=== PATIENT | female | born 1935 | race Caucasian/White ===

== ENCOUNTER 2017-01-27 20:16 | Inpatient (IN) | payer MEDICARE ==
[~2017-01-27] VITALS: Ht 154.9 cm; Wt 54.6 kg
--- NOTE | 2017-01-27 20:51 | ED.ADGEN ---
Adult General Chief Complaint Chief Complaint: POST-OP PROBLEM HPI HPI Patient is a 81 year old female with history of paroxysmal atrial fibrillation , currently not on anticoagulation, who presents with acute onset shortness of breath and palpitations starting approximately 90 minutes prior to ED arrival while walking at local store. Patient denies chest pain. She reports feeling weak and lightheaded. Blood pressure stable. Denies headache, focal neurologic weakness or other strokelike symptoms. Patient was heart rate 140 and an A. fib on sending EKG. Patient denies history of CAD or CHF. Denies leg pain or swelling. Patient reports recent bladder surgery 4 days ago in [place]. She is currently visiting from out of state. Review of Systems Review of Systems Review symptoms as per history of present illness. All other review symptoms are negative. Current Medications Current Medications Current Medications Medications (Trade) Dose Ordered Sig/Ruddy Start Time Stop Time Status Last Admin Dose Admin Digoxin (Lanoxin) 250 mcg 1X ONCE 01/27/17 22:15 01/27/17 22:16 DC 01/27/17 22:28 250 MCG Diltiazem HCl (Cardizem) 10 mg 1X ONCE 01/27/17 21:00 01/27/17 21:01 DC 01/27/17 20:57 10 MG Diltiazem HCl 125 mg/Dextrose 125 ml @ 0 mls/hr 1X ONCE 01/27/17 21:00 01/27/17 21:01 DC 01/27/17 21:00 5 MLS/HR Furosemide (Lasix) 40 mg 1X ONCE 01/27/17 22:15 01/27/17 22:16 DC 01/27/17 22:21 40 MG Heparin Sodium (Porcine) (Heparin Sodium) 1,350 unit PRN Q6HRS PRN 01/27/17 22:00 01/27/17 22:20 DC Heparin Sodium/ Dextrose 500 ml @ 0 mls/hr CONT PRN 01/27/17 22:00 01/27/17 22:20 DC Ondansetron HCl (Zofran) 4 mg PRN Q8HRS PRN 01/27/17 22:30 01/28/17 22:29 Sodium Chloride 1,000 ml @ 0 mls/hr Q0M 01/27/17 22:30 01/28/17 22:29 Allergies Allergies Allergies Coded Allergies Type Severity Reaction Last Updated Verified No Known Drug Allergies 01/27/17 No Physical Exam Physical Exam Constitutional: Well developed, well nourished, no acute distress. HENT: Normocephalic, atraumatic, bilateral external ears normal, oropharynx moist, no oral exudates, nose normal. Eyes: PERRLA, EOMI, conjunctiva normal. Neck: Normal range of motion. Cardiovascular: Tachycardic. Lungs & Thorax: Respirations nonlabored, lung sounds clear. Abdomen: Bowel sounds normal, soft, no tenderness. Skin: Warm, dry. Back: No tenderness. Extremities: Negative [place] signs. Neurologic: Alert and oriented X 3, normal motor function, normal sensory function, no focal deficits noted. Psychologic: Affect normal, judgement normal, mood normal. Current Patient Data Vital Signs Vital Signs Date Time Temp Pulse Resp B/P (MAP) Pulse Ox O2 Delivery O2 Flow Rate FiO2 01/27/17 23:30 138 140/82 (101) 96 Room Air 01/27/17 22:30 18 01/27/17 20:45 98.9 98.9 Lab Values Laboratory Tests Test 01/27/17 20:47 White Blood Count 8.7 x10^3/uL (4.0-11.0) Red Blood Count 4.13 x10^6/uL (3.50-5.40) Hemoglobin 12.5 g/dL (12.0-15.5) Hematocrit 37.4 % (36.0-47.0) Mean Corpuscular Volume 91 fL (79-100) Mean Corpuscular Hemoglobin 30 pg (25-35) Mean Corpuscular Hemoglobin Concent 33 g/dL (31-37) Red Cell Distribution Width 13.9 % (11.5-14.5) Platelet Count 223 x10^3/uL (140-400) Neutrophils (%) (Auto) 75 % (31-73) H Lymphocytes (%) (Auto) 15 % (24-48) L Monocytes (%) (Auto) 8 % (0-9) Eosinophils (%) (Auto) 1 % (0-3) Basophils (%) (Auto) 1 % (0-3) Neutrophils # (Auto) 6.6 x10^3uL (1.8-7.7) Lymphocytes # (Auto) 1.3 x10^3/uL (1.0-4.8) Monocytes # (Auto) 0.7 x10^3/uL (0.0-1.1) Eosinophils # (Auto) 0.1 x10^3/uL (0.0-0.7) Basophils # (Auto) 0.1 x10^3/uL (0.0-0.2) Prothrombin Time 12.3 SEC (11.7-14.0) Prothrombin Time INR 1.0 (0.8-1.1) Sodium Level 139 mmol/L (136-145) Potassium Level 3.8 mmol/L (3.5-5.1) Chloride Level 103 mmol/L (98-107) Carbon Dioxide Level 24 mmol/L (21-32) Anion Gap 12 (6-14) Blood Urea Nitrogen 29 mg/dL (7-20) H Creatinine 1.5 mg/dL (0.6-1.0) H Estimated GFR (Cockcroft-Gault) 33.2 BUN/Creatinine Ratio 19 (6-20) Glucose Level 176 mg/dL (70-99) H Calcium Level 9.2 mg/dL (8.5-10.1) Total Bilirubin 0.4 mg/dL (0.2-1.0) Aspartate Amino Transferase (AST) 35 U/L (15-37) Alanine Aminotransferase (ALT) 26 U/L (14-59) Alkaline Phosphatase 56 U/L (46-116) Troponin I Quantitative 0.019 ng/mL (0.000-0.055) DV-Lul-J-Type Natriuretic Peptide 8014 pg/mL (0-449) H Total Protein 7.1 g/dL (6.4-8.2) Albumin 3.4 g/dL (3.4-5.0) Albumin/Globulin Ratio 0.9 (1.0-1.7) L Laboratory Tests 01/27/17 20:47 Laboratory Tests 01/27/17 20:47 EKG EKG [EKG: A. fib with RVR.] Radiology/Procedures Radiology/Procedures [Chest X-ray: Increased pulmonary vascular congestion.] Course & Med Decision Making Course & Med Decision Making Pertinent Labs and Imaging studies reviewed. (See chart for details) [Patient with A. fib with RVR with poor tolerance of Cardizem due to hypotension. Single dose of digoxin and Lasix given with some improvement. IV fluids cautiously started. consult 8. Recommendations are CBC admission, continue IV Cardizem and hold heparin due to recent pelvic surgery. Dr. Wallis supervisor contact lens for hospitalist service to admit. ] Brit Disclaimer Brit Disclaimer This electronic medical record was generated, in whole or in part, using a voice recognition dictation system. MARTY JARAMILLO DO Jan 27, 2017 20:51
[2017-01-27] MEDS ORDERED: dilTIAZem IV PUSH 25 MG/5 ML VIAL IVP ONE (21:00)
[2017-01-27 21:03] LABS: BASO # 0.1 x10^3/uL (0.0-0.2); BASO % 1 % (0-3); EOS % 1 % (0-3); HEMATOCRIT 37.4 % (36.0-47.0); HEMOGLOBIN 12.5 g/dL (12.0-15.5); LYMPH # 1.3 x10^3/uL (1.0-4.8); LYMPH % 15 % (24-48); MEAN CORPUSCULAR HEMOGLOBIN 30 pg (25-35); MEAN CORPUSCULAR HGB CONC 33 g/dL (31-37); MEAN CORPUSCULAR VOLUME 91 fL (79-100); MONO % 8 % (0-9); NEUT % 75 % (31-73); PLATELET COUNT 223 x10^3/uL (140-400); RED BLOOD COUNT 4.13 x10^6/uL (3.50-5.40); RED CELL DISTRIBUTION WIDTH 13.9 % (11.5-14.5); WHITE BLOOD COUNT 8.7 x10^3/uL (4.0-11.0)
[2017-01-27 21:11] LABS: PROTHROMBIN TIME PATIENT 12.3 SEC (11.7-14.0)
[2017-01-27 21:17] LABS: CALCIUM 9.2 mg/dL (8.5-10.1); CREATININE 1.5 mg/dL (0.6-1.0); GFR 33.2; POTASSIUM 3.8 mmol/L (3.5-5.1)
[2017-01-27 21:23] LABS: ALBUMIN 3.4 g/dL (3.4-5.0); ALBUMIN/GLOBULIN RATIO 0.9 (1.0-1.7); TOTAL BILIRUBIN 0.4 mg/dL (0.2-1.0); TOTAL PROTEIN 7.1 g/dL (6.4-8.2)
[2017-01-27] MEDS ORDERED: HEPARIN for IV BOLUS 10,000 UNIT/10 ML VIAL. IV PRN (22:00)
[2017-01-27] MEDS ORDERED: HEPARIN 25,000UTS/500ML PREMIX 500 ML IV PRN (22:00)
[2017-01-27] MEDS ORDERED: FUROSEMIDE 40 MG/4 ML VIAL. IVP ONE (22:15)
[2017-01-27] MEDS ORDERED: DIGOXIN IV 500 MCG/2 ML AMPUL. IV ONE (22:15)
[2017-01-27] MEDS ORDERED: ONDANSETRON PF 4 MG/2 ML VIAL. IV PRN (22:30)
[2017-01-27] MEDS ORDERED: IV NORMAL SALINE 1000ML BAG 1,000 ML IV SCH (22:30)
[2017-01-28] VITALS (7 sets, daily range): BP systolic 106–162; BP diastolic 47–95
[2017-01-28] MEDS ORDERED: GABA-585 PO (01:15)
[2017-01-28] MEDS ORDERED: CALC-98 PO (01:15)
[2017-01-28] MEDS ORDERED: MULT1TAB52 PO (01:15)
[2017-01-28] MEDS ORDERED: ACET325T9 PO (01:15)
[2017-01-28] MEDS ORDERED: AMLO10TA4 PO (01:15)
[2017-01-28] MEDS ORDERED: CALC300T5 PO (01:15)
[2017-01-28] MEDS ORDERED: LISI-334 PO (01:15)
[2017-01-28 05:09] LABS: BASO # 0.1 x10^3/uL (0.0-0.2); BASO % 1 % (0-3); EOS % 2 % (0-3); HEMOGLOBIN 12.3 g/dL (12.0-15.5); LYMPH # 2.1 x10^3/uL (1.0-4.8); LYMPH % 25 % (24-48); MEAN CORPUSCULAR HEMOGLOBIN 30 pg (25-35); MEAN CORPUSCULAR HGB CONC 32 g/dL (31-37); MEAN CORPUSCULAR VOLUME 91 fL (79-100); MONO % 10 % (0-9); NEUT % 63 % (31-73); PLATELET COUNT 207 x10^3/uL (140-400); RED BLOOD COUNT 4.16 x10^6/uL (3.50-5.40); WHITE BLOOD COUNT 8.6 x10^3/uL (4.0-11.0)
[2017-01-28] MEDS: ACETAMINOPHEN 325 MG TABLET. PO PRN (05:09)
[2017-01-28 05:44] LABS: CALCIUM 8.6 mg/dL (8.5-10.1); CREATININE 1.3 mg/dL (0.6-1.0); GFR 39.1; POTASSIUM 3.5 mmol/L (3.5-5.1)
--- NOTE | 2017-01-28 07:24 | EKG ---
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
--- NOTE | 2017-01-28 08:19 | RAD ---
AP portable chest. History: Short of air Portable AP view was taken of the chest. There is no old study for comparison. The heart is upper normal in size. There are no confluent areas of infiltrate. There is no effusion. The aorta is mildly tortuous. There is arthritis in the shoulders. There is mild scoliosis. Impression: 1. Mild cardiac enlargement. 2. No acute infiltrates.
[2017-01-28] MEDS ORDERED: FUROSEMIDE 40 MG/4 ML VIAL. IVP SCH (09:00)
--- NOTE | 2017-01-28 11:37 | PDOC2 ---
CARDIAC CONSULT DATE OF CONSULT Date of Consult DATE: 01/28/17 TIME: 11:28 REASON FOR CONSULT Reason for Consult: AFIB RVR, CHF REFERRING PHYSICIAN Referring Physician: Kishore SOURCE Source: Chart review, Patient HISTORY OF PRESENT ILLNESS HISTORY OF PRESENT ILLNESS This is an 81 yo female admitted for complains of weakness. Reports that she is staying here with her son since she just had bladder suspension from 01/23/2017 at [place]. She resides at [place] and sees a music ministries director over there. She does not take any rate controlling medications and no ASA. 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 While she was at the grocery store, she just suddenly felt weak. Denies any CP, SOA, palpitations. Upon admission she was noted with AFIB RVR which she was treated with Digoxin and cardizem and actually had several episodes this am with HR in the 40s. Presently still on AFIB but rate controlled. 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; left nephrectomy) FAMILY HISTORY Family History noncontributory to CV SOCIAL HISTORY Smoke: No ALCOHOL: none Drugs: None Lives: Alone CURRENT MEDICATIONS CURRENT MEDICATIONS Current Medications Medications (Trade) Dose Ordered Sig/Ruddy Route PRN Reason Start Time Stop Time Status Last Admin Dose Admin Diltiazem HCl (Cardizem) 10 mg 1X ONCE IVP 01/27/17 21:00 01/27/17 21:01 DC 01/27/17 20:57 Diltiazem HCl 125 mg/Dextrose 125 ml @ 0 mls/hr 1X ONCE IV 01/27/17 21:00 01/27/17 21:01 DC 01/27/17 21:00 Digoxin (Lanoxin) 250 mcg 1X ONCE IV 01/27/17 22:15 01/27/17 22:16 DC 01/27/17 22:28 Furosemide (Lasix) 40 mg 1X ONCE IVP 01/27/17 22:15 01/27/17 22:16 DC 01/27/17 22:21 Furosemide (Lasix) 40 mg [id number] IVP 01/28/17 09:00 01/28/17 08:36 Diltiazem HCl 125 mg/Dextrose 125 ml @ 0 mls/hr 1X ONCE IV 01/28/17 00:15 01/28/17 00:16 DC 01/28/17 09:31 Acetaminophen (Tylenol) 650 mg PRN Q6HRS PRN PO PAIN 01/28/17 04:45 01/28/17 05:09 ALLERGIES ALLERGIES: Coded Allergies: No Known Drug Allergies (Unverified , 01/27/17) ROS Review of System 14 point ROS evaluated with pertinent positives noted per HPI PHYSICAL EXAM General: Alert, Oriented X3, Cooperative, No acute distress HEENT: Atraumatic, Mucous membr. moist/pink Lungs: Clear to auscultation, Normal air movement Heart: Regular rate, Normal S1, Normal S2, Other (4/6 systolic murmur to NITZA border) Abdomen: Soft, No tenderness Extremities: No cyanosis, No edema Skin: No breakdown Neuro: Normal speech, Sensation intact Psych/Mental Status: Mental status NL, Mood NL MUSCULOSKELETAL: Osteoarthritic changes both hands VITALS VITALS Vital Signs Date Time Temp Pulse Resp B/P (MAP) Pulse Ox O2 Delivery O2 Flow Rate FiO2 01/28/17 09:44 Room Air 01/28/17 07:30 97.5 74 20 112/61 (78) 96 97.5 LABS Lab: Laboratory Tests Test 01/27/17 20:47 01/28/17 04:30 01/28/17 10:29 White Blood Count 8.7 x10^3/uL (4.0-11.0) 8.6 x10^3/uL (4.0-11.0) Red Blood Count 4.13 x10^6/uL (3.50-5.40) 4.16 x10^6/uL (3.50-5.40) Hemoglobin 12.5 g/dL (12.0-15.5) 12.3 g/dL (12.0-15.5) Hematocrit 37.4 % (36.0-47.0) 38.0 % (36.0-47.0) Mean Corpuscular Volume 91 fL (79-100) 91 fL (79-100) Mean Corpuscular Hemoglobin 30 pg (25-35) 30 pg (25-35) Mean Corpuscular Hemoglobin Concent 33 g/dL (31-37) 32 g/dL (31-37) Red Cell Distribution Width 13.9 % (11.5-14.5) 14.0 % (11.5-14.5) Platelet Count 223 x10^3/uL (140-400) 207 x10^3/uL (140-400) Neutrophils (%) (Auto) 75 % (31-73) 63 % (31-73) Lymphocytes (%) (Auto) 15 % (24-48) 25 % (24-48) Monocytes (%) (Auto) 8 % (0-9) 10 % (0-9) Eosinophils (%) (Auto) 1 % (0-3) 2 % (0-3) Basophils (%) (Auto) 1 % (0-3) 1 % (0-3) Neutrophils # (Auto) 6.6 x10^3uL (1.8-7.7) 5.4 x10^3uL (1.8-7.7) Lymphocytes # (Auto) 1.3 x10^3/uL (1.0-4.8) 2.1 x10^3/uL (1.0-4.8) Monocytes # (Auto) 0.7 x10^3/uL (0.0-1.1) 0.9 x10^3/uL (0.0-1.1) Eosinophils # (Auto) 0.1 x10^3/uL (0.0-0.7) 0.1 x10^3/uL (0.0-0.7) Basophils # (Auto) 0.1 x10^3/uL (0.0-0.2) 0.1 x10^3/uL (0.0-0.2) Prothrombin Time 12.3 SEC (11.7-14.0) Prothromb Time International Ratio 1.0 (0.8-1.1) Sodium Level 139 mmol/L (136-145) 141 mmol/L (136-145) Potassium Level 3.8 mmol/L (3.5-5.1) 3.5 mmol/L (3.5-5.1) Chloride Level 103 mmol/L (98-107) 105 mmol/L (98-107) Carbon Dioxide Level 24 mmol/L (21-32) 25 mmol/L (21-32) Anion Gap 12 (6-14) 11 (6-14) Blood Urea Nitrogen 29 mg/dL (7-20) 35 mg/dL (7-20) Creatinine 1.5 mg/dL (0.6-1.0) 1.3 mg/dL (0.6-1.0) Estimated GFR (Cockcroft-Gault) 33.2 39.1 BUN/Creatinine Ratio 19 (6-20) Glucose Level 176 mg/dL (70-99) 118 mg/dL (70-99) Calcium Level 9.2 mg/dL (8.5-10.1) 8.6 mg/dL (8.5-10.1) Total Bilirubin 0.4 mg/dL (0.2-1.0) Aspartate Amino Transf (AST/SGOT) 35 U/L (15-37) Alanine Aminotransferase (ALT/SGPT) 26 U/L (14-59) Alkaline Phosphatase 56 U/L (46-116) Troponin I Quantitative 0.019 ng/mL (0.000-0.055) 0.321 ng/mL (0.000-0.055) XT-Gds-V-Type Natriuretic Peptide 8014 pg/mL (0-449) Total Protein 7.1 g/dL (6.4-8.2) Albumin 3.4 g/dL (3.4-5.0) Albumin/Globulin Ratio 0.9 (1.0-1.7) Thyroid Stimulating Hormone (TSH) 1.141 uIU/mL (0.358-3.74) ASSESSMENT/PLAN ASSESSMENT/PLAN 1. AFIB/flutter RVR with aberrancy: Presently rate controlled. Troponin at 0.321 likely demand mediated from RVR. 2. Elevated pro NT BNP: due to above. No acute CHF 3. HTN: Controlled Recommendations 1. Refused OAC/SIMON due to only one kidney. Agreed with [facility]. 2. Stop cardizem and will place on 12.5 mg of lopressor [id number] and note BP trend and HR response 3. DC lasix. Pt on norvasc and lisinopril at home and will hold for now. 4. TSH normal, will also check lipid panel and TTE tomorrow. 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
[2017-01-28 11:55] LABS: MAGNESIUM 1.9 mg/dL (1.8-2.4)
[2017-01-28] MEDS: METOPROLOL TART IMMED RELEASE 25 MG TABLET. PO SCH ×3 (11:55→23:22)
[2017-01-28] MEDS: ASPIRIN ENTERIC COATED 81 MG TABLET.DR. PO SCH (11:55)
[2017-01-28 12:00] LABS: CHOLESTEROL/HDL RATIO 2.7
[2017-01-28] MEDS ORDERED: POTASSIUM CHLORIDE 20 MEQ TABLET.ER. PO ONE (13:30)
--- NOTE | 2017-01-28 14:13 | PDOC1 ---
History and Physical Date of Admission Date of Admission 01/28/17 Identification/Chief Complaint Chief Complaint palpitation Problems: Source Source: Caregiver, Chart review, Patient History of Present Illness History of Present Illness Patient is a 81 year old female with history of paroxysmal atrial fibrillation, sinus and not on any meds on AFIb ,came for palpitation. Pt came from [place] to visit her son. She was found rapid afib in ER, on cardizem drip and STILL afib, HR ok at 80s. She denies chest pain, sob, fever, chills, N/V. no h/o CAD OR CHF. Patient reports recent bladder surgery 4 days ago in [place]. 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; left nephrectomy) Family History Family History: Hypertension Social History Smoke: No ALCOHOL: none Drugs: None Current Problem List Problem List Problems Medical Problems: (1) Atrial fibrillation with RVR Status: Acute (2) CHF (congestive heart failure) Status: Acute Current Medications Current Medications Current Medications Medications (Trade) Dose Ordered Sig/Ruddy Start Time Stop Time Status Last Admin Dose Admin Acetaminophen (Tylenol) 650 mg PRN Q6HRS PRN 01/28/17 04:45 01/28/17 05:09 325 MG Aspirin (Ecotrin) 81 mg [id number] 01/29/17 08:00 UNV Digoxin (Lanoxin) 250 mcg 1X ONCE 01/27/17 22:15 01/27/17 22:16 DC 01/27/17 22:28 250 MCG Diltiazem HCl (Cardizem) 10 mg 1X ONCE 01/27/17 21:00 01/27/17 21:01 DC 01/27/17 20:57 10 MG Diltiazem HCl 125 mg/Dextrose 125 ml @ 0 mls/hr 1X ONCE 01/28/17 00:15 01/28/17 00:16 DC 01/28/17 09:31 10 MLS/HR Furosemide (Lasix) 40 mg [id number] 01/28/17 09:00 01/28/17 11:38 DC 01/28/17 08:36 40 MG Heparin Sodium (Porcine) (Heparin Sodium) 1,350 unit PRN Q6HRS PRN 01/27/17 22:00 01/27/17 22:20 DC Heparin Sodium/ Dextrose 500 ml @ 0 mls/hr CONT PRN 01/27/17 22:00 01/27/17 22:20 DC Metoprolol Tartrate (Lopressor) 12.5 mg Q6HRS 01/28/17 12:00 01/28/17 11:55 12.5 MG Ondansetron HCl (Zofran) 4 mg PRN Q8HRS PRN 01/27/17 22:30 01/28/17 22:29 Potassium Chloride (Klor-Con) 40 meq 1X ONCE 01/28/17 13:30 01/28/17 13:31 DC 01/28/17 13:28 40 MEQ Sodium Chloride 1,000 ml @ 0 mls/hr Q0M 01/27/17 22:30 01/28/17 22:29 Allergies Allergies Allergies Coded Allergies Type Severity Reaction Last Updated Verified No Known Drug Allergies 01/27/17 No ROS Review of System CONSTITUTIONAL: No fever or chills EYES: No recent changes SKIN: No rash or itching CARDIOVASCULAR: No chest pain, syncope, palpitations, or edema RESPIRATORY: No SOB or cough GASTROINTESTINAL: No nausea, vomiting or abdominal pain NEUROLOGICAL: No headaches or weakness ENDOCRINE: No cold or heat intolerance GENITOURINARY: No urgency or frequency of urination MUSCULOSKELETAL: No back pain or joint pain LYMPHATICS: No enlarged lymph nodes PSYCHIATRIC: No anxiety or depression Physical Exam Physical Exam GEN.: No apparent distress. Alert and oriented. HEENT: Head is normocephalic, atraumatic NECK: Supple. LUNGS: Clear to auscultation. HEART: irregular, S1, S2 present. Peripheral pulses intact ABDOMEN: Soft, nontender. Positive bowel sounds. EXTREMITIES: Without any cyanosis. NEUROLOGIC: Normal speech, normal tone PSYCHIATRIC: Normal affect, normal mood. SKIN: No ulcerations Vitals Vitals Vital Signs Date Time Temp Pulse Resp B/P (MAP) Pulse Ox O2 Delivery O2 Flow Rate FiO2 01/28/17 11:55 74 112/61 7/15/17 11:15 97.5 20 97 Room Air 97.5 Labs Labs Laboratory Tests Test 01/27/17 20:47 01/28/17 04:30 01/28/17 10:29 White Blood Count 8.7 x10^3/uL (4.0-11.0) 8.6 x10^3/uL (4.0-11.0) Red Blood Count 4.13 x10^6/uL (3.50-5.40) 4.16 x10^6/uL (3.50-5.40) Hemoglobin 12.5 g/dL (12.0-15.5) 12.3 g/dL (12.0-15.5) Hematocrit 37.4 % (36.0-47.0) 38.0 % (36.0-47.0) Mean Corpuscular Volume 91 fL (79-100) 91 fL (79-100) Mean Corpuscular Hemoglobin 30 pg (25-35) 30 pg (25-35) Mean Corpuscular Hemoglobin Concent 33 g/dL (31-37) 32 g/dL (31-37) Red Cell Distribution Width 13.9 % (11.5-14.5) 14.0 % (11.5-14.5) Platelet Count 223 x10^3/uL (140-400) 207 x10^3/uL (140-400) Neutrophils (%) (Auto) 75 % (31-73) 63 % (31-73) Lymphocytes (%) (Auto) 15 % (24-48) 25 % (24-48) Monocytes (%) (Auto) 8 % (0-9) 10 % (0-9) Eosinophils (%) (Auto) 1 % (0-3) 2 % (0-3) Basophils (%) (Auto) 1 % (0-3) 1 % (0-3) Neutrophils # (Auto) 6.6 x10^3uL (1.8-7.7) 5.4 x10^3uL (1.8-7.7) Lymphocytes # (Auto) 1.3 x10^3/uL (1.0-4.8) 2.1 x10^3/uL (1.0-4.8) Monocytes # (Auto) 0.7 x10^3/uL (0.0-1.1) 0.9 x10^3/uL (0.0-1.1) Eosinophils # (Auto) 0.1 x10^3/uL (0.0-0.7) 0.1 x10^3/uL (0.0-0.7) Basophils # (Auto) 0.1 x10^3/uL (0.0-0.2) 0.1 x10^3/uL (0.0-0.2) Prothrombin Time 12.3 SEC (11.7-14.0) Prothromb Time International Ratio 1.0 (0.8-1.1) Sodium Level 139 mmol/L (136-145) 141 mmol/L (136-145) Potassium Level 3.8 mmol/L (3.5-5.1) 3.5 mmol/L (3.5-5.1) Chloride Level 103 mmol/L (98-107) 105 mmol/L (98-107) Carbon Dioxide Level 24 mmol/L (21-32) 25 mmol/L (21-32) Anion Gap 12 (6-14) 11 (6-14) Blood Urea Nitrogen 29 mg/dL (7-20) 35 mg/dL (7-20) Creatinine 1.5 mg/dL (0.6-1.0) 1.3 mg/dL (0.6-1.0) Estimated GFR (Cockcroft-Gault) 33.2 39.1 BUN/Creatinine Ratio 19 (6-20) Glucose Level 176 mg/dL (70-99) 118 mg/dL (70-99) Calcium Level 9.2 mg/dL (8.5-10.1) 8.6 mg/dL (8.5-10.1) Total Bilirubin 0.4 mg/dL (0.2-1.0) Aspartate Amino Transf (AST/SGOT) 35 U/L (15-37) Alanine Aminotransferase (ALT/SGPT) 26 U/L (14-59) Alkaline Phosphatase 56 U/L (46-116) Troponin I Quantitative 0.019 ng/mL (0.000-0.055) 0.321 ng/mL (0.000-0.055) MS-Zyp-Q-Type Natriuretic Peptide 8014 pg/mL (0-449) Total Protein 7.1 g/dL (6.4-8.2) Albumin 3.4 g/dL (3.4-5.0) Albumin/Globulin Ratio 0.9 (1.0-1.7) Magnesium Level 1.9 mg/dL (1.8-2.4) Triglycerides Level 87 mg/dL (0-150) Cholesterol Level 166 mg/dL (0-200) LDL Cholesterol, Calculated 87 mg/dL (0-100) VLDL Cholesterol, Calculated 17 mg/dL (0-40) Non-HDL Cholesterol Calculated 104 mg/dL (0-129) HDL Cholesterol 62 mg/dL (40-60) Cholesterol/HDL Ratio 2.7 Thyroid Stimulating Hormone (TSH) 1.141 uIU/mL (0.358-3.74) Laboratory Tests Test 01/27/17 20:47 01/28/17 04:30 01/28/17 10:29 White Blood Count 8.7 x10^3/uL (4.0-11.0) 8.6 x10^3/uL (4.0-11.0) Red Blood Count 4.13 x10^6/uL (3.50-5.40) 4.16 x10^6/uL (3.50-5.40) Hemoglobin 12.5 g/dL (12.0-15.5) 12.3 g/dL (12.0-15.5) Hematocrit 37.4 % (36.0-47.0) 38.0 % (36.0-47.0) Mean Corpuscular Volume 91 fL (79-100) 91 fL (79-100) Mean Corpuscular Hemoglobin 30 pg (25-35) 30 pg (25-35) Mean Corpuscular Hemoglobin Concent 33 g/dL (31-37) 32 g/dL (31-37) Red Cell Distribution Width 13.9 % (11.5-14.5) 14.0 % (11.5-14.5) Platelet Count 223 x10^3/uL (140-400) 207 x10^3/uL (140-400) Neutrophils (%) (Auto) 75 % (31-73) 63 % (31-73) Lymphocytes (%) (Auto) 15 % (24-48) 25 % (24-48) Monocytes (%) (Auto) 8 % (0-9) 10 % (0-9) Eosinophils (%) (Auto) 1 % (0-3) 2 % (0-3) Basophils (%) (Auto) 1 % (0-3) 1 % (0-3) Neutrophils # (Auto) 6.6 x10^3uL (1.8-7.7) 5.4 x10^3uL (1.8-7.7) Lymphocytes # (Auto) 1.3 x10^3/uL (1.0-4.8) 2.1 x10^3/uL (1.0-4.8) Monocytes # (Auto) 0.7 x10^3/uL (0.0-1.1) 0.9 x10^3/uL (0.0-1.1) Eosinophils # (Auto) 0.1 x10^3/uL (0.0-0.7) 0.1 x10^3/uL (0.0-0.7) Basophils # (Auto) 0.1 x10^3/uL (0.0-0.2) 0.1 x10^3/uL (0.0-0.2) Prothrombin Time 12.3 SEC (11.7-14.0) Prothromb Time International Ratio 1.0 (0.8-1.1) Sodium Level 139 mmol/L (136-145) 141 mmol/L (136-145) Potassium Level 3.8 mmol/L (3.5-5.1) 3.5 mmol/L (3.5-5.1) Chloride Level 103 mmol/L (98-107) 105 mmol/L (98-107) Carbon Dioxide Level 24 mmol/L (21-32) 25 mmol/L (21-32) Anion Gap 12 (6-14) 11 (6-14) Blood Urea Nitrogen 29 mg/dL (7-20) 35 mg/dL (7-20) Creatinine 1.5 mg/dL (0.6-1.0) 1.3 mg/dL (0.6-1.0) Estimated GFR (Cockcroft-Gault) 33.2 39.1 BUN/Creatinine Ratio 19 (6-20) Glucose Level 176 mg/dL (70-99) 118 mg/dL (70-99) Calcium Level 9.2 mg/dL (8.5-10.1) 8.6 mg/dL (8.5-10.1) Total Bilirubin 0.4 mg/dL (0.2-1.0) Aspartate Amino Transf (AST/SGOT) 35 U/L (15-37) Alanine Aminotransferase (ALT/SGPT) 26 U/L (14-59) Alkaline Phosphatase 56 U/L (46-116) Troponin I Quantitative 0.019 ng/mL (0.000-0.055) 0.321 ng/mL (0.000-0.055) ID-Qcy-U-Type Natriuretic Peptide 8014 pg/mL (0-449) Total Protein 7.1 g/dL (6.4-8.2) Albumin 3.4 g/dL (3.4-5.0) Albumin/Globulin Ratio 0.9 (1.0-1.7) Magnesium Level 1.9 mg/dL (1.8-2.4) Triglycerides Level 87 mg/dL (0-150) Cholesterol Level 166 mg/dL (0-200) LDL Cholesterol, Calculated 87 mg/dL (0-100) VLDL Cholesterol, Calculated 17 mg/dL (0-40) Non-HDL Cholesterol Calculated 104 mg/dL (0-129) HDL Cholesterol 62 mg/dL (40-60) Cholesterol/HDL Ratio 2.7 Thyroid Stimulating Hormone (TSH) 1.141 uIU/mL (0.358-3.74) VTE Prophylaxis Ordered VTE Prophylaxis Devices: Yes VTE Pharmacological Prophylaxi: Yes Assessment/Plan Assessment/Plan rapid afib htn neuropathy ckd3 1 kidney plan: fu with card shoshana omer, add metoprolol 12.5 q6h hold other htn Meds since BP is ok cont gabapentin dvt ppx no AC for now DAKOTA ARGUETA MD Jan 28, 2017 14:13
[2017-01-28] MEDS ORDERED: traMADol 50 MG TABLET PO PRN (14:15)
[2017-01-28] MEDS ORDERED: MORPHINE SULFATE 2 MG/ML DISP.SYRIN. IV PRN (14:15)
[2017-01-28] MEDS ORDERED: hydrALAZINE 20 MG/ML VIAL. IVP PRN (14:15)
[2017-01-28] MEDS ORDERED: ONDANSETRON PF 4 MG/2 ML VIAL. IV PRN (14:15)
[2017-01-28] MEDS ORDERED: DOCUSATE SODIUM 100 MG CAPSULE. PO PRN (14:15)
[2017-01-28] MEDS: GABAPENTIN 100 MG CAPSULE. PO SCH ×2 (15:59→20:52)
[2017-01-28] MEDS: HEPARIN PF for SUB-Q USE 5,000 UNIT/0.5 ML VIAL. SQ SCH ×2 (16:04→23:15)
--- NOTE | 2017-01-28 16:05 | EKG ---
[facility] [address] [place] [address] Test Date: 2017-01-28 Test Time: 15:52:29 Pat Name: JULIETTE GAO Department: Room: 205 1 Gender: F [employer]: THEODORE : 1935 Requested By: GUNNAR PANIAGUA Order Number: [id number] Reading MD: Measurements Intervals [place] Rate: 79 P: PA: QRS: -46 QRSD: 98 T: -146 QT: 408 QTc: 469 Interpretive Statements IRREGULAR RHYTHM, NO P-WAVE FOUND VENTRICULAR PREMATURE COMPLEX(ES) ABNORMAL LEFT AXIS DEVIATION LEFT ANTERIOR FASCICULAR BLOCK LVH WITH REPOLARIZATION ABNORMALITY QRS(T) CONTOUR ABNORMALITY CONSIDER ANTEROSEPTAL MYOCARDIAL DAMAGE ABNORMAL ECG RI6.01 No previous ECG available for comparison
[2017-01-29 03:35] VITALS: BP 110/57
[2017-01-29] MEDS: ACETAMINOPHEN 325 MG TABLET. PO PRN ×2 (03:58→12:53)
[2017-01-29 05:36] LABS: BASO # 0.1 x10^3/uL (0.0-0.2); BASO % 1 % (0-3); EOS % 3 % (0-3); HEMATOCRIT 35.8 % (36.0-47.0); HEMOGLOBIN 12.1 g/dL (12.0-15.5); LYMPH # 3.4 x10^3/uL (1.0-4.8); LYMPH % 42 % (24-48); MEAN CORPUSCULAR HEMOGLOBIN 30 pg (25-35); MEAN CORPUSCULAR HGB CONC 34 g/dL (31-37); MEAN CORPUSCULAR VOLUME 90 fL (79-100); MONO % 9 % (0-9); NEUT % 46 % (31-73); PLATELET COUNT 225 x10^3/uL (140-400); RED BLOOD COUNT 3.98 x10^6/uL (3.50-5.40); RED CELL DISTRIBUTION WIDTH 14.2 % (11.5-14.5)
[2017-01-29 05:46] LABS: CALCIUM 8.1 mg/dL (8.5-10.1); CREATININE 1.3 mg/dL (0.6-1.0); GFR 39.1; POTASSIUM 4.1 mmol/L (3.5-5.1)
[2017-01-29] MEDS: HEPARIN PF for SUB-Q USE 5,000 UNIT/0.5 ML VIAL. SQ SCH ×3 (06:20→22:07)
[2017-01-29] MEDS: METOPROLOL TART IMMED RELEASE 25 MG TABLET. PO SCH ×3 (06:25→17:10)
[2017-01-29 07:00] VITALS: BP 109/72
[2017-01-29] MEDS: GABAPENTIN 100 MG CAPSULE. PO SCH ×2 (07:56→22:04)
[2017-01-29] MEDS: ASPIRIN ENTERIC COATED 81 MG TABLET.DR. PO SCH (07:56)
[2017-01-29] MEDS ORDERED: ASPIRIN ENTERIC COATED 81 MG TABLET.DR. PO SCH (08:00)
[2017-01-29] MEDS ORDERED: DIGOXIN 250 MCG TABLET. PO STA (09:13)
[2017-01-29 11:00] VITALS: BP 132/74
--- NOTE | 2017-01-29 13:06 | PDOC ---
PROGRESS NOTES Chief Complaint Chief Complaint rapid afib htn neuropathy ckd3 1 kidney plan: fu with card dc cardizem drip, add metoprolol 12.5 q6h BP lower side, add dig x1, hope bp better then can increase metoprolol hold other htn Meds since BP is ok cont gabapentin dvt ppx no AC for now History of Present Illness History of Present Illness still rapid afib, cardizem drip stopped, on low dose metoprolol, bp lower side Vitals Vitals Vital Signs Date Time Temp Pulse Resp B/P (MAP) Pulse Ox O2 Delivery O2 Flow Rate FiO2 01/29/17 12:54 97 132/74 01/29/17 11:00 98.1 16 94 Room Air 98.1 Physical Exam General: Alert, Oriented X3, Cooperative, No acute distress Heart: Normal S1, Normal S2, Other (4/6 systolic murmur to NITZA border, irregular) Lungs: Clear Abdomen: Soft, No tenderness Extremities: No cyanosis, No edema Skin: No breakdown Labs LABS Laboratory Tests Test 01/29/17 04:38 White Blood Count 8.0 x10^3/uL (4.0-11.0) Red Blood Count 3.98 x10^6/uL (3.50-5.40) Hemoglobin 12.1 g/dL (12.0-15.5) Hematocrit 35.8 % (36.0-47.0) Mean Corpuscular Volume 90 fL (79-100) Mean Corpuscular Hemoglobin 30 pg (25-35) Mean Corpuscular Hemoglobin Concent 34 g/dL (31-37) Red Cell Distribution Width 14.2 % (11.5-14.5) Platelet Count 225 x10^3/uL (140-400) Neutrophils (%) (Auto) 46 % (31-73) Lymphocytes (%) (Auto) 42 % (24-48) Monocytes (%) (Auto) 9 % (0-9) Eosinophils (%) (Auto) 3 % (0-3) Basophils (%) (Auto) 1 % (0-3) Neutrophils # (Auto) 3.7 x10^3uL (1.8-7.7) Lymphocytes # (Auto) 3.4 x10^3/uL (1.0-4.8) Monocytes # (Auto) 0.7 x10^3/uL (0.0-1.1) Eosinophils # (Auto) 0.2 x10^3/uL (0.0-0.7) Basophils # (Auto) 0.1 x10^3/uL (0.0-0.2) Sodium Level 142 mmol/L (136-145) Potassium Level 4.1 mmol/L (3.5-5.1) Chloride Level 107 mmol/L (98-107) Carbon Dioxide Level 22 mmol/L (21-32) Anion Gap 13 (6-14) Blood Urea Nitrogen 37 mg/dL (7-20) Creatinine 1.3 mg/dL (0.6-1.0) Estimated GFR (Cockcroft-Gault) 39.1 Glucose Level 107 mg/dL (70-99) Calcium Level 8.1 mg/dL (8.5-10.1) Review of Systems Review of Systems no fever, chills, sob or chest pain Assessment and Plan Assessmemt and Plan Problems Medical Problems: (1) Atrial fibrillation with RVR Status: Acute (2) CHF (congestive heart failure) Status: Acute Problems: Comment Review of Relevant I have reviewed the following items rica (where applicable) has been applied. Labs Laboratory Tests Test 01/27/17 20:47 01/28/17 04:30 01/28/17 10:29 01/29/17 04:38 White Blood Count 8.7 x10^3/uL (4.0-11.0) 8.6 x10^3/uL (4.0-11.0) 8.0 x10^3/uL (4.0-11.0) Red Blood Count 4.13 x10^6/uL (3.50-5.40) 4.16 x10^6/uL (3.50-5.40) 3.98 x10^6/uL (3.50-5.40) Hemoglobin 12.5 g/dL (12.0-15.5) 12.3 g/dL (12.0-15.5) 12.1 g/dL (12.0-15.5) Hematocrit 37.4 % (36.0-47.0) 38.0 % (36.0-47.0) 35.8 % (36.0-47.0) Mean Corpuscular Volume 91 fL (79-100) 91 fL (79-100) 90 fL (79-100) Mean Corpuscular Hemoglobin 30 pg (25-35) 30 pg (25-35) 30 pg (25-35) Mean Corpuscular Hemoglobin Concent 33 g/dL (31-37) 32 g/dL (31-37) 34 g/dL (31-37) Red Cell Distribution Width 13.9 % (11.5-14.5) 14.0 % (11.5-14.5) 14.2 % (11.5-14.5) Platelet Count 223 x10^3/uL (140-400) 207 x10^3/uL (140-400) 225 x10^3/uL (140-400) Neutrophils (%) (Auto) 75 % (31-73) 63 % (31-73) 46 % (31-73) Lymphocytes (%) (Auto) 15 % (24-48) 25 % (24-48) 42 % (24-48) Monocytes (%) (Auto) 8 % (0-9) 10 % (0-9) 9 % (0-9) Eosinophils (%) (Auto) 1 % (0-3) 2 % (0-3) 3 % (0-3) Basophils (%) (Auto) 1 % (0-3) 1 % (0-3) 1 % (0-3) Neutrophils # (Auto) 6.6 x10^3uL (1.8-7.7) 5.4 x10^3uL (1.8-7.7) 3.7 x10^3uL (1.8-7.7) Lymphocytes # (Auto) 1.3 x10^3/uL (1.0-4.8) 2.1 x10^3/uL (1.0-4.8) 3.4 x10^3/uL (1.0-4.8) Monocytes # (Auto) 0.7 x10^3/uL (0.0-1.1) 0.9 x10^3/uL (0.0-1.1) 0.7 x10^3/uL (0.0-1.1) Eosinophils # (Auto) 0.1 x10^3/uL (0.0-0.7) 0.1 x10^3/uL (0.0-0.7) 0.2 x10^3/uL (0.0-0.7) Basophils # (Auto) 0.1 x10^3/uL (0.0-0.2) 0.1 x10^3/uL (0.0-0.2) 0.1 x10^3/uL (0.0-0.2) Prothrombin Time 12.3 SEC (11.7-14.0) Prothromb Time International Ratio 1.0 (0.8-1.1) Sodium Level 139 mmol/L (136-145) 141 mmol/L (136-145) 142 mmol/L (136-145) Potassium Level 3.8 mmol/L (3.5-5.1) 3.5 mmol/L (3.5-5.1) 4.1 mmol/L (3.5-5.1) Chloride Level 103 mmol/L (98-107) 105 mmol/L (98-107) 107 mmol/L (98-107) Carbon Dioxide Level 24 mmol/L (21-32) 25 mmol/L (21-32) 22 mmol/L (21-32) Anion Gap 12 (6-14) 11 (6-14) 13 (6-14) Blood Urea Nitrogen 29 mg/dL (7-20) 35 mg/dL (7-20) 37 mg/dL (7-20) Creatinine 1.5 mg/dL (0.6-1.0) 1.3 mg/dL (0.6-1.0) 1.3 mg/dL (0.6-1.0) Estimated GFR (Cockcroft-Gault) 33.2 39.1 39.1 BUN/Creatinine Ratio 19 (6-20) Glucose Level 176 mg/dL (70-99) 118 mg/dL (70-99) 107 mg/dL (70-99) Calcium Level 9.2 mg/dL (8.5-10.1) 8.6 mg/dL (8.5-10.1) 8.1 mg/dL (8.5-10.1) Total Bilirubin 0.4 mg/dL (0.2-1.0) Aspartate Amino Transf (AST/SGOT) 35 U/L (15-37) Alanine Aminotransferase (ALT/SGPT) 26 U/L (14-59) Alkaline Phosphatase 56 U/L (46-116) Troponin I Quantitative 0.019 ng/mL (0.000-0.055) 0.321 ng/mL (0.000-0.055) JS-[id number]-[id number]-Type Natriuretic Peptide 8014 pg/mL (0-449) Total Protein 7.1 g/dL (6.4-8.2) Albumin 3.4 g/dL (3.4-5.0) Albumin/Globulin Ratio 0.9 (1.0-1.7) Magnesium Level 1.9 mg/dL (1.8-2.4) Triglycerides Level 87 mg/dL (0-150) Cholesterol Level 166 mg/dL (0-200) LDL Cholesterol, Calculated 87 mg/dL (0-100) VLDL Cholesterol, Calculated 17 mg/dL (0-40) Non-HDL Cholesterol Calculated 104 mg/dL (0-129) HDL Cholesterol 62 mg/dL (40-60) Cholesterol/HDL Ratio 2.7 Thyroid Stimulating Hormone (TSH) 1.141 uIU/mL (0.358-3.74) Laboratory Tests Test 01/29/17 04:38 White Blood Count 8.0 x10^3/uL (4.0-11.0) Red Blood Count 3.98 x10^6/uL (3.50-5.40) Hemoglobin 12.1 g/dL (12.0-15.5) Hematocrit 35.8 % (36.0-47.0) Mean Corpuscular Volume 90 fL (79-100) Mean Corpuscular Hemoglobin 30 pg (25-35) Mean Corpuscular Hemoglobin Concent 34 g/dL (31-37) Red Cell Distribution Width 14.2 % (11.5-14.5) Platelet Count 225 x10^3/uL (140-400) Neutrophils (%) (Auto) 46 % (31-73) Lymphocytes (%) (Auto) 42 % (24-48) Monocytes (%) (Auto) 9 % (0-9) Eosinophils (%) (Auto) 3 % (0-3) Basophils (%) (Auto) 1 % (0-3) Neutrophils # (Auto) 3.7 x10^3uL (1.8-7.7) Lymphocytes # (Auto) 3.4 x10^3/uL (1.0-4.8) Monocytes # (Auto) 0.7 x10^3/uL (0.0-1.1) Eosinophils # (Auto) 0.2 x10^3/uL (0.0-0.7) Basophils # (Auto) 0.1 x10^3/uL (0.0-0.2) Sodium Level 142 mmol/L (136-145) Potassium Level 4.1 mmol/L (3.5-5.1) Chloride Level 107 mmol/L (98-107) Carbon Dioxide Level 22 mmol/L (21-32) Anion Gap 13 (6-14) Blood Urea Nitrogen 37 mg/dL (7-20) Creatinine 1.3 mg/dL (0.6-1.0) Estimated GFR (Cockcroft-Gault) 39.1 Glucose Level 107 mg/dL (70-99) Calcium Level 8.1 mg/dL (8.5-10.1) Medications Current Medications Diltiazem HCl (Cardizem) 10 mg 1X ONCE IVP Last administered on 01/27/17 20: 57; Start 01/27/17 at 21:00; Stop 01/27/17 at 21:01; Status DC Diltiazem HCl 125 mg/Dextrose 125 ml @ 0 mls/hr 1X ONCE IV Last administered on 01/27/17 21:00; Start 01/27/17 at 21:00; Stop 01/27/17 at 21:01; Status DC Digoxin (Lanoxin) 250 mcg 1X ONCE IV Last administered on 01/27/17 22:28; Start 01/27/17 at 22:15; Stop 01/27/17 at 22:16; Status DC Furosemide (Lasix) 40 mg 1X ONCE IVP Last administered on 01/27/17 22:21; Start 01/27/17 at 22:15; Stop 01/27/17 at 22:16; Status DC Heparin Sodium/ Dextrose 500 ml @ 0 mls/hr CONT PRN IV SEE I/O RECORD; Start at 22:00; Stop 01/27/17 at 22:20; Status DC Heparin Sodium (Porcine) (Heparin Sodium) 1,350 unit PRN Q6HRS PRN IV FOR UFH LEVEL LESS THAN 0.2; Start 01/27/17 at 22:00; Stop 01/27/17 at 22:20; Status DC Ondansetron HCl (Zofran) 4 mg PRN Q8HRS PRN IV NAUSEA/VOMITING; Start 01/27/17 at 22:30; Stop 01/28/17 at 22:29; Status DC Sodium Chloride 1,000 ml @ 0 mls/hr Q0M IV ; Start 01/27/17 at 22:30; Stop at 22:29; Status DC Furosemide (Lasix) 40 mg BID92 IVP Last administered on 01/28/17 08:36; Start 01/28/17 at 09:00; Stop 01/28/17 at 11:38; Status DC Diltiazem HCl 125 mg/Dextrose 125 ml @ 0 mls/hr 1X ONCE IV Last administered on 01/28/17 09:31; Start 01/28/17 at 00:15; Stop 01/28/17 at 00:16; Status DC Acetaminophen (Tylenol) 650 mg PRN Q6HRS PRN PO PAIN Last administered on 03:58; Start 01/28/17 at 04:45; Stop 01/29/17 at 08:48; Status DC Aspirin (Ecotrin) 81 mg DAILYWBKFT PO Last administered on 01/29/17 07:56; Start 01/28/17 at 12:00 Metoprolol Tartrate (Lopressor) 12.5 mg Q6HRS PO Last administered on 12:54; Start 01/28/17 at 12:00 Aspirin (Ecotrin) 81 mg DAILYWBKFT PO ; Start 01/29/17 at 08:00; Status UNV Potassium Chloride (Klor-Con) 40 meq 1X ONCE PO Last administered on 13:28; Start 01/28/17 at 13:30; Stop 01/28/17 at 13:31; Status DC Acetaminophen (Tylenol) 650 mg PRN Q6HRS PRN PO FEVER Last administered on 01/29 12:53; Start 01/28/17 at 14:15 Ondansetron HCl (Zofran) 4 mg PRN Q6HRS PRN IV NAUSEA/VOMITING; Start 01/28/17 at 14:15 Morphine Sulfate 2 mg PRN Q2HR PRN IV PAIN; Start 01/28/17 at 14:15 Tramadol HCl (Ultram) 50 mg PRN Q6HRS PRN PO PAIN; Start 01/28/17 at 14:15 Hydralazine HCl (Apresoline) 10 mg PRN Q4HRS PRN IVP ELEVATED BP, SEE COMMENTS ; Start 01/28/17 at 14:15 Docusate Sodium (Colace) 100 mg PRN DAILY PRN PO CONSTIPATION; Start 01/28/17 at 14:15 Gabapentin (Neurontin) 200 mg BID PO Last administered on 01/29/17 07:56; Start 01/28/17 at 14:15 Heparin Sodium (Porcine) (Heparin Sq) 5,000 unit Q8HRS SQ Last administered on 01/29/17 12:58; Start 01/28/17 at 14:15 Digoxin (Lanoxin) 500 mcg 1X STAT PO Last administered on 01/29/17 09:25; Start 01/29/17 at 09:13; Stop 01/29/17 at 09:15; Status DC Active Scripts Active Reported Calcium + Vitamin D Tablet (Calcium Carbonate/Vitamin D3) 1 Each Tablet 1 Each PO HS Multivitamins (Multivitamin) 1 Each Tablet 1 Tab PO HS Tums (Calcium Carbonate) 300 Mg Tab.chew 300 Mg PO PRN PRN Tylenol (Acetaminophen) 325 Mg Tablet 325 Mg PO PRN Q6HRS PRN Lisinopril 20 Mg Tablet 20 Mg PO DAILY Gabapentin 100 Mg Capsule 200 Mg PO BID Norvasc (Amlodipine Besylate) 10 Mg Tablet 10 Mg PO DAILY Vitals/I & O Vital Sign - Last 24 Hours 01/28/17 01/28/17 01/28/17 01/28/17 15:30 17:06 19:31 20:00 Temp 97.9 97.5 97.9 97.5 Pulse 73 73 69 Resp 20 18 B/P (MAP) 162/51 (88) 162/51 119/53 (75) Pulse Ox 94 96 O2 Delivery Room Air Room Air Room Air 01/28/17 01/28/17 01/29/17 01/29/17 23:22 23:22 03:35 06:25 Temp 97.4 97.4 97.4 97.4 Pulse 124 124 118 133 Resp 24 22 B/P (MAP) 118/69 118/69 (85) 110/57 (74) 98/69 Pulse Ox 98 98 O2 Delivery Room Air Room Air 01/29/17 01/29/17 01/29/17 01/29/17 07:00 08:00 09:25 11:00 Temp 97.9 98.1 97.9 98.1 Pulse 112 112 97 Resp 16 16 B/P (MAP) 109/72 (84) 109/72 132/74 (93) Pulse Ox 96 94 O2 Delivery Room Air Room Air Room Air 01/29/17 12:54 Pulse 97 B/P (MAP) 132/74 Intake and Output 01/28/17 01/28/17 01/29/17 15:00 23:00 07:00 Intake Total 300 ml 180 ml 150 ml Output Total 700 ml 150 ml 150 ml Balance -400 ml 30 ml 0 ml DAKOTA ARGUETA MD Jan 29, 2017 13:06
--- NOTE | 2017-01-29 13:58 | PDOC ---
PROGRESS NOTES Subjective Subjective The patient looks and feels better today. Objective Objective Vital Signs Date Time Temp Pulse Resp B/P (MAP) Pulse Ox O2 Delivery O2 Flow Rate FiO2 01/29/17 12:54 97 132/74 01/29/17 11:00 98.1 16 94 Room Air 98.1 Intake and Output 01/29/17 07:00 Intake Total 630 ml Output Total 1000 ml Balance -370 ml Intake Oral 630 ml Output Urine Total 1000 ml # Voids 4 # Bowel Movements 7 Physical Exam Abdomen: Normal bowel sounds Heart: Other (irregularly irregular) General: No acute distress Lungs: Clear to auscultation Assessment Assessment Problems Medical Problems: (1) Atrial fibrillation with RVR Status: Acute (2) CHF (congestive heart failure) Status: Acute 1. AFIB/flutter RVR with aberrancy: Rate was increased this morning and initially treated with digoxin. Looks and feels better at this time. Continue present treatments. 2. Elevated pro NT BNP: due to above. No acute CH 3. HTN: Controlled Coagulation this time. Patient states she had previously been on anticoagulation but was taken off by her family care physician for unclear reasons. Would treat with aspirin. Patient will follow-up with her primary doctor approximately a week post discharge and final decision on long-term anticoagulation can be made at that time. Comment Review of Relevant I have reviewed the following items rica (where applicable) has been applied. Labs Laboratory Tests Test 01/27/17 20:47 01/28/17 04:30 01/28/17 10:29 01/29/17 04:38 White Blood Count 8.7 x10^3/uL (4.0-11.0) 8.6 x10^3/uL (4.0-11.0) 8.0 x10^3/uL (4.0-11.0) Red Blood Count 4.13 x10^6/uL (3.50-5.40) 4.16 x10^6/uL (3.50-5.40) 3.98 x10^6/uL (3.50-5.40) Hemoglobin 12.5 g/dL (12.0-15.5) 12.3 g/dL (12.0-15.5) 12.1 g/dL (12.0-15.5) Hematocrit 37.4 % (36.0-47.0) 38.0 % (36.0-47.0) 35.8 % (36.0-47.0) Mean Corpuscular Volume 91 fL (79-100) 91 fL (79-100) 90 fL (79-100) Mean Corpuscular Hemoglobin 30 pg (25-35) 30 pg (25-35) 30 pg (25-35) Mean Corpuscular Hemoglobin Concent 33 g/dL (31-37) 32 g/dL (31-37) 34 g/dL (31-37) Red Cell Distribution Width 13.9 % (11.5-14.5) 14.0 % (11.5-14.5) 14.2 % (11.5-14.5) Platelet Count 223 x10^3/uL (140-400) 207 x10^3/uL (140-400) 225 x10^3/uL (140-400) Neutrophils (%) (Auto) 75 % (31-73) 63 % (31-73) 46 % (31-73) Lymphocytes (%) (Auto) 15 % (24-48) 25 % (24-48) 42 % (24-48) Monocytes (%) (Auto) 8 % (0-9) 10 % (0-9) 9 % (0-9) Eosinophils (%) (Auto) 1 % (0-3) 2 % (0-3) 3 % (0-3) Basophils (%) (Auto) 1 % (0-3) 1 % (0-3) 1 % (0-3) Neutrophils # (Auto) 6.6 x10^3uL (1.8-7.7) 5.4 x10^3uL (1.8-7.7) 3.7 x10^3uL (1.8-7.7) Lymphocytes # (Auto) 1.3 x10^3/uL (1.0-4.8) 2.1 x10^3/uL (1.0-4.8) 3.4 x10^3/uL (1.0-4.8) Monocytes # (Auto) 0.7 x10^3/uL (0.0-1.1) 0.9 x10^3/uL (0.0-1.1) 0.7 x10^3/uL (0.0-1.1) Eosinophils # (Auto) 0.1 x10^3/uL (0.0-0.7) 0.1 x10^3/uL (0.0-0.7) 0.2 x10^3/uL (0.0-0.7) Basophils # (Auto) 0.1 x10^3/uL (0.0-0.2) 0.1 x10^3/uL (0.0-0.2) 0.1 x10^3/uL (0.0-0.2) Prothrombin Time 12.3 SEC (11.7-14.0) Prothromb Time International Ratio 1.0 (0.8-1.1) Sodium Level 139 mmol/L (136-145) 141 mmol/L (136-145) 142 mmol/L (136-145) Potassium Level 3.8 mmol/L (3.5-5.1) 3.5 mmol/L (3.5-5.1) 4.1 mmol/L (3.5-5.1) Chloride Level 103 mmol/L (98-107) 105 mmol/L (98-107) 107 mmol/L (98-107) Carbon Dioxide Level 24 mmol/L (21-32) 25 mmol/L (21-32) 22 mmol/L (21-32) Anion Gap 12 (6-14) 11 (6-14) 13 (6-14) Blood Urea Nitrogen 29 mg/dL (7-20) 35 mg/dL (7-20) 37 mg/dL (7-20) Creatinine 1.5 mg/dL (0.6-1.0) 1.3 mg/dL (0.6-1.0) 1.3 mg/dL (0.6-1.0) Estimated GFR (Cockcroft-Gault) 33.2 39.1 39.1 BUN/Creatinine Ratio 19 (6-20) Glucose Level 176 mg/dL (70-99) 118 mg/dL (70-99) 107 mg/dL (70-99) Calcium Level 9.2 mg/dL (8.5-10.1) 8.6 mg/dL (8.5-10.1) 8.1 mg/dL (8.5-10.1) Total Bilirubin 0.4 mg/dL (0.2-1.0) Aspartate Amino Transf (AST/SGOT) 35 U/L (15-37) Alanine Aminotransferase (ALT/SGPT) 26 U/L (14-59) Alkaline Phosphatase 56 U/L (46-116) Troponin I Quantitative 0.019 ng/mL (0.000-0.055) 0.321 ng/mL (0.000-0.055) DE-Rhn-Y-Type Natriuretic Peptide 8014 pg/mL (0-449) Total Protein 7.1 g/dL (6.4-8.2) Albumin 3.4 g/dL (3.4-5.0) Albumin/Globulin Ratio 0.9 (1.0-1.7) Magnesium Level 1.9 mg/dL (1.8-2.4) Triglycerides Level 87 mg/dL (0-150) Cholesterol Level 166 mg/dL (0-200) LDL Cholesterol, Calculated 87 mg/dL (0-100) VLDL Cholesterol, Calculated 17 mg/dL (0-40) Non-HDL Cholesterol Calculated 104 mg/dL (0-129) HDL Cholesterol 62 mg/dL (40-60) Cholesterol/HDL Ratio 2.7 Thyroid Stimulating Hormone (TSH) 1.141 uIU/mL (0.358-3.74) Laboratory Tests Test 01/29/17 04:38 White Blood Count 8.0 x10^3/uL (4.0-11.0) Red Blood Count 3.98 x10^6/uL (3.50-5.40) Hemoglobin 12.1 g/dL (12.0-15.5) Hematocrit 35.8 % (36.0-47.0) Mean Corpuscular Volume 90 fL (79-100) Mean Corpuscular Hemoglobin 30 pg (25-35) Mean Corpuscular Hemoglobin Concent 34 g/dL (31-37) Red Cell Distribution Width 14.2 % (11.5-14.5) Platelet Count 225 x10^3/uL (140-400) Neutrophils (%) (Auto) 46 % (31-73) Lymphocytes (%) (Auto) 42 % (24-48) Monocytes (%) (Auto) 9 % (0-9) Eosinophils (%) (Auto) 3 % (0-3) Basophils (%) (Auto) 1 % (0-3) Neutrophils # (Auto) 3.7 x10^3uL (1.8-7.7) Lymphocytes # (Auto) 3.4 x10^3/uL (1.0-4.8) Monocytes # (Auto) 0.7 x10^3/uL (0.0-1.1) Eosinophils # (Auto) 0.2 x10^3/uL (0.0-0.7) Basophils # (Auto) 0.1 x10^3/uL (0.0-0.2) Sodium Level 142 mmol/L (136-145) Potassium Level 4.1 mmol/L (3.5-5.1) Chloride Level 107 mmol/L (98-107) Carbon Dioxide Level 22 mmol/L (21-32) Anion Gap 13 (6-14) Blood Urea Nitrogen 37 mg/dL (7-20) Creatinine 1.3 mg/dL (0.6-1.0) Estimated GFR (Cockcroft-Gault) 39.1 Glucose Level 107 mg/dL (70-99) Calcium Level 8.1 mg/dL (8.5-10.1) Medications Current Medications Diltiazem HCl (Cardizem) 10 mg 1X ONCE IVP Last administered on 01/27/17 20: 57; Start 01/27/17 at 21:00; Stop 01/27/17 at 21:01; Status DC Diltiazem HCl 125 mg/Dextrose 125 ml @ 0 mls/hr 1X ONCE IV Last administered on 01/27/17 21:00; Start 01/27/17 at 21:00; Stop 01/27/17 at 21:01; Status DC Digoxin (Lanoxin) 250 mcg 1X ONCE IV Last administered on 01/27/17 22:28; Start 01/27/17 at 22:15; Stop 01/27/17 at 22:16; Status DC Furosemide (Lasix) 40 mg 1X ONCE IVP Last administered on 01/27/17 22:21; Start 01/27/17 at 22:15; Stop 01/27/17 at 22:16; Status DC Heparin Sodium/ Dextrose 500 ml @ 0 mls/hr CONT PRN IV SEE I/O RECORD; Start at 22:00; Stop 01/27/17 at 22:20; Status DC Heparin Sodium (Porcine) (Heparin Sodium) 1,350 unit PRN Q6HRS PRN IV FOR UFH LEVEL LESS THAN 0.2; Start 01/27/17 at 22:00; Stop 01/27/17 at 22:20; Status DC Ondansetron HCl (Zofran) 4 mg PRN Q8HRS PRN IV NAUSEA/VOMITING; Start 01/27/17 at 22:30; Stop 01/28/17 at 22:29; Status DC Sodium Chloride 1,000 ml @ 0 mls/hr Q0M IV ; Start 01/27/17 at 22:30; Stop at 22:29; Status DC Furosemide (Lasix) 40 mg BID92 IVP Last administered on 01/28/17 08:36; Start 01/28/17 at 09:00; Stop 01/28/17 at 11:38; Status DC Diltiazem HCl 125 mg/Dextrose 125 ml @ 0 mls/hr 1X ONCE IV Last administered on 01/28/17 09:31; Start 01/28/17 at 00:15; Stop 01/28/17 at 00:16; Status DC Acetaminophen (Tylenol) 650 mg PRN Q6HRS PRN PO PAIN Last administered on 03:58; Start 01/28/17 at 04:45; Stop 01/29/17 at 08:48; Status DC Aspirin (Ecotrin) 81 mg DAILYWBKFT PO Last administered on 01/29/17 07:56; Start 01/28/17 at 12:00 Metoprolol Tartrate (Lopressor) 12.5 mg Q6HRS PO Last administered on 12:54; Start 01/28/17 at 12:00 Aspirin (Ecotrin) 81 mg DAILYWBKFT PO ; Start 01/29/17 at 08:00; Status UNV Potassium Chloride (Klor-Con) 40 meq 1X ONCE PO Last administered on 13:28; Start 01/28/17 at 13:30; Stop 01/28/17 at 13:31; Status DC Acetaminophen (Tylenol) 650 mg PRN Q6HRS PRN PO FEVER Last administered on 01/29 12:53; Start 01/28/17 at 14:15 Ondansetron HCl (Zofran) 4 mg PRN Q6HRS PRN IV NAUSEA/VOMITING; Start 01/28/17 at 14:15 Morphine Sulfate 2 mg PRN Q2HR PRN IV PAIN; Start 01/28/17 at 14:15 Tramadol HCl (Ultram) 50 mg PRN Q6HRS PRN PO PAIN; Start 01/28/17 at 14:15 Hydralazine HCl (Apresoline) 10 mg PRN Q4HRS PRN IVP ELEVATED BP, SEE COMMENTS ; Start 01/28/17 at 14:15 Docusate Sodium (Colace) 100 mg PRN DAILY PRN PO CONSTIPATION; Start 01/28/17 at 14:15 Gabapentin (Neurontin) 200 mg BID PO Last administered on 01/29/17 07:56; Start 01/28/17 at 14:15 Heparin Sodium (Porcine) (Heparin Sq) 5,000 unit Q8HRS SQ Last administered on 01/29/17 12:58; Start 01/28/17 at 14:15 Digoxin (Lanoxin) 500 mcg 1X STAT PO Last administered on 01/29/17 09:25; Start 01/29/17 at 09:13; Stop 01/29/17 at 09:15; Status DC Active Scripts Active Reported Calcium + Vitamin D Tablet (Calcium Carbonate/Vitamin D3) 1 Each Tablet 1 Each PO HS Multivitamins (Multivitamin) 1 Each Tablet 1 Tab PO HS Tums (Calcium Carbonate) 300 Mg Tab.chew 300 Mg PO PRN PRN Tylenol (Acetaminophen) 325 Mg Tablet 325 Mg PO PRN Q6HRS PRN Lisinopril 20 Mg Tablet 20 Mg PO DAILY Gabapentin 100 Mg Capsule 200 Mg PO BID Norvasc (Amlodipine Besylate) 10 Mg Tablet 10 Mg PO DAILY Vitals/I & O Vital Sign - Last 24 Hours 01/28/17 01/28/17 01/28/17 01/28/17 15:30 17:06 19:31 20:00 Temp 97.9 97.5 97.9 97.5 Pulse 73 73 69 Resp 20 18 B/P (MAP) 162/51 (88) 162/51 119/53 (75) Pulse Ox 94 96 O2 Delivery Room Air Room Air Room Air 7/1501/28/17 01/29/17 01/29/17 23:22 23:22 03:35 06:25 Temp 97.4 97.4 97.4 97.4 Pulse 124 124 118 133 Resp 24 22 B/P (MAP) 118/69 118/69 (85) 110/57 (74) 98/69 Pulse Ox 98 98 O2 Delivery Room Air Room Air 01/29/17 01/29/17 01/29/17 01/29/17 07:00 08:00 09:25 11:00 Temp 97.9 98.1 97.9 98.1 Pulse 112 112 97 Resp 16 16 B/P (MAP) 109/72 (84) 109/72 132/74 (93) Pulse Ox 96 94 O2 Delivery Room Air Room Air Room Air 01/29/17 12:54 Pulse 97 B/P (MAP) 132/74 Intake and Output 01/28/17 01/28/17 01/29/17 15:00 23:00 07:00 Intake Total 300 ml 180 ml 150 ml Output Total 700 ml 150 ml 150 ml Balance -400 ml 30 ml 0 ml RAFAEL NOLASCO MD Jan 29, 2017 13:57
--- NOTE | 2017-01-29 15:33 | CARD ---
APPROVED REPORT EXAM: Two-dimensional and M-mode echocardiogram with Doppler and color Doppler. Other Information Quality : GoodHR: 111bpm INDICATION Congestive Heart Failure 2D DIMENSIONS Left Atrium(2D)4.8 (1.6-4.0cm)IVSd1.1 (0.7-1.1cm) Aortic Root(2D)3.0 (2.0-3.7cm)LVDd5.8 (3.9-5.9cm) LVOT Diameter2.2 (1.8-2.4cm)PWd1.0 (0.7-1.1cm) LVDs4.3 (2.5-4.0cm)FS (%) 25.9 % SV82.2 mlCO9.5 L/min M-Mode DIMENSIONS Aortic Cusp Exc1.90 (1.5-2.0cm) Aortic Valve AoV Peak Eddie.163.9cm/sAoV VTI26.2cm AO Peak GR.10.8mmHgLVOT VTI 12.75cm AO Mean GR.7mmHgAI P 1/2 [id number] Mitral Valve MV E Pewlkhiu089.2cm/sMV E Peak Gr.6mmHg MV DECEL [id number] MVA (PHT)4.07cm2 TDI Lateral E' P. V9.14cm/sMedial E' P. V6.89cm/s E/Lateral E'13.9E/Medial E'18.5 Pulmonary Valve PV Peak Uykbrdhw22.1cm/s Tricuspid Valve TR P. [id number]/sRAP [id number] TR Peak Gr.41dcLkTLQK89urAd Pulmonary Vein S1 Irvtnbre16.0cm/s LEFT VENTRICLE Technically difficult study. The left ventricle is normal size. There is normal left ventricular wall thickness. The left ventricular systolic function is mildly decreased. LV ejection fraction is estim ated at 40%. No left ventricle thrombus noted on this study. There is no ventricular septal defect vi sualized. There is no left ventricular aneurysm. There is no mass noted in the left ventricle. RIGHT VENTRICLE The right ventricle is normal size. The right ventricular systolic function is normal. ATRIA The left atrium is mildly dilated. The right atrium size is normal. The interatrial septum is intact with no evidence for an atrial septal defect or patent foramen ovale as noted on 2-D or Doppler imagi ng. AORTIC VALVE The aortic valve is normal in structure and function. Doppler and Color Flow revealed mild to moderat e aortic regurgitation. There is no significant aortic valvular stenosis. There is no aortic valvular vegetation. MITRAL VALVE The mitral valve leaflets are thickened. There is no evidence of mitral valve prolapse. There is no m itral valve stenosis. Doppler and Color Flow revealed mild mitral regurgitation. TRICUSPID VALVE The tricuspid valve is normal in structure and function. Doppler and Color Flow revealed mild to mode rate tricuspid regurgitation. There is no tricuspid valve prolapse or vegetation. There is no tricusp id valve stenosis. PULMONIC VALVE The pulmonary valve is normal in structure and function. Doppler and Color Flow revealed mild pulmoni c valvular regurgitation. There is no pulmonic valvular stenosis. GREAT VESSELS The aortic root is normal in size. The ascending aorta is normal in size. The IVC is normal in size a nd collapses >50% with inspiration. PERICARDIAL EFFUSION There is no pleural effusion. There is no evidence of significant pericardial effusion. Critical Notification Critical Value: No <Conclusion> Technically difficult study. The left ventricle is normal size. The left ventricular systolic function is mildly decreased. LV ejection fraction is estimated at 40%. There is no significant aortic valvular stenosis. Doppler and Color Flow revealed mild to moderate aortic regurgitation. Doppler and Color Flow revealed mild mitral regurgitation. Doppler and Color Flow revealed mild to moderate tricuspid regurgitation.
[2017-01-29 16:00] VITALS: BP 132/74
[2017-01-29 19:40] VITALS: BP 117/78
[2017-01-29 23:00] VITALS: BP 111/53
[2017-01-30] MEDS: METOPROLOL TART IMMED RELEASE 25 MG TABLET. PO SCH ×2 (00:31→06:13)
[2017-01-30 03:25] VITALS: BP 117/69
[2017-01-30] MEDS: ACETAMINOPHEN 325 MG TABLET. PO PRN (03:58)
[2017-01-30 05:09] LABS: BASO # 0.1 x10^3/uL (0.0-0.2); BASO % 1 % (0-3); EOS % 3 % (0-3); HEMATOCRIT 39.1 % (36.0-47.0); HEMOGLOBIN 12.7 g/dL (12.0-15.5); LYMPH # 4.4 x10^3/uL (1.0-4.8); LYMPH % 47 % (24-48); MEAN CORPUSCULAR HEMOGLOBIN 30 pg (25-35); MEAN CORPUSCULAR HGB CONC 33 g/dL (31-37); MEAN CORPUSCULAR VOLUME 92 fL (79-100); MONO % 8 % (0-9); NEUT % 40 % (31-73); PLATELET COUNT 227 x10^3/uL (140-400); RED BLOOD COUNT 4.24 x10^6/uL (3.50-5.40); RED CELL DISTRIBUTION WIDTH 14.6 % (11.5-14.5); WHITE BLOOD COUNT 9.4 x10^3/uL (4.0-11.0)
[2017-01-30 05:46] LABS: CALCIUM 7.6 mg/dL (8.5-10.1); CREATININE 1.2 mg/dL (0.6-1.0); GFR 42.9; POTASSIUM 4.2 mmol/L (3.5-5.1)
[2017-01-30] MEDS: HEPARIN PF for SUB-Q USE 5,000 UNIT/0.5 ML VIAL. SQ SCH ×2 (06:17→14:00)
[2017-01-30 07:00] VITALS: BP 115/62
--- NOTE | 2017-01-30 10:44 | PDOC ---
CARDIO Progress Notes Date and Time Date of Service 01/30/2017 Time of Evaluation 1020 Subjective Subjective: No Chest Pain, No shortness of breath, No Palpitations, No Dizziness Vitals Vitals Vital Signs Date Time Temp Pulse Resp B/P (MAP) Pulse Ox O2 Delivery O2 Flow Rate FiO2 01/30/17 08:00 Room Air 01/30/17 07:00 97.3 84 20 115/62 (79) 96 97.3 Weight Weight [ ] Input and Output Intake and Output Intake and Output 01/30/17 07:00 Intake Total 460 ml Output Total 291 ml Balance 169 ml Intake Oral 460 ml Output Urine Total 290 ml Stool Total 1 ml # Voids 1 # Bowel Movements 2 Laboratory Labs Laboratory Tests Test 01/30/17 03:50 White Blood Count 9.4 x10^3/uL (4.0-11.0) Red Blood Count 4.24 x10^6/uL (3.50-5.40) Hemoglobin 12.7 g/dL (12.0-15.5) Hematocrit 39.1 % (36.0-47.0) Mean Corpuscular Volume 92 fL (79-100) Mean Corpuscular Hemoglobin 30 pg (25-35) Mean Corpuscular Hemoglobin Concent 33 g/dL (31-37) Red Cell Distribution Width 14.6 % (11.5-14.5) Platelet Count 227 x10^3/uL (140-400) Neutrophils (%) (Auto) 40 % (31-73) Lymphocytes (%) (Auto) 47 % (24-48) Monocytes (%) (Auto) 8 % (0-9) Eosinophils (%) (Auto) 3 % (0-3) Basophils (%) (Auto) 1 % (0-3) Neutrophils # (Auto) 3.8 x10^3uL (1.8-7.7) Lymphocytes # (Auto) 4.4 x10^3/uL (1.0-4.8) Monocytes # (Auto) 0.8 x10^3/uL (0.0-1.1) Eosinophils # (Auto) 0.3 x10^3/uL (0.0-0.7) Basophils # (Auto) 0.1 x10^3/uL (0.0-0.2) Sodium Level 144 mmol/L (136-145) Potassium Level 4.2 mmol/L (3.5-5.1) Chloride Level 108 mmol/L (98-107) Carbon Dioxide Level 25 mmol/L (21-32) Anion Gap 11 (6-14) Blood Urea Nitrogen 37 mg/dL (7-20) Creatinine 1.2 mg/dL (0.6-1.0) Estimated GFR (Cockcroft-Gault) 42.9 Glucose Level 97 mg/dL (70-99) Calcium Level 7.6 mg/dL (8.5-10.1) Physical Exam HEENT: Neck Supple W Full Motion Chest: Symmetric LUNGS: Clear to Auscultation Heart: S1S2, RRR (SFIB) Abdomen: Soft N/T Extremities: No Edema, No Calf Tenderness Neurology: alert, oriented, follow commands Assessment Assessment 1. AFIB/flutter RVR with aberrancy: persistent 2. HTN: Controlled 3. Cardiomyopathy: EF 40% likely tachy induced. 4. Valvular insufficiency: mild to mod AI/TR/MR Recommendations 1. Pt lives in [place] and going back this weekend. She follows with nutrition worker over there. Pt remains asymptomatic. Discussed with pt and would prefer to have stress test next week with her nutrition worker in [place]. 2. Recent bladder surgery on 01/23/2017 indicating good cardiac reserve. Discussed with son regarding cardiac testing and treatment plan 3. Pt wishes to remain on ASA and no OAC/NOAC. 4. Home with metorpolol tartrate 25 mg po bid and Digoxin 0.125 mg 3x weekly. Hold other home BP meds 5. Instructed to check BP and HR daily and to call our office this week if any questions or symptom changes. 6. Possible DC this afternoon. GUNNAR PANIAGUA FIRE BOSS Jan 30, 2017 10:44
[2017-01-30] MEDS: GABAPENTIN 100 MG CAPSULE. PO SCH (10:45)
[2017-01-30] MEDS: ASPIRIN ENTERIC COATED 81 MG TABLET.DR. PO SCH (10:45)
[2017-01-30 11:00] VITALS: BP 139/79
[2017-01-30] MEDS ORDERED: DIGOXIN 125 MCG TABLET. PO SCH (11:00)
[2017-01-30] MEDS ORDERED: METOPROLOL TART IMMED RELEASE 25 MG TABLET. PO ONE (11:00)
[2017-01-30] MEDS ORDERED: METO25TA4 PO (14:57)
[2017-01-30] MEDS ORDERED: DIGO125T PO (14:57)
[2017-01-30] MEDS ORDERED: ASPI-612 PO (14:57)
--- NOTE | 2017-01-30 14:58 | PDOC3 ---
Discharge Summary [facility] Date of Admission: Jan 27, 2017 Discharge Date: Jan 30, 2017 Admitting Diagnosis rapid afib htn neuropathy ckd3 1 kidney stable CHF at EF 405 Problems: Final Diagnosis CONSULTS card Brief Hospital Course Patient is a 81 year old female with history of paroxysmal atrial fibrillation, sinus and not on any meds on AFIb ,came for palpitation. Pt came from [place] to visit her son. She was found rapid afib in ER, on cardizem drip and STILL afib, HR ok at 80s. She denies chest pain, sob, fever, chills, N/V. no h/o CAD OR CHF. Patient reports recent bladder surgery 4 days ago in [place]. pt was on cardizem drip, but cannot control HR well given low side BP. then metoprolol added. dc home with metroplol, dig 3xw. echo showed EF 40%, mild to moderate MR, TR. DC TIEM 35min General: Alert, Oriented X3, Cooperative, No acute distress Heart: Normal S1, Normal S2, Other (4/6 systolic murmur to NITZA border, irregular) Lungs: Clear Abdomen: Soft, No tenderness Extremities: No cyanosis, No edema Skin: No breakdown Patient History: DIABETES MELLITUS FH: HTN (hypertension) FH: cancer Problems: Disposition home CONDITION AT DISCHARGE: Improved Diet cardiac Scheduled Aspirin (Aspirin Ec), 81 MG PO DAILYWBKFT Digoxin (Digoxin), 125 MCG PO 3X/WEEK Gabapentin (Gabapentin), 200 MG PO BID, (Reported) Metoprolol Tartrate (Metoprolol Tartrate), 25 MG PO BID Multivitamin (Multivitamins), 1 TAB PO HS, (Reported) Scheduled PRN Acetaminophen (Tylenol), 325 MG PO PRN Q6HRS PRN for PAIN, (Reported) Discontinued Medications Amlodipine Besylate (Norvasc), 10 MG PO DAILY, (Reported) Calcium Carbonate (Tums), 300 MG PO PRN PRN for INDIGESTION, (Reported) Calcium Carbonate/Vitamin D3 (Calcium + Vitamin D Tablet), 1 EACH PO HS, ( Reported) Lisinopril (Lisinopril), 20 MG PO DAILY, (Reported) Follow Up card in 2 weeks DAKOTA ARGUETA MD Jan 30, 2017 14:58
[2017-01-30 15:00] VITALS: BP 100/64
[2017-01-30] MEDS ORDERED: METOPROLOL TART IMMED RELEASE 25 MG TABLET. PO SCH (21:00)
== END 2017-01-30 14:25 | disposition home or self-care (01) | DRG 309 ==
LOC: ER 20:16 → 2 NORTH 23:40
PROVIDERS: ADMIT Internal Medicine; ATTEND Internal Medicine
DX: I48.0 Paroxysmal atrial fibrillation (principal); I13.0 Hypertensive heart and chronic kidney disease with heart failure and stage 1 through stage 4 chronic kidney disease, or unspecified chronic kidney disease; I48.92 Unspecified atrial flutter; E11.22 Type 2 diabetes mellitus with diabetic chronic kidney disease; K21.9 Gastro-esophageal reflux disease without esophagitis; N18.3 Chronic kidney disease, stage 3 (moderate); I50.9 Heart failure, unspecified; I42.9 Cardiomyopathy, unspecified; E11.42 Type 2 diabetes mellitus with diabetic polyneuropathy; M19.90 Unspecified osteoarthritis, unspecified site; R32 Unspecified urinary incontinence; Z85.528 Personal history of other malignant neoplasm of kidney; Z82.49 Family history of ischemic heart disease and other diseases of the circulatory system; Z79.01 Long term (current) use of anticoagulants; Z90.5 Acquired absence of kidney; Z79.899 Other long term (current) drug therapy; Z79.1 Long term (current) use of non-steroidal anti-inflammatories (NSAID)
CPT/HCPCS: 36415; 71010; 80048; 80053; 80061; 83735; 83880; 84443; 84484; 85027; 85610; 93005; 93306; 96365; 96366; 96375; 96376; A6539; J1160; J1940; J3490; 99285-25

== ENCOUNTER 2017-03-18 16:32 | Inpatient (IN) | payer MEDICARE ==
[~2017-03-18] VITALS: Ht 154.9 cm; Wt 47.4 kg
[~2017-03-18 16:32] MED LIST: ACET325T9 PO; AMLO10TA4 PO; ASPI-612 PO; CALC-98 PO; CALC300T5 PO; DIGO125T PO; GABA-585 PO; LISI-334 PO; METO25TA4 PO; MULT1TAB52 PO
[2017-03-18 17:00] VITALS: BP 140/56
[2017-03-18 19:00] VITALS: BP 138/65
[2017-03-18] MEDS ORDERED: ISOS30TA4 PO (19:35)
[2017-03-18] MEDS ORDERED: PANT40TA5 PO (19:36)
[2017-03-18] MEDS ORDERED: LOPE2CAP88 PO (19:42)
[2017-03-18] MEDS ORDERED: AMLO10TA2 PO (19:42)
[2017-03-18] MEDS ORDERED: CLON0.5T3 PO (19:42)
[2017-03-18] MEDS ORDERED: METO25TA4 PO (19:42)
[2017-03-18] MEDS ORDERED: DEXTROSE 50% 25 GM / 50ML DISP.SYRIN. IV PRN (21:45)
[2017-03-18 23:00] VITALS: BP 126/52
[2017-03-19] MEDS ORDERED: ACETAMINOPHEN 325 MG TABLET. PO PRN ×2 (01:00→12:45)
[2017-03-19] MEDS ORDERED: LOPERAMIDE 2 MG CAPSULE PO PRN (01:00)
[2017-03-19 03:00] VITALS: BP 111/60
[2017-03-19 06:07] LABS: BASO # 0.1 x10^3/uL (0.0-0.2); BASO % 1 % (0-3); EOS % 4 % (0-3); HEMATOCRIT 34.4 % (36.0-47.0); HEMOGLOBIN 11.6 g/dL (12.0-15.5); LYMPH % 29 % (24-48); MEAN CORPUSCULAR HEMOGLOBIN 30 pg (25-35); MEAN CORPUSCULAR HGB CONC 34 g/dL (31-37); MEAN CORPUSCULAR VOLUME 90 fL (79-100); MONO % 10 % (0-9); NEUT % 57 % (31-73); PLATELET COUNT 269 x10^3/uL (140-400); RED BLOOD COUNT 3.83 x10^6/uL (3.50-5.40); RED CELL DISTRIBUTION WIDTH 14.6 % (11.5-14.5); WHITE BLOOD COUNT 6.9 x10^3/uL (4.0-11.0)
[2017-03-19] MEDS ORDERED: ASPIRIN ENTERIC COATED 81 MG TABLET.DR. PO SCH (08:00)
[2017-03-19] MEDS: clonazePAM 0.5 MG TABLET PO SCH (08:47)
[2017-03-19] MEDS: GABAPENTIN 100 MG CAPSULE. PO SCH ×3 (08:47→21:03)
[2017-03-19] MEDS: PANTOPRAZOLE 40 MG TABLET.DR. PO SCH (08:47)
[2017-03-19] MEDS: METOPROLOL TART IMMED RELEASE 25 MG TABLET. PO SCH (09:59)
[2017-03-19] MEDS: amLODIPine BESYLATE 10 MG TABLET PO SCH (09:59)
[2017-03-19] MEDS: ISOSORBIDE MONONITRATE ER 30 MG TAB.ER.24H PO SCH (10:00)
[2017-03-19 11:00] VITALS: BP 132/48
--- NOTE | 2017-03-19 12:34 | PDOC2 ---
CONSULT Date of Consult Date of Consult DATE: 03/19/17 TIME: 12:33 Reason for Consult Reason for Consult: History of atrial flutter Referring Physician Referring Physician: Dr. Isidro Identification/Chief Complaint Chief Complaint Mental status changes Problems: Source Source: Caregiver, Chart review, Patient History of Present Illness Reason for Visit: 81-year-old female with recent history of CVA/TIA was was recently discharged from [facility] after CELI cardioversion for atrial fibrillation. According to her son, she was admitted to [facility] in the interim for TIA and possible intracranial bleeding. It is not entirely clear but it appears that her eliquis was stopped at that time. She was brought by her son since she was apparently difficult to arouse and had slurred speech earlier today. No history of chest pain, orthopnea, palpitations or syncope. Past Medical History Cardiovascular: AFIB, HTN Pulmonary: No pertinent hx CENTRAL NERVOUS SYSTEM: Other GI: GERD Heme/Onc: Cancer Hepatobiliary: No pertinent hx Psych: No pertinent hx Musculoskeletal: Osteoarthritis Infectious disease: No pertinent hx Renal/: Urinary Incontinence Endocrine: No pertinent hx Past Surgical History Past Surgical History: Other Family History Family History: Hypertension Social History ALCOHOL: none Drugs: None Lives: Alone Current Medications Current Medications Current Medications Dextrose (Dextrose 50%-Water Syringe) 12.5 gm PRN Q15MIN PRN IV SEE COMMENTS; Start 03/18/17 at 21:45 Acetaminophen (Tylenol) 325 mg PRN Q6HRS PRN PO MILD PAIN Last administered on 03/19/17 02:55; Start 03/19/17 at 01:00 Amlodipine Besylate (Norvasc) 10 mg DAILY PO Last administered on 03/19/17 09: 59; Start 03/19/17 at 09:00 Aspirin (Ecotrin) 81 mg DAILYWBKFT PO Last administered on 03/19/17 08:47; Start 03/19/17 at 08:00 Clonazepam (KlonoPIN) 0.5 mg DAILY PO Last administered on 03/19/17 08:47; Start 03/19/17 at 09:00 Gabapentin (Neurontin) 100 mg TID PO Last administered on 03/19/17 08:47; Start 03/19/17 at 09:00 Isosorbide Mononitrate (Imdur) 30 mg DAILY PO Last administered on 03/19/17 10: 00; Start 03/19/17 at 09:00 Loperamide HCl (Imodium) 2 mg PRN Q8HRS PRN PO GI SYMPTOMS; Start 03/19/17 at 01 :00 Metoprolol Tartrate (Lopressor) 25 mg DAILY PO Last administered on 03/19/17 09 :59; Start 03/19/17 at 09:00 Pantoprazole Sodium (Protonix) 40 mg DAILYAC PO Last administered on 03/19/17 08:47; Start 03/19/17 at 07:30 Lorazepam (Ativan) 1 mg 1X ONCE IV ; Start 03/19/17 at 09:45; Stop 03/19/17 at 09 :56; Status DC Active Scripts Active Digoxin 125 Mcg Tablet 125 Mcg PO 3X/WEEK 30 Days Aspirin Ec (Aspirin) 81 Mg Tablet.dr 81 Mg PO DAILYWBKFT 30 Days Reported Imodium A-D (Loperamide HCl) 2 Mg Capsule 2 Mg PO Clonazepam 0.5 Mg Tablet 1 Tab PO DAILY Metoprolol Tartrate 25 Mg Tablet 1 Tab PO DAILY Amlodipine Besylate 10 Mg Tablet 10 Mg PO DAILY Pantoprazole Sodium 40 Mg Tablet.dr 1 Tab PO DAILY Isosorbide Mononitrate Er (Isosorbide Mononitrate) 30 Mg Tab.er.24h 1 Tab PO DAILY Multivitamins (Multivitamin) 1 Each Tablet 1 Tab PO HS Tylenol (Acetaminophen) 325 Mg Tablet 325 Mg PO PRN Q6HRS PRN Gabapentin 100 Mg Capsule 100 Mg PO TID Allergies Allergies: Coded Allergies: No Known Drug Allergies (Unverified , 01/27/17) ROS Review of System Full review of systems cannot be obtained due to her mental status changes Physical Exam General: Other (somnolent) HEENT: Atraumatic, PERRLA Lungs: Clear to auscultation Heart: Regular rate Abdomen: Soft, No tenderness Extremities: No edema Skin: No rashes Vitals VITALS Vital Signs Date Time Temp Pulse Resp B/P (MAP) Pulse Ox O2 Delivery O2 Flow Rate FiO2 03/19/17 11:00 97.5 55 14 132/48 (76) 98 Room Air 97.5 Labs Labs Laboratory Tests Test 03/19/17 04:00 03/19/17 11:58 White Blood Count 6.9 x10^3/uL (4.0-11.0) Red Blood Count 3.83 x10^6/uL (3.50-5.40) Hemoglobin 11.6 g/dL (12.0-15.5) Hematocrit 34.4 % (36.0-47.0) Mean Corpuscular Volume 90 fL (79-100) Mean Corpuscular Hemoglobin 30 pg (25-35) Mean Corpuscular Hemoglobin Concent 34 g/dL (31-37) Red Cell Distribution Width 14.6 % (11.5-14.5) Platelet Count 269 x10^3/uL (140-400) Neutrophils (%) (Auto) 57 % (31-73) Lymphocytes (%) (Auto) 29 % (24-48) Monocytes (%) (Auto) 10 % (0-9) Eosinophils (%) (Auto) 4 % (0-3) Basophils (%) (Auto) 1 % (0-3) Neutrophils # (Auto) 3.9 x10^3uL (1.8-7.7) Lymphocytes # (Auto) 2.0 x10^3/uL (1.0-4.8) Monocytes # (Auto) 0.7 x10^3/uL (0.0-1.1) Eosinophils # (Auto) 0.2 x10^3/uL (0.0-0.7) Basophils # (Auto) 0.1 x10^3/uL (0.0-0.2) Glucose (Fingerstick) 106 mg/dL (70-99) Laboratory Tests Test 03/19/17 04:00 03/19/17 11:58 White Blood Count 6.9 x10^3/uL (4.0-11.0) Red Blood Count 3.83 x10^6/uL (3.50-5.40) Hemoglobin 11.6 g/dL (12.0-15.5) Hematocrit 34.4 % (36.0-47.0) Mean Corpuscular Volume 90 fL (79-100) Mean Corpuscular Hemoglobin 30 pg (25-35) Mean Corpuscular Hemoglobin Concent 34 g/dL (31-37) Red Cell Distribution Width 14.6 % (11.5-14.5) Platelet Count 269 x10^3/uL (140-400) Neutrophils (%) (Auto) 57 % (31-73) Lymphocytes (%) (Auto) 29 % (24-48) Monocytes (%) (Auto) 10 % (0-9) Eosinophils (%) (Auto) 4 % (0-3) Basophils (%) (Auto) 1 % (0-3) Neutrophils # (Auto) 3.9 x10^3uL (1.8-7.7) Lymphocytes # (Auto) 2.0 x10^3/uL (1.0-4.8) Monocytes # (Auto) 0.7 x10^3/uL (0.0-1.1) Eosinophils # (Auto) 0.2 x10^3/uL (0.0-0.7) Basophils # (Auto) 0.1 x10^3/uL (0.0-0.2) Glucose (Fingerstick) 106 mg/dL (70-99) Assessment/Plan Assessment/Plan 1. Paroxysmal atrial fibrillation s/p recent CELI guided cardioversion. She is presently in sinus rhythm. Telemetry showed PVCs without any significant arrhythmias. Patient would benefit from eliquis for stroke prophylaxis but probably not a good candidate due to fall risk and recent ?? History of intracranial bleed. We will obtain records from [facility]. 2. Mental status changes/recent CVA: Neurology team consulted. MRI brain pending. Check digoxin level. 3. Nonischemic cardiomyopathy with EF 25-30%: Clinically well compensated. Continue current medical regimen. 4. Hypertension: Well-controlled Thank you for your consultation VANIA ZACARIAS MD Mar 19, 2017 12:34
[2017-03-19] MEDS ORDERED: traMADol 50 MG TABLET PO PRN (12:45)
[2017-03-19] MEDS ORDERED: ONDANSETRON PF 4 MG/2 ML VIAL. IV PRN (12:45)
[2017-03-19] MEDS ORDERED: hydrALAZINE 20 MG/ML VIAL. IVP PRN (12:45)
[2017-03-19] MEDS ORDERED: DOCUSATE SODIUM 100 MG CAPSULE. PO PRN (12:45)
[2017-03-19] MEDS ORDERED: MORPHINE SULFATE 2 MG/ML DISP.SYRIN. IV PRN (12:45)
--- NOTE | 2017-03-19 14:21 | PDOC2 ---
NEUROLOGY CONSULT Date of Admission Date of Admission DATE: 03/19/17 TIME: 14:03 Reason for Consult Reason for Consult: Mental status changes for 4 days before admission. Lethargy. x 4 days. Metabolic encephalopathy. Large right WAXER infarct conformed on 02/03/17, onset time unknown, not a candidate for TPA. Left side hemiplegia. AFib, s/p cardiac conversion. CHF, EF 20-25%. Aortic aneurysm. Cardiomegaly. Thyroid nodule, incidental findings. SOB Hearing loss. RECOMMENDATIONS/PLAN: Eliquis 2.5 mg bid, her son stated it was discontinued after hospital discharge due to ICH, but we do not have that information. Increase ASA to 325 mg daily, if not take PO, 300 mg rectal. HCT w/o contrast now. Brain MRI w/o contrast in waiting. Hospital team or PCP to evaluate thyroid nodule. Discussed with her son and [id number] in all detail at bedside on 03/19/17. Carotid A US + Doppler on 02/03/17: No high grade stenosis. Echo on 02/02/17: EF 20-25%. HISTORY OF THE PRESENT ILLNESS: 81-Y-old female patient with Hx of AFib, SOB, and other symptoms and was admitted into [facility] on 02/01/17 and she was then found to have a large right WAXER stroke and she was treated with Eliquis and ASA. She received Rehab and eventually went to home. She has been having mental status changes as overly sleepiness, lethargy, decreased response, and increased left side weakness for about 4 days to be brought to [facility]. Her son stated she had CVA symptoms and was seen at OSH and was thought to have a new TIA. Her son aid she did not take Eliquis only baby ASA since discharge home from [facility] on 02/04/17 due to ICH, but we do not have such information so far. PAST MEDICAL HISTORY: Please see above. PAST SURGERY HISTORY: Cardiac conversion and CELI on 02/03/16. ALLERGY: Reviewed. MEDICATIONS: Refer to [facility] FAMILY HISTORY: Non contributory. SOCIAL HISTORY: Denies current smoking, drinking, and illicit drug use. REVIEW OF SYSTEMS: Constitutional: No malnutrition, weight loss, cachexia. Head: No traumatic brain or head injury. Skin: No edema, or rash. Ear: No infection. Eyes: No vision loss or color blindness. Nose: No bleeding or purulent discharges. Hearing: Hearing decrease. Neck: No injury. Breast: No history of cancer, masses,or discharges. Cardiac: AFib s/p conversion. Pulmonary: No COPD. GI: No GI ulcer, GI bleeding. Urinary/genital: UTI. Endocrinologic: No cousin face, craniofacial dysmorphism, polydactyly. Skeletomuscular: No muscular atrophy, deformity. Neurological: see HP. Psychiatric: Denies drug use/abuse. Otherwise, not [id number] review of systems. PHYSICAL EXAMINATION: General appearance is in subacute distress. HEENT: Normocephalic and nontraumatic. Eyes, nose, ears, and throat are unremarkable. Neck is supple. No lymphadenopathy. No bruits are heard over the carotid artery. No crepitus. Cardiovascular: S1, S2, regular rate and rhythm. Pulmonary: Clear to auscultation bilaterally. Abdomen: Bowel sounds are positive. Extremities: No rash, lesions, or edema. No restriction of range of motion NEUROLOGICAL EXAMINATION: Lethargy. Not oriented to time, place and person. PERRL. EOMI not elicited. CN: no focal findings. Muscle tone: Left side fluctuated. Muscle strength: movements observed to stimuli in right side. Left side hemiplegia. DTR: 1-2 Plantar reflex: Neutral response bilaterally Gait: Unable to walk. Sensory exam: minimal response to stimuli. Not able to access cerebellar signs due to decreased menta status. F-T-N test not performed due to decreased mentation.. Current Medications Current Medications Current Medications Dextrose (Dextrose 50%-Water Syringe) 12.5 gm PRN Q15MIN PRN IV SEE COMMENTS; Start 03/18/17 at 21:45 Acetaminophen (Tylenol) 325 mg PRN Q6HRS PRN PO MILD PAIN Last administered on 03/19/17 02:55; Start 03/19/17 at 01:00; Stop 03/19/17 at 12:36; Status DC Amlodipine Besylate (Norvasc) 10 mg DAILY PO Last administered on 03/19/17 09: 59; Start 03/19/17 at 09:00 Aspirin (Ecotrin) 81 mg DAILYWBKFT PO Last administered on 03/19/17 08:47; Start 03/19/17 at 08:00 Clonazepam (KlonoPIN) 0.5 mg DAILY PO Last administered on 03/19/17 08:47; Start 03/19/17 at 09:00 Gabapentin (Neurontin) 100 mg TID PO Last administered on 03/19/17 08:47; Start 03/19/17 at 09:00 Isosorbide Mononitrate (Imdur) 30 mg DAILY PO Last administered on 03/19/17 10: 00; Start 03/19/17 at 09:00 Loperamide HCl (Imodium) 2 mg PRN Q8HRS PRN PO GI SYMPTOMS; Start 03/19/17 at 01 :00 Metoprolol Tartrate (Lopressor) 25 mg DAILY PO Last administered on 03/19/17 09 :59; Start 03/19/17 at 09:00 Pantoprazole Sodium (Protonix) 40 mg DAILYAC PO Last administered on 03/19/17 08:47; Start 03/19/17 at 07:30 Lorazepam (Ativan) 1 mg 1X ONCE IV ; Start 03/19/17 at 09:45; Stop 03/19/17 at 09 :56; Status DC Acetaminophen (Tylenol) 650 mg PRN Q6HRS PRN PO FEVER; Start 03/19/17 at 12:45 Ondansetron HCl (Zofran) 4 mg PRN Q6HRS PRN IV NAUSEA/VOMITING; Start 03/19/17 at 12:45 Morphine Sulfate 2 mg PRN Q2HR PRN IV PAIN; Start 03/19/17 at 12:45 Tramadol HCl (Ultram) 50 mg PRN Q6HRS PRN PO PAIN; Start 03/19/17 at 12:45 Hydralazine HCl (Apresoline) 10 mg PRN Q4HRS PRN IVP ELEVATED BP, SEE COMMENTS ; Start 03/19/17 at 12:45 Docusate Sodium (Colace) 100 mg PRN DAILY PRN PO CONSTIPATION; Start 03/19/17 at 12:45 Active Scripts Active Digoxin 125 Mcg Tablet 125 Mcg PO 3X/WEEK 30 Days Aspirin Ec (Aspirin) 81 Mg Tablet.dr 81 Mg PO DAILYWBKFT 30 Days Reported Imodium A-D (Loperamide HCl) 2 Mg Capsule 2 Mg PO Clonazepam 0.5 Mg Tablet 1 Tab PO DAILY Metoprolol Tartrate 25 Mg Tablet 1 Tab PO DAILY Amlodipine Besylate 10 Mg Tablet 10 Mg PO DAILY Pantoprazole Sodium 40 Mg Tablet.dr 1 Tab PO DAILY Isosorbide Mononitrate Er (Isosorbide Mononitrate) 30 Mg Tab.er.24h 1 Tab PO DAILY Multivitamins (Multivitamin) 1 Each Tablet 1 Tab PO HS Tylenol (Acetaminophen) 325 Mg Tablet 325 Mg PO PRN Q6HRS PRN Gabapentin 100 Mg Capsule 100 Mg PO TID Allergies Allergies: Coded Allergies: No Known Drug Allergies (Unverified , 01/27/17) Vitals VITALS Vital Signs Date Time Temp Pulse Resp B/P (MAP) Pulse Ox O2 Delivery O2 Flow Rate FiO2 03/19/17 11:00 97.5 55 14 132/48 (76) 98 Room Air 97.5 Labs Labs Laboratory Tests Test 03/19/17 04:00 03/19/17 11:58 White Blood Count 6.9 x10^3/uL (4.0-11.0) Red Blood Count 3.83 x10^6/uL (3.50-5.40) Hemoglobin 11.6 g/dL (12.0-15.5) Hematocrit 34.4 % (36.0-47.0) Mean Corpuscular Volume 90 fL (79-100) Mean Corpuscular Hemoglobin 30 pg (25-35) Mean Corpuscular Hemoglobin Concent 34 g/dL (31-37) Red Cell Distribution Width 14.6 % (11.5-14.5) Platelet Count 269 x10^3/uL (140-400) Neutrophils (%) (Auto) 57 % (31-73) Lymphocytes (%) (Auto) 29 % (24-48) Monocytes (%) (Auto) 10 % (0-9) Eosinophils (%) (Auto) 4 % (0-3) Basophils (%) (Auto) 1 % (0-3) Neutrophils # (Auto) 3.9 x10^3uL (1.8-7.7) Lymphocytes # (Auto) 2.0 x10^3/uL (1.0-4.8) Monocytes # (Auto) 0.7 x10^3/uL (0.0-1.1) Eosinophils # (Auto) 0.2 x10^3/uL (0.0-0.7) Basophils # (Auto) 0.1 x10^3/uL (0.0-0.2) Glucose (Fingerstick) 106 mg/dL (70-99) Laboratory Tests Test 03/19/17 04:00 03/19/17 11:58 White Blood Count 6.9 x10^3/uL (4.0-11.0) Red Blood Count 3.83 x10^6/uL (3.50-5.40) Hemoglobin 11.6 g/dL (12.0-15.5) Hematocrit 34.4 % (36.0-47.0) Mean Corpuscular Volume 90 fL (79-100) Mean Corpuscular Hemoglobin 30 pg (25-35) Mean Corpuscular Hemoglobin Concent 34 g/dL (31-37) Red Cell Distribution Width 14.6 % (11.5-14.5) Platelet Count 269 x10^3/uL (140-400) Neutrophils (%) (Auto) 57 % (31-73) Lymphocytes (%) (Auto) 29 % (24-48) Monocytes (%) (Auto) 10 % (0-9) Eosinophils (%) (Auto) 4 % (0-3) Basophils (%) (Auto) 1 % (0-3) Neutrophils # (Auto) 3.9 x10^3uL (1.8-7.7) Lymphocytes # (Auto) 2.0 x10^3/uL (1.0-4.8) Monocytes # (Auto) 0.7 x10^3/uL (0.0-1.1) Eosinophils # (Auto) 0.2 x10^3/uL (0.0-0.7) Basophils # (Auto) 0.1 x10^3/uL (0.0-0.2) Glucose (Fingerstick) 106 mg/dL (70-99) DAVID PABLO MD Mar 19, 2017 14:21
[2017-03-19 15:00] VITALS: BP 138/60
[2017-03-19] MEDS: ENOXAPARIN 30 MG/0.3 ML SYRINGE. SQ SCH (15:00)
--- NOTE | 2017-03-19 15:07 | PDOC1 ---
History and Physical Date of Admission Date of Admission 03/18/17 Identification/Chief Complaint Chief Complaint AMS Problems: Source Source: Caregiver, Chart review History of Present Illness History of Present Illness 81yo F, h/o CVA, afib, chf, was sent from [facility] for AMS. as per her son, pt got CVA recently, gertrude was dced for ? intracranial bleeding?. She was dced to snf, then home. in the past 2-3 weeks, she was confused some times x3 time at least, also had TIA. pT LIVEes with family at home now, was noticed not acting right, baseline mild dementia. Today, when i talked to her, hard to arouse, said she was tiered, follow some commands by squeezing my hands. eats ok, no fever, chills, sob ,chest pain. able to walk with a walker. left side mild-moderate weakness post CVA Past Medical History Cardiovascular: AFIB, HTN Pulmonary: No pertinent hx CENTRAL NERVOUS SYSTEM: Other GI: GERD Heme/Onc: Cancer Hepatobiliary: No pertinent hx Psych: No pertinent hx Infectious disease: No pertinent hx Renal/: Urinary Incontinence Endocrine: No pertinent hx Past Surgical History Past Surgical History: Other Family History Family History: Hypertension Social History Smoke: No ALCOHOL: none Drugs: None Current Medications Current Medications Current Medications Medications (Trade) Dose Ordered Sig/Ruddy Start Time Stop Time Status Last Admin Dose Admin Acetaminophen (Tylenol) 650 mg PRN Q6HRS PRN 03/19/17 12:45 03/19/17 14:51 650 MG Amlodipine Besylate (Norvasc) 10 mg DAILY 03/19/17 09:00 03/19/17 09:59 10 MG Aspirin (Ecotrin) 325 mg DAILYWBKFT 03/20/17 08:00 Clonazepam (KlonoPIN) 0.5 mg DAILY 03/19/17 09:00 03/19/17 08:47 0.5 MG Dextrose (Dextrose 50%-Water Syringe) 12.5 gm PRN Q15MIN PRN 03/18/17 21:45 Docusate Sodium (Colace) 100 mg PRN DAILY PRN 03/19/17 12:45 Gabapentin (Neurontin) 100 mg TID 03/19/17 09:00 03/19/17 14:51 100 MG Hydralazine HCl (Apresoline) 10 mg PRN Q4HRS PRN 03/19/17 12:45 Isosorbide Mononitrate (Imdur) 30 mg DAILY 03/19/17 09:00 03/19/17 10:00 30 MG Loperamide HCl (Imodium) 2 mg PRN Q8HRS PRN 03/19/17 01:00 Lorazepam (Ativan) 1 mg 1X ONCE 03/19/17 09:45 03/19/17 09:56 DC Metoprolol Tartrate (Lopressor) 25 mg DAILY 03/19/17 09:00 03/19/17 09:59 25 MG Morphine Sulfate 2 mg PRN Q2HR PRN 03/19/17 12:45 Ondansetron HCl (Zofran) 4 mg PRN Q6HRS PRN 03/19/17 12:45 Pantoprazole Sodium (Protonix) 40 mg DAILYAC 03/19/17 07:30 03/19/17 08:47 40 MG Tramadol HCl (Ultram) 50 mg PRN Q6HRS PRN 03/19/17 12:45 Allergies Allergies Allergies Coded Allergies Type Severity Reaction Last Updated Verified No Known Drug Allergies 01/27/17 No ROS Review of System CONSTITUTIONAL: No fever or chills EYES: No recent changes SKIN: No rash or itching CARDIOVASCULAR: No chest pain, syncope, palpitations, or edema RESPIRATORY: No SOB or cough GASTROINTESTINAL: No nausea, vomiting or abdominal pain NEUROLOGICAL: No headaches or weakness ENDOCRINE: No cold or heat intolerance GENITOURINARY: No urgency or frequency of urination MUSCULOSKELETAL: No back pain or joint pain LYMPHATICS: No enlarged lymph nodes PSYCHIATRIC: No anxiety or depression Physical Exam Physical Exam GEN.: No apparent distress. barely arousable HEENT: Head is normocephalic, atraumatic NECK: Supple. LUNGS: Clear to auscultation. HEART: RRR, S1, S2 present. Peripheral pulses intact ABDOMEN: Soft, nontender. Positive bowel sounds. EXTREMITIES: Without any cyanosis. NEUROLOGIC: Normal speech, normal tone PSYCHIATRIC: Normal affect, normal mood. SKIN: No ulcerations Vitals Vitals Vital Signs Date Time Temp Pulse Resp B/P (MAP) Pulse Ox O2 Delivery O2 Flow Rate FiO2 03/19/17 11:00 97.5 55 14 132/48 (76) 98 Room Air 97.5 Labs Labs Laboratory Tests Test 03/19/17 04:00 03/19/17 11:58 White Blood Count 6.9 x10^3/uL (4.0-11.0) Red Blood Count 3.83 x10^6/uL (3.50-5.40) Hemoglobin 11.6 g/dL (12.0-15.5) Hematocrit 34.4 % (36.0-47.0) Mean Corpuscular Volume 90 fL (79-100) Mean Corpuscular Hemoglobin 30 pg (25-35) Mean Corpuscular Hemoglobin Concent 34 g/dL (31-37) Red Cell Distribution Width 14.6 % (11.5-14.5) Platelet Count 269 x10^3/uL (140-400) Neutrophils (%) (Auto) 57 % (31-73) Lymphocytes (%) (Auto) 29 % (24-48) Monocytes (%) (Auto) 10 % (0-9) Eosinophils (%) (Auto) 4 % (0-3) Basophils (%) (Auto) 1 % (0-3) Neutrophils # (Auto) 3.9 x10^3uL (1.8-7.7) Lymphocytes # (Auto) 2.0 x10^3/uL (1.0-4.8) Monocytes # (Auto) 0.7 x10^3/uL (0.0-1.1) Eosinophils # (Auto) 0.2 x10^3/uL (0.0-0.7) Basophils # (Auto) 0.1 x10^3/uL (0.0-0.2) Glucose (Fingerstick) 106 mg/dL (70-99) Laboratory Tests Test 03/19/17 04:00 03/19/17 11:58 White Blood Count 6.9 x10^3/uL (4.0-11.0) Red Blood Count 3.83 x10^6/uL (3.50-5.40) Hemoglobin 11.6 g/dL (12.0-15.5) Hematocrit 34.4 % (36.0-47.0) Mean Corpuscular Volume 90 fL (79-100) Mean Corpuscular Hemoglobin 30 pg (25-35) Mean Corpuscular Hemoglobin Concent 34 g/dL (31-37) Red Cell Distribution Width 14.6 % (11.5-14.5) Platelet Count 269 x10^3/uL (140-400) Neutrophils (%) (Auto) 57 % (31-73) Lymphocytes (%) (Auto) 29 % (24-48) Monocytes (%) (Auto) 10 % (0-9) Eosinophils (%) (Auto) 4 % (0-3) Basophils (%) (Auto) 1 % (0-3) Neutrophils # (Auto) 3.9 x10^3uL (1.8-7.7) Lymphocytes # (Auto) 2.0 x10^3/uL (1.0-4.8) Monocytes # (Auto) 0.7 x10^3/uL (0.0-1.1) Eosinophils # (Auto) 0.2 x10^3/uL (0.0-0.7) Basophils # (Auto) 0.1 x10^3/uL (0.0-0.2) Glucose (Fingerstick) 106 mg/dL (70-99) VTE Prophylaxis Ordered VTE Prophylaxis Devices: Yes VTE Pharmacological Prophylaxi: Yes Assessment/Plan Assessment/Plan AMS, 4days, 2/2 stroke or dementia fluctuate? recent Large right PURCHASER infarct conformed on 02/03/17, onset time unknown, not a candidate for TPA. stable chronic systolic CHF EF 405 metabolic encephalopathy? pafib , not on AC htn aortic aneurysm hearing loss generalized weakness plan: fu with card, neuro brain MRi pending cont home meds on ASA 325mg daily check vitb12 ptot dvt ppx SW for snf DAKOTA ARGUETA MD Mar 19, 2017 15:07
--- NOTE | 2017-03-19 15:49 | RAD ---
Examination: MRI brain without contrast History: History of fall, recent history of stroke Comparison: 02/03/2017 Technique: Multiplanar, multisequence MR imaging of the brain was performed without contrast Findings: There is no evidence of midline shift. There is a small focus of possible restricted diffusion identified in the inferior aspect of the right thalamus posteriorly probably acute ischemic infarct measuring 1.2 cm. In the region of prior ischemia, in the right posterior cerebral artery distribution of the temporal and occipital lobe demonstrates a low susceptibility artifact on gradient sequences suggesting possible blood products within the prior stroke likely hemorrhagic transformation of the prior stroke. Another small focus of increased signal on the DWI images identified in the medial aspect of the right posterior temporal lobe without corresponding changes of ADC signal probably secondary to blood product and less likely acute ischemic infarct. The visualized lateral ventricles, third ventricle, fourth ventricle and proper for age moderate bilateral ventricular white matter FLAIR signal likely chronic small vessel ischemic disease. The visualized flow voids in the major intracranial vessels grossly appears unremarkable The visualized paranasal sinuses, mastoid air cells are clear Basal cisterns are uneffaced Age related cerebral cerebral atrophic changes. Impression: 1. A small focus of possible restricted diffusion identified in the inferior aspect of the right thalamus posteriorly probably acute ischemic infarct measuring 1.2 cm. Another small focus of increased signal on the DWI images identified in the medial aspect of the right posterior temporal lobe without corresponding changes of ADC signal probably secondary to blood product and less likely acute ischemic infarct. 2. In the region of prior ischemia, in the right posterior cerebral artery distribution of the temporal and occipital lobe demonstrates susceptibility artifact on gradient sequences suggesting possible blood products within the prior stroke likely hemorrhagic transformation /blood products or hemosiderin staining of the prior stroke. Noncontrast CT may be helpful. Patient was informed at time of dictation.
[2017-03-19 19:10] VITALS: BP 124/47
[2017-03-19 23:10] VITALS: BP 121/50
[2017-03-19 23:17] LABS: BILIRUBIN,URINE NEGATIVE (NEG); GLUCOSE,URINE NEGATIVE (NEG); NITRITE,URINE NEGATIVE (NEG); PH,URINE 6.5; PROTEIN,URINE NEGATIVE (NEG-TRACE); UROBILINOGEN,URINE 0.2 mg/dL (0.2 mg/dL)
[2017-03-19 23:22] LABS: BACTERIA,URINE 0 /HPF (0-FEW); SQUAMOUS EPITHELIAL CELL,UR FEW /LPF; WBC,URINE OCC /HPF (0-4)
[2017-03-20 03:15] VITALS: BP_SYST 115; BP_SYST 144; BP_DIAS 47; BP_DIAS 65
[2017-03-20 06:39] LABS: BASO # 0.1 x10^3/uL (0.0-0.2); BASO % 1 % (0-3); EOS % 3 % (0-3); HEMATOCRIT 35.6 % (36.0-47.0); HEMOGLOBIN 12.1 g/dL (12.0-15.5); LYMPH # 1.9 x10^3/uL (1.0-4.8); LYMPH % 32 % (24-48); MEAN CORPUSCULAR HEMOGLOBIN 31 pg (25-35); MEAN CORPUSCULAR HGB CONC 34 g/dL (31-37); MEAN CORPUSCULAR VOLUME 90 fL (79-100); MONO % 9 % (0-9); NEUT % 55 % (31-73); PLATELET COUNT 279 x10^3/uL (140-400); RED BLOOD COUNT 3.94 x10^6/uL (3.50-5.40); RED CELL DISTRIBUTION WIDTH 15.2 % (11.5-14.5); WHITE BLOOD COUNT 6.1 x10^3/uL (4.0-11.0)
[2017-03-20 06:54] LABS: CALCIUM 9.3 mg/dL (8.5-10.1); CREATININE 1.1 mg/dL (0.6-1.0); GFR 47.4
[2017-03-20 07:15] VITALS: BP 139/59
[2017-03-20] MEDS ORDERED: ASPIRIN ENTERIC COATED 325 MG TABLET.DR. PO SCH (08:00)
[2017-03-20] MEDS: PANTOPRAZOLE 40 MG TABLET.DR. PO SCH (08:34)
[2017-03-20] MEDS: METOPROLOL TART IMMED RELEASE 25 MG TABLET. PO SCH (08:35)
[2017-03-20] MEDS: amLODIPine BESYLATE 10 MG TABLET PO SCH (08:35)
[2017-03-20] MEDS: GABAPENTIN 100 MG CAPSULE. PO SCH ×3 (08:35→19:51)
[2017-03-20] MEDS: ISOSORBIDE MONONITRATE ER 30 MG TAB.ER.24H PO SCH (08:35)
[2017-03-20] MEDS: ASPIRIN CHEWABLE 81 MG TABLET. PO SCH (08:36)
[2017-03-20] MEDS: clonazePAM 0.5 MG TABLET PO SCH (08:36)
[2017-03-20] MEDS: ENOXAPARIN 30 MG/0.3 ML SYRINGE. SQ SCH (08:37)
[2017-03-20 10:44] VITALS: BP 105/48
--- NOTE | 2017-03-20 11:58 | PDOC ---
PROGRESS NOTES Subjective Subjective Confused Objective Objective Vital Signs Date Time Temp Pulse Resp B/P (MAP) Pulse Ox O2 Delivery O2 Flow Rate FiO2 03/20/17 10:44 98.0 50 19 105/48 (67) 92 Room Air 98.0 Intake and Output 03/21/17 07:00 Intake Total 240 ml Balance 240 ml Intake Oral 240 ml # Voids 1 Physical Exam Abdomen: Soft, No tenderness Heart: Regular rate Extremities: No edema General: Other (somnolent) HEENT: Atraumatic, PERRLA Lungs: Clear to auscultation Skin: No rashes Assessment Assessment 1. Paroxysmal atrial fibrillation s/p recent CELI guided cardioversion. She is presently in sinus rhythm. Telemetry showed PVCs without any significant arrhythmias. Patient would benefit from eliquis for stroke prophylaxis but probably not a good candidate due to fall risk and recent ?? History of intracranial bleed. Records from [facility] pending 2. Mental status changes/recent CVA: Neurology team following. 3. Nonischemic cardiomyopathy with EF 25-30%: Clinically well compensated. Continue current medical regimen. 4. Hypertension: Well-controlled Comment Review of Relevant I have reviewed the following items rica (where applicable) has been applied. Labs Laboratory Tests Test 03/19/17 16:20 03/19/17 16:34 03/19/17 17:10 03/19/17 20:59 Urine Collection Type Unknown Urine Color Yellow Urine Clarity Clear Urine pH 6.5 Urine Specific [place] 1.020 Urine Protein Negative mg/dL (NEG-TRACE) Urine Glucose (UA) Negative mg/dL (NEG) Urine Ketones (Stick) Negative mg/dL (NEG) Urine Blood Trace (NEG) Urine Nitrite Negative (NEG) Urine Bilirubin Negative (NEG) Urine Urobilinogen Dipstick 0.2 mg/dL (0.2 mg/dL) Urine Leukocyte Esterase Trace (NEG) Urine RBC 3-5 /HPF (0-2) Urine WBC Occ /HPF (0-4) Urine Squamous Epithelial Cells Few /LPF Urine Bacteria 0 /HPF (0-FEW) Urine Mucus Slight /LPF Glucose (Fingerstick) 114 mg/dL (70-99) 176 mg/dL (70-99) Digoxin Level < 0.2 ng/mL (0.9-2.0) Digoxin Last Dose Date 03/17/17 Digoxin Last Dose Time 0900 Test 03/20/17 03:40 03/20/17 06:10 03/20/17 07:28 White Blood Count 6.1 x10^3/uL (4.0-11.0) Red Blood Count 3.94 x10^6/uL (3.50-5.40) Hemoglobin 12.1 g/dL (12.0-15.5) Hematocrit 35.6 % (36.0-47.0) Mean Corpuscular Volume 90 fL (79-100) Mean Corpuscular Hemoglobin 31 pg (25-35) Mean Corpuscular Hemoglobin Concent 34 g/dL (31-37) Red Cell Distribution Width 15.2 % (11.5-14.5) Platelet Count 279 x10^3/uL (140-400) Neutrophils (%) (Auto) 55 % (31-73) Lymphocytes (%) (Auto) 32 % (24-48) Monocytes (%) (Auto) 9 % (0-9) Eosinophils (%) (Auto) 3 % (0-3) Basophils (%) (Auto) 1 % (0-3) Neutrophils # (Auto) 3.3 x10^3uL (1.8-7.7) Lymphocytes # (Auto) 1.9 x10^3/uL (1.0-4.8) Monocytes # (Auto) 0.5 x10^3/uL (0.0-1.1) Eosinophils # (Auto) 0.2 x10^3/uL (0.0-0.7) Basophils # (Auto) 0.1 x10^3/uL (0.0-0.2) Sodium Level 140 mmol/L (136-145) Potassium Level 4.0 mmol/L (3.5-5.1) Chloride Level 105 mmol/L (98-107) Carbon Dioxide Level 26 mmol/L (21-32) Anion Gap 9 (6-14) Blood Urea Nitrogen 21 mg/dL (7-20) Creatinine 1.1 mg/dL (0.6-1.0) Estimated GFR (Cockcroft-Gault) 47.4 Glucose Level 99 mg/dL (70-99) Calcium Level 9.3 mg/dL (8.5-10.1) Vitamin B12 Level 407 pg/mL (247-911) Glucose (Fingerstick) 101 mg/dL (70-99) Medications Current Medications Acetaminophen (Tylenol) 650 mg PRN Q6HRS PRN PO FEVER Last administered on 14:51; Start 03/19/17 at 12:45 Aspirin (Children'S Aspirin) 162 mg DAILYWBKFT PO Last administered on 08:36; Start 03/20/17 at 08:00 Aspirin (Ecotrin) 325 mg DAILYWBKFT PO ; Start 03/20/17 at 08:00; Stop 03/20/17 at 08:00; Status DC Docusate Sodium (Colace) 100 mg PRN DAILY PRN PO CONSTIPATION; Start 03/19/17 at 12:45 Enoxaparin Sodium (Lovenox 30mg Syringe) 30 mg Q24H SQ ; Start 03/19/17 at 15:00 Hydralazine HCl (Apresoline) 10 mg PRN Q4HRS PRN IVP ELEVATED BP, SEE COMMENTS ; Start 03/19/17 at 12:45 Morphine Sulfate 2 mg PRN Q2HR PRN IV PAIN; Start 03/19/17 at 12:45 Ondansetron HCl (Zofran) 4 mg PRN Q6HRS PRN IV NAUSEA/VOMITING; Start 03/19/17 at 12:45 Tramadol HCl (Ultram) 50 mg PRN Q6HRS PRN PO PAIN; Start 03/19/17 at 12:45 Vitals/I & O Vital Sign - Last 24 Hours 03/19/17 03/19/17 03/19/17 03/19/17 15:00 19:10 20:11 23:10 Temp 97.8 97.4 98.2 97.8 97.4 98.2 Pulse 62 57 64 Resp 14 18 18 B/P (MAP) 138/60 (86) 124/47 (72) 121/50 (73) Pulse Ox 91 96 95 O2 Delivery Room Air Room Air Room Air Room Air 03/20/17 03/20/17 03/20/17 03/20/17 03:15 07:15 08:00 08:35 Temp 97.9 97.7 97.9 97.7 Pulse 60 65 65 Resp 18 19 B/P (MAP) 144/65 (91) 139/59 (85) 139/59 Pulse Ox 97 96 O2 Delivery Room Air Room Air Room Air 03/20/17 03/20/17 03/20/17 08:35 08:35 10:44 Temp 98.0 98.0 Pulse 65 65 50 Resp 19 B/P (MAP) 139/59 139/59 105/48 (67) Pulse Ox 92 O2 Delivery Room Air Intake and Output 03/20/17 03/20/17 03/21/17 15:00 23:00 07:00 Intake Total 240 ml Balance 240 ml VANIA ZACARIAS MD Mar 20, 2017 11:58
--- NOTE | 2017-03-20 12:42 | PDOC ---
PROGRESS NOTES Chief Complaint Chief Complaint AMS, 4days, with hallucination, 2/2 a small new right infarct recent Large right MRI SUPERVISOR ischemic infarct conformed on 02/03/17, onset time unknown , not a candidate for TPA. possible hemarrhagic change as per son but cannot find a records in our systom, could be at [facility] and not on eliquis ever since stable chronic systolic CHF EF 405 metabolic encephalopathy pafib , not on AC htn aortic aneurysm hearing loss generalized weakness plan: fu with card, neuro brain MRi done cont home meds on ASA 162mg daily check vitb12 ptot dvt ppx ON METOprolol, not on dig, HR ok , valencia SW for snf talked to family for 10min, will get PAT consult. MRI showed a possible hemarrhagic change, pt already took ASA, defer to neuro to see if need hold it and head CT. History of Present Illness History of Present Illness ROS: no fever, chills, sob or chest pain personality change overnight and today, talks to herself, with hallucination MRI showed rt a new small acute stroke Vitals Vitals Vital Signs Date Time Temp Pulse Resp B/P (MAP) Pulse Ox O2 Delivery O2 Flow Rate FiO2 03/20/17 10:44 98.0 50 19 105/48 (67) 92 Room Air 98.0 Physical Exam Physical Exam aaox2 to person and place General: Alert, Other (somnolent) Heart: Regular rate, Normal S1, Normal S2 Lungs: Clear Abdomen: Normal bowel sounds, Soft, No tenderness Extremities: No edema Skin: No rashes Labs LABS Laboratory Tests Test 03/19/17 16:20 03/19/17 16:34 03/19/17 17:10 03/19/17 20:59 Urine Collection Type Unknown Urine Color Yellow Urine Clarity Clear Urine pH 6.5 Urine Specific [place] 1.020 Urine Protein Negative mg/dL (NEG-TRACE) Urine Glucose (UA) Negative mg/dL (NEG) Urine Ketones (Stick) Negative mg/dL (NEG) Urine Blood Trace (NEG) Urine Nitrite Negative (NEG) Urine Bilirubin Negative (NEG) Urine Urobilinogen Dipstick 0.2 mg/dL (0.2 mg/dL) Urine Leukocyte Esterase Trace (NEG) Urine RBC 3-5 /HPF (0-2) Urine WBC Occ /HPF (0-4) Urine Squamous Epithelial Cells Few /LPF Urine Bacteria 0 /HPF (0-FEW) Urine Mucus Slight /LPF Glucose (Fingerstick) 114 mg/dL (70-99) 176 mg/dL (70-99) Digoxin Level < 0.2 ng/mL (0.9-2.0) Digoxin Last Dose Date 03/17/17 Digoxin Last Dose Time 0900 Test 03/20/17 03:40 03/20/17 06:10 03/20/17 07:28 White Blood Count 6.1 x10^3/uL (4.0-11.0) Red Blood Count 3.94 x10^6/uL (3.50-5.40) Hemoglobin 12.1 g/dL (12.0-15.5) Hematocrit 35.6 % (36.0-47.0) Mean Corpuscular Volume 90 fL (79-100) Mean Corpuscular Hemoglobin 31 pg (25-35) Mean Corpuscular Hemoglobin Concent 34 g/dL (31-37) Red Cell Distribution Width 15.2 % (11.5-14.5) Platelet Count 279 x10^3/uL (140-400) Neutrophils (%) (Auto) 55 % (31-73) Lymphocytes (%) (Auto) 32 % (24-48) Monocytes (%) (Auto) 9 % (0-9) Eosinophils (%) (Auto) 3 % (0-3) Basophils (%) (Auto) 1 % (0-3) Neutrophils # (Auto) 3.3 x10^3uL (1.8-7.7) Lymphocytes # (Auto) 1.9 x10^3/uL (1.0-4.8) Monocytes # (Auto) 0.5 x10^3/uL (0.0-1.1) Eosinophils # (Auto) 0.2 x10^3/uL (0.0-0.7) Basophils # (Auto) 0.1 x10^3/uL (0.0-0.2) Sodium Level 140 mmol/L (136-145) Potassium Level 4.0 mmol/L (3.5-5.1) Chloride Level 105 mmol/L (98-107) Carbon Dioxide Level 26 mmol/L (21-32) Anion Gap 9 (6-14) Blood Urea Nitrogen 21 mg/dL (7-20) Creatinine 1.1 mg/dL (0.6-1.0) Estimated GFR (Cockcroft-Gault) 47.4 Glucose Level 99 mg/dL (70-99) Calcium Level 9.3 mg/dL (8.5-10.1) Vitamin B12 Level 407 pg/mL (247-911) Glucose (Fingerstick) 101 mg/dL (70-99) Comment Review of Relevant I have reviewed the following items rica (where applicable) has been applied. Labs Laboratory Tests Test 03/19/17 02:40 03/19/17 04:00 03/19/17 11:58 03/19/17 16:20 Nasal Screen MRSA (PCR) Negative (Negative) White Blood Count 6.9 x10^3/uL (4.0-11.0) Red Blood Count 3.83 x10^6/uL (3.50-5.40) Hemoglobin 11.6 g/dL (12.0-15.5) Hematocrit 34.4 % (36.0-47.0) Mean Corpuscular Volume 90 fL (79-100) Mean Corpuscular Hemoglobin 30 pg (25-35) Mean Corpuscular Hemoglobin Concent 34 g/dL (31-37) Red Cell Distribution Width 14.6 % (11.5-14.5) Platelet Count 269 x10^3/uL (140-400) Neutrophils (%) (Auto) 57 % (31-73) Lymphocytes (%) (Auto) 29 % (24-48) Monocytes (%) (Auto) 10 % (0-9) Eosinophils (%) (Auto) 4 % (0-3) Basophils (%) (Auto) 1 % (0-3) Neutrophils # (Auto) 3.9 x10^3uL (1.8-7.7) Lymphocytes # (Auto) 2.0 x10^3/uL (1.0-4.8) Monocytes # (Auto) 0.7 x10^3/uL (0.0-1.1) Eosinophils # (Auto) 0.2 x10^3/uL (0.0-0.7) Basophils # (Auto) 0.1 x10^3/uL (0.0-0.2) Glucose (Fingerstick) 106 mg/dL (70-99) Urine Collection Type Unknown Urine Color Yellow Urine Clarity Clear Urine pH 6.5 Urine Specific [place] 1.020 Urine Protein Negative mg/dL (NEG-TRACE) Urine Glucose (UA) Negative mg/dL (NEG) Urine Ketones (Stick) Negative mg/dL (NEG) Urine Blood Trace (NEG) Urine Nitrite Negative (NEG) Urine Bilirubin Negative (NEG) Urine Urobilinogen Dipstick 0.2 mg/dL (0.2 mg/dL) Urine Leukocyte Esterase Trace (NEG) Urine RBC 3-5 /HPF (0-2) Urine WBC Occ /HPF (0-4) Urine Squamous Epithelial Cells Few /LPF Urine Bacteria 0 /HPF (0-FEW) Urine Mucus Slight /LPF Test 03/19/17 16:34 03/19/17 17:10 03/19/17 20:59 03/20/17 03:40 Glucose (Fingerstick) 114 mg/dL (70-99) 176 mg/dL (70-99) Digoxin Level < 0.2 ng/mL (0.9-2.0) Digoxin Last Dose Date 03/17/17 Digoxin Last Dose Time 0900 White Blood Count 6.1 x10^3/uL (4.0-11.0) Red Blood Count 3.94 x10^6/uL (3.50-5.40) Hemoglobin 12.1 g/dL (12.0-15.5) Hematocrit 35.6 % (36.0-47.0) Mean Corpuscular Volume 90 fL (79-100) Mean Corpuscular Hemoglobin 31 pg (25-35) Mean Corpuscular Hemoglobin Concent 34 g/dL (31-37) Red Cell Distribution Width 15.2 % (11.5-14.5) Platelet Count 279 x10^3/uL (140-400) Neutrophils (%) (Auto) 55 % (31-73) Lymphocytes (%) (Auto) 32 % (24-48) Monocytes (%) (Auto) 9 % (0-9) Eosinophils (%) (Auto) 3 % (0-3) Basophils (%) (Auto) 1 % (0-3) Neutrophils # (Auto) 3.3 x10^3uL (1.8-7.7) Lymphocytes # (Auto) 1.9 x10^3/uL (1.0-4.8) Monocytes # (Auto) 0.5 x10^3/uL (0.0-1.1) Eosinophils # (Auto) 0.2 x10^3/uL (0.0-0.7) Basophils # (Auto) 0.1 x10^3/uL (0.0-0.2) Sodium Level 140 mmol/L (136-145) Potassium Level 4.0 mmol/L (3.5-5.1) Chloride Level 105 mmol/L (98-107) Carbon Dioxide Level 26 mmol/L (21-32) Anion Gap 9 (6-14) Blood Urea Nitrogen 21 mg/dL (7-20) Creatinine 1.1 mg/dL (0.6-1.0) Estimated GFR (Cockcroft-Gault) 47.4 Glucose Level 99 mg/dL (70-99) Calcium Level 9.3 mg/dL (8.5-10.1) Test 03/20/17 06:10 03/20/17 07:28 Vitamin B12 Level 407 pg/mL (247-911) Glucose (Fingerstick) 101 mg/dL (70-99) Laboratory Tests Test 03/19/17 16:20 03/19/17 16:34 03/19/17 17:10 03/19/17 20:59 Urine Collection Type Unknown Urine Color Yellow Urine Clarity Clear Urine pH 6.5 Urine Specific [place] 1.020 Urine Protein Negative mg/dL (NEG-TRACE) Urine Glucose (UA) Negative mg/dL (NEG) Urine Ketones (Stick) Negative mg/dL (NEG) Urine Blood Trace (NEG) Urine Nitrite Negative (NEG) Urine Bilirubin Negative (NEG) Urine Urobilinogen Dipstick 0.2 mg/dL (0.2 mg/dL) Urine Leukocyte Esterase Trace (NEG) Urine RBC 3-5 /HPF (0-2) Urine WBC Occ /HPF (0-4) Urine Squamous Epithelial Cells Few /LPF Urine Bacteria 0 /HPF (0-FEW) Urine Mucus Slight /LPF Glucose (Fingerstick) 114 mg/dL (70-99) 176 mg/dL (70-99) Digoxin Level < 0.2 ng/mL (0.9-2.0) Digoxin Last Dose Date 03/17/17 Digoxin Last Dose Time 0900 Test 03/20/17 03:40 03/20/17 06:10 03/20/17 07:28 White Blood Count 6.1 x10^3/uL (4.0-11.0) Red Blood Count 3.94 x10^6/uL (3.50-5.40) Hemoglobin 12.1 g/dL (12.0-15.5) Hematocrit 35.6 % (36.0-47.0) Mean Corpuscular Volume 90 fL (79-100) Mean Corpuscular Hemoglobin 31 pg (25-35) Mean Corpuscular Hemoglobin Concent 34 g/dL (31-37) Red Cell Distribution Width 15.2 % (11.5-14.5) Platelet Count 279 x10^3/uL (140-400) Neutrophils (%) (Auto) 55 % (31-73) Lymphocytes (%) (Auto) 32 % (24-48) Monocytes (%) (Auto) 9 % (0-9) Eosinophils (%) (Auto) 3 % (0-3) Basophils (%) (Auto) 1 % (0-3) Neutrophils # (Auto) 3.3 x10^3uL (1.8-7.7) Lymphocytes # (Auto) 1.9 x10^3/uL (1.0-4.8) Monocytes # (Auto) 0.5 x10^3/uL (0.0-1.1) Eosinophils # (Auto) 0.2 x10^3/uL (0.0-0.7) Basophils # (Auto) 0.1 x10^3/uL (0.0-0.2) Sodium Level 140 mmol/L (136-145) Potassium Level 4.0 mmol/L (3.5-5.1) Chloride Level 105 mmol/L (98-107) Carbon Dioxide Level 26 mmol/L (21-32) Anion Gap 9 (6-14) Blood Urea Nitrogen 21 mg/dL (7-20) Creatinine 1.1 mg/dL (0.6-1.0) Estimated GFR (Cockcroft-Gault) 47.4 Glucose Level 99 mg/dL (70-99) Calcium Level 9.3 mg/dL (8.5-10.1) Vitamin B12 Level 407 pg/mL (247-911) Glucose (Fingerstick) 101 mg/dL (70-99) Medications Current Medications Dextrose (Dextrose 50%-Water Syringe) 12.5 gm PRN Q15MIN PRN IV SEE COMMENTS; Start 03/18/17 at 21:45 Acetaminophen (Tylenol) 325 mg PRN Q6HRS PRN PO MILD PAIN Last administered on 03/19/17 02:55; Start 03/19/17 at 01:00; Stop 03/19/17 at 12:36; Status DC Amlodipine Besylate (Norvasc) 10 mg DAILY PO Last administered on 03/20/17 08: 35; Start 03/19/17 at 09:00 Aspirin (Ecotrin) 81 mg DAILYWBKFT PO Last administered on 03/19/17 08:47; Start 03/19/17 at 08:00; Stop 03/19/17 at 14:10; Status DC Clonazepam (KlonoPIN) 0.5 mg DAILY PO Last administered on 03/20/17 08:36; Start 03/19/17 at 09:00 Gabapentin (Neurontin) 100 mg TID PO Last administered on 03/20/17 08:35; Start 03/19/17 at 09:00 Isosorbide Mononitrate (Imdur) 30 mg DAILY PO Last administered on 03/20/17 08: 35; Start 03/19/17 at 09:00 Loperamide HCl (Imodium) 2 mg PRN Q8HRS PRN PO GI SYMPTOMS; Start 03/19/17 at 01 :00 Metoprolol Tartrate (Lopressor) 25 mg DAILY PO Last administered on 03/20/17 08 :35; Start 03/19/17 at 09:00 Pantoprazole Sodium (Protonix) 40 mg DAILYAC PO Last administered on 03/20/17 08:34; Start 03/19/17 at 07:30 Lorazepam (Ativan) 1 mg 1X ONCE IV ; Start 03/19/17 at 09:45; Stop 03/19/17 at 09 :56; Status DC Acetaminophen (Tylenol) 650 mg PRN Q6HRS PRN PO FEVER Last administered on 14:51; Start 03/19/17 at 12:45 Ondansetron HCl (Zofran) 4 mg PRN Q6HRS PRN IV NAUSEA/VOMITING; Start 03/19/17 at 12:45 Morphine Sulfate 2 mg PRN Q2HR PRN IV PAIN; Start 03/19/17 at 12:45 Tramadol HCl (Ultram) 50 mg PRN Q6HRS PRN PO PAIN; Start 03/19/17 at 12:45 Hydralazine HCl (Apresoline) 10 mg PRN Q4HRS PRN IVP ELEVATED BP, SEE COMMENTS ; Start 03/19/17 at 12:45 Docusate Sodium (Colace) 100 mg PRN DAILY PRN PO CONSTIPATION; Start 03/19/17 at 12:45 Aspirin (Ecotrin) 325 mg DAILYWBKFT PO ; Start 03/20/17 at 08:00; Stop 03/20/17 at 08:00; Status DC Enoxaparin Sodium (Lovenox 30mg Syringe) 30 mg Q24H SQ ; Start 03/19/17 at 15:00 Aspirin (Children'S Aspirin) 162 mg DAILYWBKFT PO Last administered on t 08:36; Start 03/20/17 at 08:00 Active Scripts Active Digoxin 125 Mcg Tablet 125 Mcg PO 3X/WEEK 30 Days Aspirin Ec (Aspirin) 81 Mg Tablet.dr 81 Mg PO DAILYWBKFT 30 Days Reported Imodium A-D (Loperamide HCl) 2 Mg Capsule 2 Mg PO Clonazepam 0.5 Mg Tablet 1 Tab PO DAILY Metoprolol Tartrate 25 Mg Tablet 1 Tab PO DAILY Amlodipine Besylate 10 Mg Tablet 10 Mg PO DAILY Pantoprazole Sodium 40 Mg Tablet. 1 Tab PO DAILY Isosorbide Mononitrate Er (Isosorbide Mononitrate) 30 Mg Tab.er.24h 1 Tab PO DAILY Multivitamins (Multivitamin) 1 Each Tablet 1 Tab PO HS Tylenol (Acetaminophen) 325 Mg Tablet 325 Mg PO PRN Q6HRS PRN Gabapentin 100 Mg Capsule 100 Mg PO TID Vitals/I & O Vital Sign - Last 24 Hours 03/19/17 03/19/17 03/19/17 03/19/17 15:00 19:10 20:11 23:10 Temp 97.8 97.4 98.2 97.8 97.4 98.2 Pulse 62 57 64 Resp 14 18 18 B/P (MAP) 138/60 (86) 124/47 (72) 121/50 (73) Pulse Ox 91 96 95 O2 Delivery Room Air Room Air Room Air Room Air 03/20/17 03/20/17 03/20/17 03/20/17 03:15 07:15 08:00 08:35 Temp 97.9 97.7 97.9 97.7 Pulse 60 65 65 Resp 18 19 B/P (MAP) 144/65 (91) 139/59 (85) 139/59 Pulse Ox 97 96 O2 Delivery Room Air Room Air Room Air 03/20/17 03/20/17 03/20/17 08:35 08:35 10:44 Temp 98.0 98.0 Pulse 65 65 50 Resp 19 B/P (MAP) 139/59 139/59 105/48 (67) Pulse Ox 92 O2 Delivery Room Air Intake and Output 03/20/17 03/20/17 03/21/17 15:00 23:00 07:00 Intake Total 240 ml Balance 240 ml DAKOTA ARGUETA MD Mar 20, 2017 12:42
[2017-03-20] MEDS ORDERED: LORazepam 0.5 MG TABLET PO PRN (12:45)
[2017-03-20 14:41] VITALS: BP 116/44
--- NOTE | 2017-03-20 15:45 | PDOC ---
PROGRESS NOTES Assessment Assessment Mental status changes for 4 days before admission. Lethargy. x 4 days. Metabolic encephalopathy. Possible subacute 1.2 cm right thalamus infarct this time. Possible old hemorrhagic products as hemorrhage transformation from previous stroke in 01/2017. Large right ASSURANCE ASSISTANT infarct conformed on 02/03/17, onset time unknown, not a candidate for TPA at that time.. Left side hemiplegia. AFib, s/p cardiac conversion. CHF, EF 20-25%. Aortic aneurysm. Cardiomegaly. Ascending thoracic aortic A aneurysm. Thyroid nodule, incidental findings. SOB Hearing loss. RECOMMENDATIONS/PLAN: Decrease ASA to 162 mg daily. She was on 81 mg before admission. Hospital team or PCP to evaluate thyroid nodule. Lab: fasting lipids in a.m. Was not high on 02/03/17. Please consult group social worker for family issues. Discussed with her son and [id number] in all detail at bedside on 03/20/17. Carotid A US + Doppler on 02/03/17: No high grade stenosis. Echo on 02/02/17: EF 20-25%. Brain MRI: See Radiology reports. HISTORY OF THE PRESENT ILLNESS: 81-Y-old female patient with Hx of AFib, SOB, and other symptoms and was admitted into [facility] on 02/01/17 and she was then found to have a large right ASSURANCE ASSISTANT stroke and she was treated with Eliquis and ASA. She received Rehab and eventually went to home. She has been having mental status changes as overly sleepiness, lethargy, decreased response, and increased left side weakness for about 4 days to be brought to [facility]. Her son stated she had CVA symptoms and was seen at OSH and was thought to have a new TIA. Her son said she did not take Eliquis only baby ASA since discharge home from [facility] on 02/04/17 due to ICH. She was seen in [facility] and was said had ICH as well. Imaging reports required for outside hospital. PAST MEDICAL HISTORY: Please see above. PAST SURGERY HISTORY: Cardiac conversion and CELI on 02/03/16. ALLERGY: Reviewed. MEDICATIONS: Refer to [facility] FAMILY HISTORY: Non contributory. SOCIAL HISTORY: Denies current smoking, drinking, and illicit drug use. REVIEW OF SYSTEMS: Constitutional: No malnutrition, weight loss, cachexia. Head: No traumatic brain or head injury. Skin: No edema, or rash. Ear: No infection. Eyes: No vision loss or color blindness. Nose: No bleeding or purulent discharges. Hearing: Hearing decrease. Neck: No injury. Breast: No history of cancer, masses,or discharges. Cardiac: AFib s/p conversion. Pulmonary: No COPD. GI: No GI ulcer, GI bleeding. Urinary/genital: UTI. Endocrinologic: No cousin face, craniofacial dysmorphism, polydactyly. Skeletomuscular: No muscular atrophy, deformity. Neurological: see HP. Psychiatric: Denies drug use/abuse. Otherwise, not [id number] review of systems. PHYSICAL EXAMINATION: General appearance is in subacute distress. HEENT: Normocephalic and nontraumatic. Eyes, nose, ears, and throat are unremarkable. Neck is supple. No lymphadenopathy. No bruits are heard over the carotid artery. No crepitus. Cardiovascular: S1, S2, regular rate and rhythm. Pulmonary: Clear to auscultation bilaterally. Abdomen: Bowel sounds are positive. Extremities: No rash, lesions, or edema. No restriction of range of motion NEUROLOGICAL EXAMINATION: Lethargy. Not oriented to time, place and person. PERRL. EOMI not elicited. CN: no focal findings. Muscle tone: Left side fluctuated. Muscle strength: movements observed to stimuli in right side. Left side hemiplegia. DTR: 1-2 Plantar reflex: Neutral response bilaterally Gait: Unable to walk. Sensory exam: minimal response to stimuli. Not able to access cerebellar signs due to decreased menta status. F-T-N test not performed due to decreased mentation.. Objective Objective Vital Signs Date Time Temp Pulse Resp B/P (MAP) Pulse Ox O2 Delivery O2 Flow Rate FiO2 03/20/17 14:41 98.7 50 19 116/44 (68) 95 Room Air 98.7 Intake and Output 03/21/17 07:00 Intake Total 340 ml Balance 340 ml Intake Oral 340 ml # Voids 1 Vitals Signs Vitals VS - Last 72 Hours, by Label Date Time Temp Pulse Resp B/P (MAP) Pulse Ox O2 Delivery O2 Flow Rate FiO2 03/20/17 14:41 98.7 50 19 116/44 (68) 95 Room Air 98.7 03/20/17 10:44 98.0 50 19 105/48 (67) 92 Room Air 98.0 03/20/17 08:35 65 139/59 03/20/17 08:35 65 139/59 03/20/17 08:35 65 139/59 03/20/17 08:00 Room Air 03/20/17 07:15 97.7 65 19 139/59 (85) 96 Room Air 97.7 03/20/17 03:15 97.9 60 18 144/65 (91) 97 Room Air 97.9 03/19/17 23:10 98.2 64 18 121/50 (73) 95 Room Air 98.2 03/19/17 20:11 Room Air 03/19/17 19:10 97.4 57 18 124/47 (72) 96 Room Air 97.4 03/19/17 15:00 97.8 62 14 138/60 (86) 91 Room Air 97.8 03/19/17 11:00 97.5 55 14 132/48 (76) 98 Room Air 97.5 03/19/17 10:00 67 137/74 03/19/17 09:59 67 137/74 03/19/17 09:59 67 137/74 03/19/17 08:00 Room Air Laboratory Laboratory Laboratory Tests Test 03/19/17 16:20 03/19/17 16:34 03/19/17 17:10 03/19/17 20:59 Urine Collection Type Unknown Urine Color Yellow Urine Clarity Clear Urine pH 6.5 Urine Specific [place] 1.020 Urine Protein Negative mg/dL (NEG-TRACE) Urine Glucose (UA) Negative mg/dL (NEG) Urine Ketones (Stick) Negative mg/dL (NEG) Urine Blood Trace (NEG) Urine Nitrite Negative (NEG) Urine Bilirubin Negative (NEG) Urine Urobilinogen Dipstick 0.2 mg/dL (0.2 mg/dL) Urine Leukocyte Esterase Trace (NEG) Urine RBC 3-5 /HPF (0-2) Urine WBC Occ /HPF (0-4) Urine Squamous Epithelial Cells Few /LPF Urine Bacteria 0 /HPF (0-FEW) Urine Mucus Slight /LPF Glucose (Fingerstick) 114 mg/dL (70-99) 176 mg/dL (70-99) Digoxin Level < 0.2 ng/mL (0.9-2.0) Digoxin Last Dose Date 03/17/17 Digoxin Last Dose Time 0900 Test 03/20/17 03:40 03/20/17 06:10 03/20/17 07:28 White Blood Count 6.1 x10^3/uL (4.0-11.0) Red Blood Count 3.94 x10^6/uL (3.50-5.40) Hemoglobin 12.1 g/dL (12.0-15.5) Hematocrit 35.6 % (36.0-47.0) Mean Corpuscular Volume 90 fL (79-100) Mean Corpuscular Hemoglobin 31 pg (25-35) Mean Corpuscular Hemoglobin Concent 34 g/dL (31-37) Red Cell Distribution Width 15.2 % (11.5-14.5) Platelet Count 279 x10^3/uL (140-400) Neutrophils (%) (Auto) 55 % (31-73) Lymphocytes (%) (Auto) 32 % (24-48) Monocytes (%) (Auto) 9 % (0-9) Eosinophils (%) (Auto) 3 % (0-3) Basophils (%) (Auto) 1 % (0-3) Neutrophils # (Auto) 3.3 x10^3uL (1.8-7.7) Lymphocytes # (Auto) 1.9 x10^3/uL (1.0-4.8) Monocytes # (Auto) 0.5 x10^3/uL (0.0-1.1) Eosinophils # (Auto) 0.2 x10^3/uL (0.0-0.7) Basophils # (Auto) 0.1 x10^3/uL (0.0-0.2) Sodium Level 140 mmol/L (136-145) Potassium Level 4.0 mmol/L (3.5-5.1) Chloride Level 105 mmol/L (98-107) Carbon Dioxide Level 26 mmol/L (21-32) Anion Gap 9 (6-14) Blood Urea Nitrogen 21 mg/dL (7-20) Creatinine 1.1 mg/dL (0.6-1.0) Estimated GFR (Cockcroft-Gault) 47.4 Glucose Level 99 mg/dL (70-99) Calcium Level 9.3 mg/dL (8.5-10.1) Vitamin B12 Level 407 pg/mL (247-911) Glucose (Fingerstick) 101 mg/dL (70-99) Medication Medications Current Medications Aspirin (Children'S Aspirin) 162 mg DAILYWBKFT PO Last administered on t 08:36; Start 03/20/17 at 08:00 Aspirin (Ecotrin) 325 mg DAILYWBKFT PO ; Start 03/20/17 at 08:00; Stop 03/20/17 at 08:00; Status DC Lorazepam (Ativan) 0.5 mg PRN Q8HRS PRN PO ANXIETY / AGITATION; Start 03/20/17 at 12:45 Comment Review of Relevant I have reviewed the following items rica (where applicable) has been applied. DAVID PABLO MD Mar 20, 2017 15:44
[2017-03-20 19:10] VITALS: BP 125/47
[2017-03-20 23:10] VITALS: BP 130/55
[2017-03-21 03:05] VITALS: BP 131/46
[2017-03-21 07:04] LABS: BASO # 0.1 x10^3/uL (0.0-0.2); BASO % 2 % (0-3); EOS % 4 % (0-3); HEMATOCRIT 36.8 % (36.0-47.0); LYMPH # 2.3 x10^3/uL (1.0-4.8); LYMPH % 34 % (24-48); MEAN CORPUSCULAR HEMOGLOBIN 30 pg (25-35); MEAN CORPUSCULAR HGB CONC 33 g/dL (31-37); MEAN CORPUSCULAR VOLUME 92 fL (79-100); MONO % 8 % (0-9); NEUT % 52 % (31-73); PLATELET COUNT 253 x10^3/uL (140-400); RED CELL DISTRIBUTION WIDTH 14.8 % (11.5-14.5); WHITE BLOOD COUNT 6.7 x10^3/uL (4.0-11.0)
[2017-03-21 07:18] LABS: CALCIUM 8.8 mg/dL (8.5-10.1); CREATININE 1.3 mg/dL (0.6-1.0); GFR 39.1; POTASSIUM 3.9 mmol/L (3.5-5.1)
[2017-03-21 07:39] VITALS: BP 140/47
[2017-03-21] MEDS: amLODIPine BESYLATE 10 MG TABLET PO SCH (08:29)
[2017-03-21] MEDS: PANTOPRAZOLE 40 MG TABLET.DR. PO SCH (08:29)
[2017-03-21] MEDS: GABAPENTIN 100 MG CAPSULE. PO SCH ×3 (08:31→20:37)
[2017-03-21] MEDS: METOPROLOL TART IMMED RELEASE 25 MG TABLET. PO SCH (08:31)
[2017-03-21] MEDS: ASPIRIN CHEWABLE 81 MG TABLET. PO SCH (08:31)
[2017-03-21] MEDS: ISOSORBIDE MONONITRATE ER 30 MG TAB.ER.24H PO SCH (08:32)
[2017-03-21] MEDS: clonazePAM 0.5 MG TABLET PO SCH (08:33)
[2017-03-21 10:51] VITALS: BP 138/61
--- NOTE | 2017-03-21 12:15 | PDOC ---
PROGRESS NOTES Chief Complaint Chief Complaint AMS, 4days, with hallucination, 2/2 a small new right infarct recent Large right [employer] ischemic infarct conformed on 02/03/17, onset time unknown , not a candidate for TPA. possible hemarrhagic change as per son but cannot find a records in our systom, could be at [facility] and not on eliquis ever since stable chronic systolic CHF EF 405 metabolic encephalopathy pafib , not on AC htn aortic aneurysm hearing loss generalized weakness Carotid US 01/2017 showed a possible left thyroid nodule 1cm, tsh normal plan: fu with card, neuro brain MRi done cont home meds on ASA 162mg daily check vitb12 ptot dvt ppx ON METOprolol, not on dig, HR ok , [place] SW for snf talked to family for 10min, will get PAT consult. but PAT is on vacation, will get manager payroll to talk to family. family want pt home . likely dc tmr MRI showed a possible hemarrhagic change, pt already took ASA, defer to neuro to see if need hold it and head CT. chech tsh, Thyroid US History of Present Illness History of Present Illness ROS: no fever, chills, sob or chest pain personality change overnight and today, talks to herself, with hallucination on 03/19, better 03/20 MRI showed rt a new small acute stroke Vitals Vitals Vital Signs Date Time Temp Pulse Resp B/P (MAP) Pulse Ox O2 Delivery O2 Flow Rate FiO2 03/21/17 10:51 97.3 63 18 138/61 (86) 97 Room Air 97.3 Physical Exam Physical Exam aaox2 to person and place General: Alert, Other (somnolent) Heart: Regular rate, Normal S1, Normal S2 Lungs: Clear Abdomen: Normal bowel sounds, Soft, No tenderness Extremities: No edema Skin: No rashes Labs LABS Laboratory Tests Test 03/21/17 06:10 White Blood Count 6.7 x10^3/uL (4.0-11.0) Red Blood Count 4.00 x10^6/uL (3.50-5.40) Hemoglobin 12.0 g/dL (12.0-15.5) Hematocrit 36.8 % (36.0-47.0) Mean Corpuscular Volume 92 fL (79-100) Mean Corpuscular Hemoglobin 30 pg (25-35) Mean Corpuscular Hemoglobin Concent 33 g/dL (31-37) Red Cell Distribution Width 14.8 % (11.5-14.5) Platelet Count 253 x10^3/uL (140-400) Neutrophils (%) (Auto) 52 % (31-73) Lymphocytes (%) (Auto) 34 % (24-48) Monocytes (%) (Auto) 8 % (0-9) Eosinophils (%) (Auto) 4 % (0-3) Basophils (%) (Auto) 2 % (0-3) Neutrophils # (Auto) 3.5 x10^3uL (1.8-7.7) Lymphocytes # (Auto) 2.3 x10^3/uL (1.0-4.8) Monocytes # (Auto) 0.6 x10^3/uL (0.0-1.1) Eosinophils # (Auto) 0.3 x10^3/uL (0.0-0.7) Basophils # (Auto) 0.1 x10^3/uL (0.0-0.2) Sodium Level 142 mmol/L (136-145) Potassium Level 3.9 mmol/L (3.5-5.1) Chloride Level 105 mmol/L (98-107) Carbon Dioxide Level 26 mmol/L (21-32) Anion Gap 11 (6-14) Blood Urea Nitrogen 24 mg/dL (7-20) Creatinine 1.3 mg/dL (0.6-1.0) Estimated GFR (Cockcroft-Gault) 39.1 Glucose Level 83 mg/dL (70-99) Calcium Level 8.8 mg/dL (8.5-10.1) Comment Review of Relevant I have reviewed the following items rica (where applicable) has been applied. Labs Laboratory Tests Test 03/19/17 16:20 03/19/17 16:34 03/19/17 17:10 03/19/17 20:59 Urine Collection Type Unknown Urine Color Yellow Urine Clarity Clear Urine pH 6.5 Urine Specific [place] 1.020 Urine Protein Negative mg/dL (NEG-TRACE) Urine Glucose (UA) Negative mg/dL (NEG) Urine Ketones (Stick) Negative mg/dL (NEG) Urine Blood Trace (NEG) Urine Nitrite Negative (NEG) Urine Bilirubin Negative (NEG) Urine Urobilinogen Dipstick 0.2 mg/dL (0.2 mg/dL) Urine Leukocyte Esterase Trace (NEG) Urine RBC 3-5 /HPF (0-2) Urine WBC Occ /HPF (0-4) Urine Squamous Epithelial Cells Few /LPF Urine Bacteria 0 /HPF (0-FEW) Urine Mucus Slight /LPF Glucose (Fingerstick) 114 mg/dL (70-99) 176 mg/dL (70-99) Digoxin Level < 0.2 ng/mL (0.9-2.0) Digoxin Last Dose Date 03/17/17 Digoxin Last Dose Time 0900 Test 03/20/17 03:40 03/20/17 06:10 03/20/17 07:28 03/21/17 06:10 White Blood Count 6.1 x10^3/uL (4.0-11.0) 6.7 x10^3/uL (4.0-11.0) Red Blood Count 3.94 x10^6/uL (3.50-5.40) 4.00 x10^6/uL (3.50-5.40) Hemoglobin 12.1 g/dL (12.0-15.5) 12.0 g/dL (12.0-15.5) Hematocrit 35.6 % (36.0-47.0) 36.8 % (36.0-47.0) Mean Corpuscular Volume 90 fL (79-100) 92 fL (79-100) Mean Corpuscular Hemoglobin 31 pg (25-35) 30 pg (25-35) Mean Corpuscular Hemoglobin Concent 34 g/dL (31-37) 33 g/dL (31-37) Red Cell Distribution Width 15.2 % (11.5-14.5) 14.8 % (11.5-14.5) Platelet Count 279 x10^3/uL (140-400) 253 x10^3/uL (140-400) Neutrophils (%) (Auto) 55 % (31-73) 52 % (31-73) Lymphocytes (%) (Auto) 32 % (24-48) 34 % (24-48) Monocytes (%) (Auto) 9 % (0-9) 8 % (0-9) Eosinophils (%) (Auto) 3 % (0-3) 4 % (0-3) Basophils (%) (Auto) 1 % (0-3) 2 % (0-3) Neutrophils # (Auto) 3.3 x10^3uL (1.8-7.7) 3.5 x10^3uL (1.8-7.7) Lymphocytes # (Auto) 1.9 x10^3/uL (1.0-4.8) 2.3 x10^3/uL (1.0-4.8) Monocytes # (Auto) 0.5 x10^3/uL (0.0-1.1) 0.6 x10^3/uL (0.0-1.1) Eosinophils # (Auto) 0.2 x10^3/uL (0.0-0.7) 0.3 x10^3/uL (0.0-0.7) Basophils # (Auto) 0.1 x10^3/uL (0.0-0.2) 0.1 x10^3/uL (0.0-0.2) Sodium Level 140 mmol/L (136-145) 142 mmol/L (136-145) Potassium Level 4.0 mmol/L (3.5-5.1) 3.9 mmol/L (3.5-5.1) Chloride Level 105 mmol/L (98-107) 105 mmol/L (98-107) Carbon Dioxide Level 26 mmol/L (21-32) 26 mmol/L (21-32) Anion Gap 9 (6-14) 11 (6-14) Blood Urea Nitrogen 21 mg/dL (7-20) 24 mg/dL (7-20) Creatinine 1.1 mg/dL (0.6-1.0) 1.3 mg/dL (0.6-1.0) Estimated GFR (Cockcroft-Gault) 47.4 39.1 Glucose Level 99 mg/dL (70-99) 83 mg/dL (70-99) Calcium Level 9.3 mg/dL (8.5-10.1) 8.8 mg/dL (8.5-10.1) Vitamin B12 Level 407 pg/mL (247-911) Glucose (Fingerstick) 101 mg/dL (70-99) Laboratory Tests Test 03/21/17 06:10 White Blood Count 6.7 x10^3/uL (4.0-11.0) Red Blood Count 4.00 x10^6/uL (3.50-5.40) Hemoglobin 12.0 g/dL (12.0-15.5) Hematocrit 36.8 % (36.0-47.0) Mean Corpuscular Volume 92 fL (79-100) Mean Corpuscular Hemoglobin 30 pg (25-35) Mean Corpuscular Hemoglobin Concent 33 g/dL (31-37) Red Cell Distribution Width 14.8 % (11.5-14.5) Platelet Count 253 x10^3/uL (140-400) Neutrophils (%) (Auto) 52 % (31-73) Lymphocytes (%) (Auto) 34 % (24-48) Monocytes (%) (Auto) 8 % (0-9) Eosinophils (%) (Auto) 4 % (0-3) Basophils (%) (Auto) 2 % (0-3) Neutrophils # (Auto) 3.5 x10^3uL (1.8-7.7) Lymphocytes # (Auto) 2.3 x10^3/uL (1.0-4.8) Monocytes # (Auto) 0.6 x10^3/uL (0.0-1.1) Eosinophils # (Auto) 0.3 x10^3/uL (0.0-0.7) Basophils # (Auto) 0.1 x10^3/uL (0.0-0.2) Sodium Level 142 mmol/L (136-145) Potassium Level 3.9 mmol/L (3.5-5.1) Chloride Level 105 mmol/L (98-107) Carbon Dioxide Level 26 mmol/L (21-32) Anion Gap 11 (6-14) Blood Urea Nitrogen 24 mg/dL (7-20) Creatinine 1.3 mg/dL (0.6-1.0) Estimated GFR (Cockcroft-Gault) 39.1 Glucose Level 83 mg/dL (70-99) Calcium Level 8.8 mg/dL (8.5-10.1) Medications Current Medications Dextrose (Dextrose 50%-Water Syringe) 12.5 gm PRN Q15MIN PRN IV SEE COMMENTS; Start 03/18/17 at 21:45 Acetaminophen (Tylenol) 325 mg PRN Q6HRS PRN PO MILD PAIN Last administered on 03/19/17 02:55; Start 03/19/17 at 01:00; Stop 03/19/17 at 12:36; Status DC Amlodipine Besylate (Norvasc) 10 mg DAILY PO Last administered on 03/21/17 08: 29; Start 03/19/17 at 09:00 Aspirin (Ecotrin) 81 mg DAILYWBKFT PO Last administered on 03/19/17 08:47; Start 03/19/17 at 08:00; Stop 03/19/17 at 14:10; Status DC Clonazepam (KlonoPIN) 0.5 mg DAILY PO Last administered on 03/20/17 08:36; Start 03/19/17 at 09:00 Gabapentin (Neurontin) 100 mg TID PO Last administered on 03/21/17 08:31; Start 03/19/17 at 09:00 Isosorbide Mononitrate (Imdur) 30 mg DAILY PO Last administered on 03/21/17 08: 32; Start 03/19/17 at 09:00 Loperamide HCl (Imodium) 2 mg PRN Q8HRS PRN PO GI SYMPTOMS; Start 03/19/17 at 01 :00 Metoprolol Tartrate (Lopressor) 25 mg DAILY PO Last administered on 03/21/17 08 :31; Start 03/19/17 at 09:00 Pantoprazole Sodium (Protonix) 40 mg DAILYAC PO Last administered on 03/21/17 08:29; Start 03/19/17 at 07:30 Lorazepam (Ativan) 1 mg 1X ONCE IV ; Start 03/19/17 at 09:45; Stop 03/19/17 at 09 :56; Status DC Acetaminophen (Tylenol) 650 mg PRN Q6HRS PRN PO FEVER Last administered on 14:51; Start 03/19/17 at 12:45 Ondansetron HCl (Zofran) 4 mg PRN Q6HRS PRN IV NAUSEA/VOMITING; Start 03/19/17 at 12:45 Morphine Sulfate 2 mg PRN Q2HR PRN IV PAIN; Start 03/19/17 at 12:45 Tramadol HCl (Ultram) 50 mg PRN Q6HRS PRN PO PAIN; Start 03/19/17 at 12:45 Hydralazine HCl (Apresoline) 10 mg PRN Q4HRS PRN IVP ELEVATED BP, SEE COMMENTS ; Start 03/19/17 at 12:45 Docusate Sodium (Colace) 100 mg PRN DAILY PRN PO CONSTIPATION; Start 03/19/17 at 12:45 Aspirin (Ecotrin) 325 mg DAILYWBKFT PO ; Start 03/20/17 at 08:00; Stop 03/20/17 at 08:00; Status DC Enoxaparin Sodium (Lovenox 30mg Syringe) 30 mg Q24H SQ ; Start 03/19/17 at 15:00 Aspirin (Children'S Aspirin) 162 mg DAILYWBKFT PO Last administered on t 08:31; Start 03/20/17 at 08:00 Lorazepam (Ativan) 0.5 mg PRN Q8HRS PRN PO ANXIETY / AGITATION; Start 03/20/17 at 12:45 Active Scripts Active Digoxin 125 Mcg Tablet 125 Mcg PO 3X/WEEK 30 Days Aspirin Ec (Aspirin) 81 Mg Tablet.dr 81 Mg PO DAILYWBKFT 30 Days Reported Imodium A-D (Loperamide HCl) 2 Mg Capsule 2 Mg PO Clonazepam 0.5 Mg Tablet 1 Tab PO DAILY Metoprolol Tartrate 25 Mg Tablet 1 Tab PO DAILY Amlodipine Besylate 10 Mg Tablet 10 Mg PO DAILY Pantoprazole Sodium 40 Mg Tablet.dr 1 Tab PO DAILY Isosorbide Mononitrate Er (Isosorbide Mononitrate) 30 Mg Tab.er.24h 1 Tab PO DAILY Multivitamins (Multivitamin) 1 Each Tablet 1 Tab PO HS Tylenol (Acetaminophen) 325 Mg Tablet 325 Mg PO PRN Q6HRS PRN Gabapentin 100 Mg Capsule 100 Mg PO TID Vitals/I & O Vital Sign - Last 24 Hours 03/20/17 03/20/17 03/20/17 03/21/17 14:41 19:10 23:10 03:05 Temp 98.7 97.5 98.0 97.6 98.7 97.5 98.0 97.6 Pulse 50 62 64 61 Resp 19 18 18 18 B/P (MAP) 116/44 (68) 125/47 (73) 130/55 (80) 131/46 (74) Pulse Ox 95 95 96 98 O2 Delivery Room Air Room Air Room Air Room Air 03/21/17 03/21/17 03/21/17 03/21/17 07:39 08:00 08:29 08:31 Temp 97.9 97.9 Pulse 65 65 65 Resp 18 B/P (MAP) 140/47 (78) 140/47 140/47 Pulse Ox 98 O2 Delivery Room Air Room Air 03/21/17 03/21/17 08:32 10:51 Temp 97.3 97.3 Pulse 65 63 Resp 18 B/P (MAP) 140/47 138/61 (86) Pulse Ox 97 O2 Delivery Room Air Intake and Output 03/21/17 03/21/17 03/22/17 15:00 23:00 07:00 Intake Total 240 ml Balance 240 ml DAKOTA ARGUETA MD Mar 21, 2017 12:15
--- NOTE | 2017-03-21 13:20 | PDOC ---
CARDIO Progress Notes Date and Time Date of Service 03/21/2017 Time of Evaluation 1300 Subjective Subjective: No Chest Pain, No shortness of breath, No Palpitations Vitals Vitals Vital Signs Date Time Temp Pulse Resp B/P (MAP) Pulse Ox O2 Delivery O2 Flow Rate FiO2 03/21/17 10:51 97.3 63 18 138/61 (86) 97 Room Air 97.3 Weight Weight [ ] Input and Output Intake and Output Intake and Output 03/22/17 07:00 Intake Total 240 ml Balance 240 ml Intake Oral 240 ml Laboratory Labs Laboratory Tests Test 03/21/17 06:10 White Blood Count 6.7 x10^3/uL (4.0-11.0) Red Blood Count 4.00 x10^6/uL (3.50-5.40) Hemoglobin 12.0 g/dL (12.0-15.5) Hematocrit 36.8 % (36.0-47.0) Mean Corpuscular Volume 92 fL (79-100) Mean Corpuscular Hemoglobin 30 pg (25-35) Mean Corpuscular Hemoglobin Concent 33 g/dL (31-37) Red Cell Distribution Width 14.8 % (11.5-14.5) Platelet Count 253 x10^3/uL (140-400) Neutrophils (%) (Auto) 52 % (31-73) Lymphocytes (%) (Auto) 34 % (24-48) Monocytes (%) (Auto) 8 % (0-9) Eosinophils (%) (Auto) 4 % (0-3) Basophils (%) (Auto) 2 % (0-3) Neutrophils # (Auto) 3.5 x10^3uL (1.8-7.7) Lymphocytes # (Auto) 2.3 x10^3/uL (1.0-4.8) Monocytes # (Auto) 0.6 x10^3/uL (0.0-1.1) Eosinophils # (Auto) 0.3 x10^3/uL (0.0-0.7) Basophils # (Auto) 0.1 x10^3/uL (0.0-0.2) Sodium Level 142 mmol/L (136-145) Potassium Level 3.9 mmol/L (3.5-5.1) Chloride Level 105 mmol/L (98-107) Carbon Dioxide Level 26 mmol/L (21-32) Anion Gap 11 (6-14) Blood Urea Nitrogen 24 mg/dL (7-20) Creatinine 1.3 mg/dL (0.6-1.0) Estimated GFR (Cockcroft-Gault) 39.1 Glucose Level 83 mg/dL (70-99) Calcium Level 8.8 mg/dL (8.5-10.1) Physical Exam HEENT: Neck Supple W Full Motion Chest: Symmetric LUNGS: Clear to Auscultation Heart: S1S2, RRR (SR) Abdomen: Soft N/T Extremities: No Calf Tenderness Neurology: alert, oriented, follow commands Assessment Assessment 1. Acute CVA: neurology following 2. PAFIB: remains SR 3. NICM: EF 25-30%. compensated 4. HTN Recommendations 1. Continue with ASA. unable to place on NOAC with possible hemorrhagic transformation. 2. Continue with current cardiac regimen and optimization 3. Supportive care, follow up with Dr. Simpson [facility] cardiology when GUNNAR FUNK APRN Mar 21, 2017 13:20
--- NOTE | 2017-03-21 13:47 | PDOC ---
PROGRESS NOTES Assessment Metabolic encephalopathy. 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 NH placement Discussed with family Subjective feels better Objective Vital Signs Date Time Temp Pulse Resp B/P (MAP) Pulse Ox O2 Delivery O2 Flow Rate FiO2 03/21/17 10:51 97.3 63 18 138/61 (86) 97 Room Air 97.3 Intake and Output 03/22/17 06:59 Intake Total 480 ml Balance 480 ml Intake Oral 480 ml PHYSICAL EXAM Alert. Oriented to person, knows that she is in the hospital, does not know its name, does not know the date. PERRL. EOMI. CN: Left homonymous hemianopsia, no facial asymmetry. Muscle tone: normal. Muscle strength: 2-3/5 left hemiparesis DTR: 1+ Plantar reflex: Flexor Gait: not examined in bed. Sensory exam: no abnormal findings. No cerebellar signs elicited. Review of Relevant I have reviewed the following items rica (where applicable) has been applied. Labs Laboratory Tests Test 03/19/17 16:20 03/19/17 16:34 03/19/17 17:10 03/19/17 20:59 Urine Collection Type Unknown Urine Color Yellow Urine Clarity Clear Urine pH 6.5 Urine Specific [place] 1.020 Urine Protein Negative mg/dL (NEG-TRACE) Urine Glucose (UA) Negative mg/dL (NEG) Urine Ketones (Stick) Negative mg/dL (NEG) Urine Blood Trace (NEG) Urine Nitrite Negative (NEG) Urine Bilirubin Negative (NEG) Urine Urobilinogen Dipstick 0.2 mg/dL (0.2 mg/dL) Urine Leukocyte Esterase Trace (NEG) Urine RBC 3-5 /HPF (0-2) Urine WBC Occ /HPF (0-4) Urine Squamous Epithelial Cells Few /LPF Urine Bacteria 0 /HPF (0-FEW) Urine Mucus Slight /LPF Glucose (Fingerstick) 114 mg/dL (70-99) 176 mg/dL (70-99) Digoxin Level < 0.2 ng/mL (0.9-2.0) Digoxin Last Dose Date 03/17/17 Digoxin Last Dose Time 0900 Test 03/20/17 03:40 03/20/17 06:10 03/20/17 07:28 03/21/17 06:10 White Blood Count 6.1 x10^3/uL (4.0-11.0) 6.7 x10^3/uL (4.0-11.0) Red Blood Count 3.94 x10^6/uL (3.50-5.40) 4.00 x10^6/uL (3.50-5.40) Hemoglobin 12.1 g/dL (12.0-15.5) 12.0 g/dL (12.0-15.5) Hematocrit 35.6 % (36.0-47.0) 36.8 % (36.0-47.0) Mean Corpuscular Volume 90 fL (79-100) 92 fL (79-100) Mean Corpuscular Hemoglobin 31 pg (25-35) 30 pg (25-35) Mean Corpuscular Hemoglobin Concent 34 g/dL (31-37) 33 g/dL (31-37) Red Cell Distribution Width 15.2 % (11.5-14.5) 14.8 % (11.5-14.5) Platelet Count 279 x10^3/uL (140-400) 253 x10^3/uL (140-400) Neutrophils (%) (Auto) 55 % (31-73) 52 % (31-73) Lymphocytes (%) (Auto) 32 % (24-48) 34 % (24-48) Monocytes (%) (Auto) 9 % (0-9) 8 % (0-9) Eosinophils (%) (Auto) 3 % (0-3) 4 % (0-3) Basophils (%) (Auto) 1 % (0-3) 2 % (0-3) Neutrophils # (Auto) 3.3 x10^3uL (1.8-7.7) 3.5 x10^3uL (1.8-7.7) Lymphocytes # (Auto) 1.9 x10^3/uL (1.0-4.8) 2.3 x10^3/uL (1.0-4.8) Monocytes # (Auto) 0.5 x10^3/uL (0.0-1.1) 0.6 x10^3/uL (0.0-1.1) Eosinophils # (Auto) 0.2 x10^3/uL (0.0-0.7) 0.3 x10^3/uL (0.0-0.7) Basophils # (Auto) 0.1 x10^3/uL (0.0-0.2) 0.1 x10^3/uL (0.0-0.2) Sodium Level 140 mmol/L (136-145) 142 mmol/L (136-145) Potassium Level 4.0 mmol/L (3.5-5.1) 3.9 mmol/L (3.5-5.1) Chloride Level 105 mmol/L (98-107) 105 mmol/L (98-107) Carbon Dioxide Level 26 mmol/L (21-32) 26 mmol/L (21-32) Anion Gap 9 (6-14) 11 (6-14) Blood Urea Nitrogen 21 mg/dL (7-20) 24 mg/dL (7-20) Creatinine 1.1 mg/dL (0.6-1.0) 1.3 mg/dL (0.6-1.0) Estimated GFR (Cockcroft-Gault) 47.4 39.1 Glucose Level 99 mg/dL (70-99) 83 mg/dL (70-99) Calcium Level 9.3 mg/dL (8.5-10.1) 8.8 mg/dL (8.5-10.1) Vitamin B12 Level 407 pg/mL (247-911) Glucose (Fingerstick) 101 mg/dL (70-99) Laboratory Tests Test 03/21/17 06:10 White Blood Count 6.7 x10^3/uL (4.0-11.0) Red Blood Count 4.00 x10^6/uL (3.50-5.40) Hemoglobin 12.0 g/dL (12.0-15.5) Hematocrit 36.8 % (36.0-47.0) Mean Corpuscular Volume 92 fL (79-100) Mean Corpuscular Hemoglobin 30 pg (25-35) Mean Corpuscular Hemoglobin Concent 33 g/dL (31-37) Red Cell Distribution Width 14.8 % (11.5-14.5) Platelet Count 253 x10^3/uL (140-400) Neutrophils (%) (Auto) 52 % (31-73) Lymphocytes (%) (Auto) 34 % (24-48) Monocytes (%) (Auto) 8 % (0-9) Eosinophils (%) (Auto) 4 % (0-3) Basophils (%) (Auto) 2 % (0-3) Neutrophils # (Auto) 3.5 x10^3uL (1.8-7.7) Lymphocytes # (Auto) 2.3 x10^3/uL (1.0-4.8) Monocytes # (Auto) 0.6 x10^3/uL (0.0-1.1) Eosinophils # (Auto) 0.3 x10^3/uL (0.0-0.7) Basophils # (Auto) 0.1 x10^3/uL (0.0-0.2) Sodium Level 142 mmol/L (136-145) Potassium Level 3.9 mmol/L (3.5-5.1) Chloride Level 105 mmol/L (98-107) Carbon Dioxide Level 26 mmol/L (21-32) Anion Gap 11 (6-14) Blood Urea Nitrogen 24 mg/dL (7-20) Creatinine 1.3 mg/dL (0.6-1.0) Estimated GFR (Cockcroft-Gault) 39.1 Glucose Level 83 mg/dL (70-99) Calcium Level 8.8 mg/dL (8.5-10.1) Medications Current Medications Dextrose (Dextrose 50%-Water Syringe) 12.5 gm PRN Q15MIN PRN IV SEE COMMENTS; Start 03/18/17 at 21:45 Acetaminophen (Tylenol) 325 mg PRN Q6HRS PRN PO MILD PAIN Last administered on 03/19/17 02:55; Start 03/19/17 at 01:00; Stop 03/19/17 at 12:36; Status DC Amlodipine Besylate (Norvasc) 10 mg DAILY PO Last administered on 03/21/17 08: 29; Start 03/19/17 at 09:00 Aspirin (Ecotrin) 81 mg DAILYWBKFT PO Last administered on 03/19/17 08:47; Start 03/19/17 at 08:00; Stop 03/19/17 at 14:10; Status DC Clonazepam (KlonoPIN) 0.5 mg DAILY PO Last administered on 03/20/17 08:36; Start 03/19/17 at 09:00 Gabapentin (Neurontin) 100 mg TID PO Last administered on 03/21/17 08:31; Start 03/19/17 at 09:00 Isosorbide Mononitrate (Imdur) 30 mg DAILY PO Last administered on 03/21/17 08: 32; Start 03/19/17 at 09:00 Loperamide HCl (Imodium) 2 mg PRN Q8HRS PRN PO GI SYMPTOMS; Start 03/19/17 at 01 :00 Metoprolol Tartrate (Lopressor) 25 mg DAILY PO Last administered on 03/21/17 08 :31; Start 03/19/17 at 09:00 Pantoprazole Sodium (Protonix) 40 mg DAILYAC PO Last administered on 03/21/17 08:29; Start 03/19/17 at 07:30 Lorazepam (Ativan) 1 mg 1X ONCE IV ; Start 03/19/17 at 09:45; Stop 03/19/17 at 09 :56; Status DC Acetaminophen (Tylenol) 650 mg PRN Q6HRS PRN PO FEVER Last administered on 14:51; Start 03/19/17 at 12:45 Ondansetron HCl (Zofran) 4 mg PRN Q6HRS PRN IV NAUSEA/VOMITING; Start 03/19/17 at 12:45 Morphine Sulfate 2 mg PRN Q2HR PRN IV PAIN; Start 03/19/17 at 12:45 Tramadol HCl (Ultram) 50 mg PRN Q6HRS PRN PO PAIN; Start 03/19/17 at 12:45 Hydralazine HCl (Apresoline) 10 mg PRN Q4HRS PRN IVP ELEVATED BP, SEE COMMENTS ; Start 03/19/17 at 12:45 Docusate Sodium (Colace) 100 mg PRN DAILY PRN PO CONSTIPATION; Start 03/19/17 at 12:45 Aspirin (Ecotrin) 325 mg DAILYWBKFT PO ; Start 03/20/17 at 08:00; Stop 03/20/17 at 08:00; Status DC Enoxaparin Sodium (Lovenox 30mg Syringe) 30 mg Q24H SQ ; Start 03/19/17 at 15:00 Aspirin (Children'S Aspirin) 162 mg DAILYWBKFT PO Last administered on 9/5/ 17at 08:31; Start 03/20/17 at 08:00 Lorazepam (Ativan) 0.5 mg PRN Q8HRS PRN PO ANXIETY / AGITATION; Start 03/20/17 at 12:45 Active Scripts Active Digoxin 125 Mcg Tablet 125 Mcg PO 3X/WEEK 30 Days Aspirin Ec (Aspirin) 81 Mg Tablet. 81 Mg PO DAILYWBKFT 30 Days Reported Imodium A-D (Loperamide HCl) 2 Mg Capsule 2 Mg PO Clonazepam 0.5 Mg Tablet 1 Tab PO DAILY Metoprolol Tartrate 25 Mg Tablet 1 Tab PO DAILY Amlodipine Besylate 10 Mg Tablet 10 Mg PO DAILY Pantoprazole Sodium 40 Mg Tablet.dr 1 Tab PO DAILY Isosorbide Mononitrate Er (Isosorbide Mononitrate) 30 Mg Tab.er.24h 1 Tab PO DAILY Multivitamins (Multivitamin) 1 Each Tablet 1 Tab PO HS Tylenol (Acetaminophen) 325 Mg Tablet 325 Mg PO PRN Q6HRS PRN Gabapentin 100 Mg Capsule 100 Mg PO TID Vitals/I & O Vital Sign - Last 24 Hours 03/20/17 03/20/17 03/20/17 03/21/17 14:41 19:10 23:10 03:05 Temp 98.7 97.5 98.0 97.6 98.7 97.5 98.0 97.6 Pulse 50 62 64 61 Resp 19 18 18 18 B/P (MAP) 116/44 (68) 125/47 (73) 130/55 (80) 131/46 (74) Pulse Ox 95 95 96 98 O2 Delivery Room Air Room Air Room Air Room Air 03/21/17 03/21/17 03/21/17 03/21/17 07:39 08:00 08:29 08:31 Temp 97.9 97.9 Pulse 65 65 65 Resp 18 B/P (MAP) 140/47 (78) 140/47 140/47 Pulse Ox 98 O2 Delivery Room Air Room Air 03/21/17 03/21/17 08:32 10:51 Temp 97.3 97.3 Pulse 65 63 Resp 18 B/P (MAP) 140/47 138/61 (86) Pulse Ox 97 O2 Delivery Room Air Intake and Output 03/21/17 03/21/17 03/22/17 14:59 22:59 06:59 Intake Total 480 ml Balance 480 ml Images MRI brain, 03/19: Findings: There is no evidence of midline shift. There is a small focus of possible restricted diffusion identified in the inferior aspect of the right thalamus posteriorly probably acute ischemic infarct measuring 1.2 cm. In the region of prior ischemia, in the right posterior cerebral artery distribution of the temporal and occipital lobe demonstrates a low susceptibility artifact on gradient sequences suggesting possible blood products within the prior stroke likely hemorrhagic transformation of the prior stroke. Another small focus of increased signal on the DWI images identified in the medial aspect of the right posterior temporal lobe without corresponding changes of ADC signal probably secondary to blood product and less likely acute ischemic infarct. The visualized lateral ventricles, third ventricle, fourth ventricle and proper for age moderate bilateral ventricular white matter FLAIR signal likely chronic small vessel ischemic disease. The visualized flow voids in the major intracranial vessels grossly appears unremarkable The visualized paranasal sinuses, mastoid air cells are clear Basal cisterns are uneffaced Age related cerebral cerebral atrophic changes. Impression: 1. A small focus of possible restricted diffusion identified in the inferior aspect of the right thalamus posteriorly probably acute ischemic infarct measuring 1.2 cm. Another small focus of increased signal on the DWI images identified in the medial aspect of the right posterior temporal lobe without corresponding changes of ADC signal probably secondary to blood product and less likely acute ischemic infarct. 2. In the region of prior ischemia, in the right posterior cerebral artery distribution of the temporal and occipital lobe demonstrates susceptibility artifact on gradient sequences suggesting possible blood products within the prior stroke likely hemorrhagic transformation /blood products or hemosiderin staining of the prior stroke. Noncontrast CT may be helpful. STEVE CASTELLANOS MD Mar 21, 2017 13:47
[2017-03-21] MEDS: ENOXAPARIN 30 MG/0.3 ML SYRINGE. SQ SCH (14:14)
[2017-03-21 15:08] VITALS: BP 125/52
--- NOTE | 2017-03-21 16:26 | RAD ---
Thyroid ultrasound, 03/21/2017: History: Possible thyroid nodule The right lobe of the gland measures 3.1 x 0.9 x 0.9 cm while the left lobe of the gland measures 3.9 x 1.4 x 1.6 cm. There are multiple nodules in both lobes of the gland. The largest nodule lies in the mid to upper pole of the left lobe of the gland and measures 13 mm. This is a solid nodule with internal color flow. Its echo pattern is mildly heterogeneous. Its margins are smooth. It is wider than tall. There is a smooth 7 mm isoechoic nodule in the lower pole of the left lobe of the gland, also wider than tall. The largest nodule in the right lobe of the gland is heterogeneous and echogenic and measures 10 mm greatest diameter. It is less clearly defined due to its low position. A 9 mm nodule with similar echogenic sonographic characteristics is present at the level of the isthmus. Small cysts are seen along the margin of this lesion. There is a 9 mm solid appearing slightly hypoechoic nodule located in the midportion of the right lobe of the gland. No definite calcifications are seen in these nodules. IMPRESSION: Multinodular thyroid gland as described above. The sonographic characteristics of these individual nodules are nonspecific. No highly suspicious sonographic features are evident. Sonographic surveillance is suggested.
[2017-03-21 19:30] VITALS: BP 117/53
[2017-03-21 23:35] VITALS: BP 128/36
[2017-03-22 03:08] VITALS: BP 143/57
[2017-03-22 07:00] VITALS: BP 126/45
[2017-03-22] MEDS: PANTOPRAZOLE 40 MG TABLET.DR. PO SCH (08:20)
[2017-03-22] MEDS: clonazePAM 0.5 MG TABLET PO SCH (08:20)
[2017-03-22] MEDS: GABAPENTIN 100 MG CAPSULE. PO SCH ×2 (08:20→14:56)
[2017-03-22] MEDS: ASPIRIN CHEWABLE 81 MG TABLET. PO SCH (08:20)
[2017-03-22] MEDS: ISOSORBIDE MONONITRATE ER 30 MG TAB.ER.24H PO SCH (08:20)
[2017-03-22] MEDS: METOPROLOL TART IMMED RELEASE 25 MG TABLET. PO SCH (08:20)
[2017-03-22] MEDS: amLODIPine BESYLATE 10 MG TABLET PO SCH (08:21)
--- NOTE | 2017-03-22 10:44 | PDOC ---
PROGRESS NOTES Assessment Metabolic encephalopathy. 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 NH placement Continued DVT-dose Lovenox Subjective No complaints Objective Vital Signs Date Time Temp Pulse Resp B/P (MAP) Pulse Ox O2 Delivery O2 Flow Rate FiO2 03/22/17 08:21 66 126/45 03/22/17 08:00 Room Air 03/22/17 07:00 97.7 18 96 97.7 PHYSICAL EXAM Alert. Oriented to person, knows that she is in the hospital, does not know its name, does not know the date. PERRL. EOMI. CN: Left homonymous hemianopsia, slight left central facial weakness Muscle tone: normal. Muscle strength: 2-3/5 left hemiparesis DTR: 1+ Plantar reflex: Flexor Gait: not examined in bed. Sensory exam: no abnormal findings. No cerebellar signs elicited. Review of Relevant I have reviewed the following items rica (where applicable) has been applied. Labs Laboratory Tests Test 03/21/17 06:10 White Blood Count 6.7 x10^3/uL (4.0-11.0) Red Blood Count 4.00 x10^6/uL (3.50-5.40) Hemoglobin 12.0 g/dL (12.0-15.5) Hematocrit 36.8 % (36.0-47.0) Mean Corpuscular Volume 92 fL (79-100) Mean Corpuscular Hemoglobin 30 pg (25-35) Mean Corpuscular Hemoglobin Concent 33 g/dL (31-37) Red Cell Distribution Width 14.8 % (11.5-14.5) Platelet Count 253 x10^3/uL (140-400) Neutrophils (%) (Auto) 52 % (31-73) Lymphocytes (%) (Auto) 34 % (24-48) Monocytes (%) (Auto) 8 % (0-9) Eosinophils (%) (Auto) 4 % (0-3) Basophils (%) (Auto) 2 % (0-3) Neutrophils # (Auto) 3.5 x10^3uL (1.8-7.7) Lymphocytes # (Auto) 2.3 x10^3/uL (1.0-4.8) Monocytes # (Auto) 0.6 x10^3/uL (0.0-1.1) Eosinophils # (Auto) 0.3 x10^3/uL (0.0-0.7) Basophils # (Auto) 0.1 x10^3/uL (0.0-0.2) Sodium Level 142 mmol/L (136-145) Potassium Level 3.9 mmol/L (3.5-5.1) Chloride Level 105 mmol/L (98-107) Carbon Dioxide Level 26 mmol/L (21-32) Anion Gap 11 (6-14) Blood Urea Nitrogen 24 mg/dL (7-20) Creatinine 1.3 mg/dL (0.6-1.0) Estimated GFR (Cockcroft-Gault) 39.1 Glucose Level 83 mg/dL (70-99) Calcium Level 8.8 mg/dL (8.5-10.1) Thyroid Stimulating Hormone (TSH) 2.776 uIU/mL (0.358-3.74) Microbiology 03/19/17 Urine Culture - Preliminary, Resulted 03/19/17 Urine Culture Result 1 (GENEVA) - Preliminary, Resulted Medications Current Medications Dextrose (Dextrose 50%-Water Syringe) 12.5 gm PRN Q15MIN PRN IV SEE COMMENTS; Start 03/18/17 at 21:45 Acetaminophen (Tylenol) 325 mg PRN Q6HRS PRN PO MILD PAIN Last administered on 03/19/17 02:55; Start 03/19/17 at 01:00; Stop 03/19/17 at 12:36; Status DC Amlodipine Besylate (Norvasc) 10 mg DAILY PO Last administered on 03/22/17 08: 21; Start 03/19/17 at 09:00 Aspirin (Ecotrin) 81 mg DAILYWBKFT PO Last administered on 03/19/17 08:47; Start 03/19/17 at 08:00; Stop 03/19/17 at 14:10; Status DC Clonazepam (KlonoPIN) 0.5 mg DAILY PO Last administered on 03/22/17 08:20; Start 03/19/17 at 09:00 Gabapentin (Neurontin) 100 mg TID PO Last administered on 03/22/17 08:20; Start 03/19/17 at 09:00 Isosorbide Mononitrate (Imdur) 30 mg DAILY PO Last administered on 03/22/17 08: 20; Start 03/19/17 at 09:00 Loperamide HCl (Imodium) 2 mg PRN Q8HRS PRN PO GI SYMPTOMS; Start 03/19/17 at 01 :00 Metoprolol Tartrate (Lopressor) 25 mg DAILY PO Last administered on 03/22/17 08 :20; Start 03/19/17 at 09:00 Pantoprazole Sodium (Protonix) 40 mg DAILYAC PO Last administered on 03/22/17 08:20; Start 03/19/17 at 07:30 Lorazepam (Ativan) 1 mg 1X ONCE IV ; Start 03/19/17 at 09:45; Stop 03/19/17 at 09 :56; Status DC Acetaminophen (Tylenol) 650 mg PRN Q6HRS PRN PO FEVER Last administered on 14:51; Start 03/19/17 at 12:45 Ondansetron HCl (Zofran) 4 mg PRN Q6HRS PRN IV NAUSEA/VOMITING; Start 03/19/17 at 12:45 Morphine Sulfate 2 mg PRN Q2HR PRN IV PAIN; Start 03/19/17 at 12:45 Tramadol HCl (Ultram) 50 mg PRN Q6HRS PRN PO PAIN; Start 03/19/17 at 12:45 Hydralazine HCl (Apresoline) 10 mg PRN Q4HRS PRN IVP ELEVATED BP, SEE COMMENTS ; Start 03/19/17 at 12:45 Docusate Sodium (Colace) 100 mg PRN DAILY PRN PO CONSTIPATION; Start 03/19/17 at 12:45 Aspirin (Ecotrin) 325 mg DAILYWBKFT PO ; Start 03/20/17 at 08:00; Stop 03/20/17 at 08:00; Status DC Enoxaparin Sodium (Lovenox 30mg Syringe) 30 mg Q24H SQ Last administered on 03/21 14:14; Start 03/19/17 at 15:00 Aspirin (Children'S Aspirin) 162 mg DAILYWBKFT PO Last administered on 08:20; Start 03/20/17 at 08:00 Lorazepam (Ativan) 0.5 mg PRN Q8HRS PRN PO ANXIETY / AGITATION Last administered on 03/21/17t 21:34; Start 03/20/17 at 12:45 Active Scripts Active Digoxin 125 Mcg Tablet 125 Mcg PO 3X/WEEK 30 Days Aspirin Ec (Aspirin) 81 Mg Tablet. 81 Mg PO DAILYWBKFT 30 Days Reported Imodium A-D (Loperamide HCl) 2 Mg Capsule 2 Mg PO Clonazepam 0.5 Mg Tablet 1 Tab PO DAILY Metoprolol Tartrate 25 Mg Tablet 1 Tab PO DAILY Amlodipine Besylate 10 Mg Tablet 10 Mg PO DAILY Pantoprazole Sodium 40 Mg Tablet. 1 Tab PO DAILY Isosorbide Mononitrate Er (Isosorbide Mononitrate) 30 Mg Tab.er.24h 1 Tab PO DAILY Multivitamins (Multivitamin) 1 Each Tablet 1 Tab PO HS Tylenol (Acetaminophen) 325 Mg Tablet 325 Mg PO PRN Q6HRS PRN Gabapentin 100 Mg Capsule 100 Mg PO TID Vitals/I & O Vital Sign - Last 24 Hours 03/21/17 03/21/17 03/21/17 03/21/17 10:51 15:08 19:30 20:15 Temp 97.3 97.8 98.1 97.3 97.8 98.1 Pulse 63 66 64 Resp 18 18 18 B/P (MAP) 138/61 (86) 125/52 (76) 117/53 (74) Pulse Ox 97 95 96 O2 Delivery Room Air Room Air Room Air Room Air 03/21/17 03/22/17 03/22/17 03/22/17 23:35 03:08 07:00 08:00 Temp 97.4 97.7 97.7 97.4 97.7 97.7 Pulse 67 68 66 Resp 16 18 18 B/P (MAP) 128/36 (66) 143/57 (85) 126/45 (72) Pulse Ox 96 97 96 O2 Delivery Room Air Room Air Room Air Room Air 03/22/17 03/22/17 03/22/17 08:20 08:20 08:21 Pulse 66 66 66 B/P (MAP) 126/45 126/45 126/45 STEVE CASTELLANOS MD Mar 22, 2017 10:44
[2017-03-22 11:00] VITALS: BP 116/44
--- NOTE | 2017-03-22 12:05 | RAD ---
Indication intermittent episodes of stroke like symptoms. Noncontrast images of the head were obtained. Note is made of a previous examination 02/02/2017. Note is made of an MRI examination 03/19/2017. The calvarium appears unremarkable. The visualized paranasal sinuses appear normal. There is no subdural or epidural hematoma. There is moderate atrophy. There is increased lucency in the deep white matter compatible with microvascular disease. There are now encephalomalacic areas in the distribution of the right posterior cerebral artery consistent with the areas of subacute ischemia seen on the previous CT examination. There are foci of increased density in the right occipital lobe, in the same area where the areas of abnormality were seen on the gradient echo sequence in the MRI examination 3 days ago consistent with punctate areas of hemorrhage. IMPRESSION: Encephalomalacic changes in the right cerebral hemisphere compatible with old stroke. Punctate areas of increased density in the right occipital lobe compatible with small areas of hemorrhage. PQRS Compliance Statement: One or more of the following individualized dose reduction techniques were utilized for this examination: 1. Automated exposure control 2. Adjustment of the mA and/or kV according to patient size 3. Use of iterative reconstruction technique
--- NOTE | 2017-03-22 12:57 | PDOC ---
PROGRESS NOTES Chief Complaint Chief Complaint AMS, 4days, with hallucination, 2/2 a small new right infarct recent Large right [employer]ICE ischemic infarct conformed on 02/03/17, onset time unknown , not a candidate for TPA. possible hemarrhagic change as per son but cannot find a records in our systom, could be at [facility] and not on eliquis ever since stable chronic systolic CHF EF 405 metabolic encephalopathy pafib , not on AC htn aortic aneurysm hearing loss generalized weakness US showed multiple small thyroid nodule <1cm, tsh normal. no need treatment now plan: fu with card, neuro brain MRi done cont home meds on ASA 162mg daily ptot dvt ppx ON METOprolol, not on dig, HR ok , [place] talked to family for 10min, will get PAT consult. but PAT is on vacation, will get optical laboratory manager to talk to family. family want pt home . likely dc tmr MRI showed a possible hemarrhagic change, pt already took ASA, defer to neuro to see if need hold it and head CT. Pt not responding again on 03/22 ,repeat Head CT didnot show new stroke but showed small area of hemarrhage. will talk to Neuro to see if need hold asa, dc lovenox, PAT consult in progress , pt family consider hospice too History of Present Illness History of Present Illness ROS: no fever, chills, sob or chest pain personality change overnight and today, talks to herself, with hallucination on 03/19, better 03/20 03/21 mental ok 03/22, less responding again MRI showed rt a new small acute stroke Vitals Vitals Vital Signs Date Time Temp Pulse Resp B/P (MAP) Pulse Ox O2 Delivery O2 Flow Rate FiO2 03/22/17 11:00 97.7 57 18 116/44 (68) 96 Room Air 97.7 Physical Exam Physical Exam aaox2 to person and place General: Alert, Other (somnolent) Heart: Regular rate, Normal S1, Normal S2 Lungs: Clear Abdomen: Normal bowel sounds, Soft, No tenderness Extremities: No edema Skin: No rashes Comment Review of Relevant I have reviewed the following items rica (where applicable) has been applied. Labs Laboratory Tests Test 03/21/17 06:10 White Blood Count 6.7 x10^3/uL (4.0-11.0) Red Blood Count 4.00 x10^6/uL (3.50-5.40) Hemoglobin 12.0 g/dL (12.0-15.5) Hematocrit 36.8 % (36.0-47.0) Mean Corpuscular Volume 92 fL (79-100) Mean Corpuscular Hemoglobin 30 pg (25-35) Mean Corpuscular Hemoglobin Concent 33 g/dL (31-37) Red Cell Distribution Width 14.8 % (11.5-14.5) Platelet Count 253 x10^3/uL (140-400) Neutrophils (%) (Auto) 52 % (31-73) Lymphocytes (%) (Auto) 34 % (24-48) Monocytes (%) (Auto) 8 % (0-9) Eosinophils (%) (Auto) 4 % (0-3) Basophils (%) (Auto) 2 % (0-3) Neutrophils # (Auto) 3.5 x10^3uL (1.8-7.7) Lymphocytes # (Auto) 2.3 x10^3/uL (1.0-4.8) Monocytes # (Auto) 0.6 x10^3/uL (0.0-1.1) Eosinophils # (Auto) 0.3 x10^3/uL (0.0-0.7) Basophils # (Auto) 0.1 x10^3/uL (0.0-0.2) Sodium Level 142 mmol/L (136-145) Potassium Level 3.9 mmol/L (3.5-5.1) Chloride Level 105 mmol/L (98-107) Carbon Dioxide Level 26 mmol/L (21-32) Anion Gap 11 (6-14) Blood Urea Nitrogen 24 mg/dL (7-20) Creatinine 1.3 mg/dL (0.6-1.0) Estimated GFR (Cockcroft-Gault) 39.1 Glucose Level 83 mg/dL (70-99) Calcium Level 8.8 mg/dL (8.5-10.1) Thyroid Stimulating Hormone (TSH) 2.776 uIU/mL (0.358-3.74) Microbiology 03/19/17 Urine Culture - Preliminary, Resulted 03/19/17 Urine Culture Result 1 (GENEVA) - Preliminary, Resulted Medications Current Medications Dextrose (Dextrose 50%-Water Syringe) 12.5 gm PRN Q15MIN PRN IV SEE COMMENTS; Start 03/18/17 at 21:45 Acetaminophen (Tylenol) 325 mg PRN Q6HRS PRN PO MILD PAIN Last administered on 03/19/17 02:55; Start 03/19/17 at 01:00; Stop 03/19/17 at 12:36; Status DC Amlodipine Besylate (Norvasc) 10 mg DAILY PO Last administered on 03/22/17 08: 21; Start 03/19/17 at 09:00 Aspirin (Ecotrin) 81 mg DAILYWBKFT PO Last administered on 03/19/17 08:47; Start 03/19/17 at 08:00; Stop 03/19/17 at 14:10; Status DC Clonazepam (KlonoPIN) 0.5 mg DAILY PO Last administered on 03/22/17 08:20; Start 03/19/17 at 09:00 Gabapentin (Neurontin) 100 mg TID PO Last administered on 03/22/17 08:20; Start 03/19/17 at 09:00 Isosorbide Mononitrate (Imdur) 30 mg DAILY PO Last administered on 03/22/17 08: 20; Start 03/19/17 at 09:00 Loperamide HCl (Imodium) 2 mg PRN Q8HRS PRN PO GI SYMPTOMS; Start 03/19/17 at 01 :00 Metoprolol Tartrate (Lopressor) 25 mg DAILY PO Last administered on 03/22/17 08 :20; Start 03/19/17 at 09:00 Pantoprazole Sodium (Protonix) 40 mg DAILYAC PO Last administered on 03/22/17 08:20; Start 03/19/17 at 07:30 Lorazepam (Ativan) 1 mg 1X ONCE IV ; Start 03/19/17 at 09:45; Stop 03/19/17 at 09 :56; Status DC Acetaminophen (Tylenol) 650 mg PRN Q6HRS PRN PO FEVER Last administered on 14:51; Start 03/19/17 at 12:45 Ondansetron HCl (Zofran) 4 mg PRN Q6HRS PRN IV NAUSEA/VOMITING; Start 03/19/17 at 12:45 Morphine Sulfate 2 mg PRN Q2HR PRN IV PAIN; Start 03/19/17 at 12:45 Tramadol HCl (Ultram) 50 mg PRN Q6HRS PRN PO PAIN; Start 03/19/17 at 12:45 Hydralazine HCl (Apresoline) 10 mg PRN Q4HRS PRN IVP ELEVATED BP, SEE COMMENTS ; Start 03/19/17 at 12:45 Docusate Sodium (Colace) 100 mg PRN DAILY PRN PO CONSTIPATION; Start 03/19/17 at 12:45 Aspirin (Ecotrin) 325 mg DAILYWBKFT PO ; Start 03/20/17 at 08:00; Stop 03/20/17 at 08:00; Status DC Enoxaparin Sodium (Lovenox 30mg Syringe) 30 mg Q24H SQ Last administered on 03/21 14:14; Start 03/19/17 at 15:00 Aspirin (Children'S Aspirin) 162 mg DAILYWBKFT PO Last administered on 08:20; Start 03/20/17 at 08:00 Lorazepam (Ativan) 0.5 mg PRN Q8HRS PRN PO ANXIETY / AGITATION Last administered on 03/21/17 21:34; Start 03/20/17 at 12:45 Active Scripts Active Digoxin 125 Mcg Tablet 125 Mcg PO 3X/WEEK 30 Days Aspirin Ec (Aspirin) 81 Mg Tablet. 81 Mg PO DAILYWBKFT 30 Days Reported Imodium A-D (Loperamide HCl) 2 Mg Capsule 2 Mg PO Clonazepam 0.5 Mg Tablet 1 Tab PO DAILY Metoprolol Tartrate 25 Mg Tablet 1 Tab PO DAILY Amlodipine Besylate 10 Mg Tablet 10 Mg PO DAILY Pantoprazole Sodium 40 Mg Tablet. 1 Tab PO DAILY Isosorbide Mononitrate Er (Isosorbide Mononitrate) 30 Mg Tab.er.24h 1 Tab PO DAILY Multivitamins (Multivitamin) 1 Each Tablet 1 Tab PO HS Tylenol (Acetaminophen) 325 Mg Tablet 325 Mg PO PRN Q6HRS PRN Gabapentin 100 Mg Capsule 100 Mg PO TID Vitals/I & O Vital Sign - Last 24 Hours 03/21/17 03/21/17 03/21/17 03/21/17 15:08 19:30 20:15 23:35 Temp 97.8 98.1 97.4 97.8 98.1 97.4 Pulse 66 64 67 Resp 18 18 16 B/P (MAP) 125/52 (76) 117/53 (74) 128/36 (66) Pulse Ox 95 96 96 O2 Delivery Room Air Room Air Room Air Room Air 03/22/17 03/22/17 03/22/17 03/22/17 03:08 07:00 08:00 08:20 Temp 97.7 97.7 97.7 97.7 Pulse 68 66 66 Resp 18 18 B/P (MAP) 143/57 (85) 126/45 (72) 126/45 Pulse Ox 97 96 O2 Delivery Room Air Room Air Room Air 03/22/17 03/22/17 03/22/17 08:20 08:21 11:00 Temp 97.7 97.7 Pulse 66 66 57 Resp 18 B/P (MAP) 126/45 126/45 116/44 (68) Pulse Ox 96 O2 Delivery Room Air DAKOTA ARGUETA MD Mar 22, 2017 12:57
[2017-03-22 15:00] VITALS: BP 126/79
[2017-03-22] MEDS ORDERED: ASPI-630 PO (15:35)
--- NOTE | 2017-03-22 15:36 | PDOC3 ---
Discharge Summary [facility] Date of Admission: Mar 18, 2017 Discharge Date: Mar 22, 2017 Admitting Diagnosis AMS, 4days, with hallucination, 2/2 a small new right infarct recent Large right [employer] TENDER ischemic infarct conformed on 02/03/17, onset time unknown , not a candidate for TPA. possible hemarrhagic change as per son but cannot find a records in our systom, could be at [facility] and not on eliquis ever since stable chronic systolic CHF EF 405 metabolic encephalopathy pafib , not on AC htn aortic aneurysm hearing loss generalized weakness US showed multiple small thyroid nodule <1cm, tsh normal. no need treatment now Problems: CONSULTS neuro Brief Hospital Course 81yo F, h/o CVA, afib, chf, was sent from [facility] for AMS. as per her son, pt got CVA recently, eliquis was dced for ? intracranial bleeding?. She was dced to snf, then home. in the past 2-3 weeks, she was confused some times x3 time at least, also had TIA. pT LIVEes with family at home now, was noticed not acting right, baseline mild dementia. Today, when i talked to her, hard to arouse, said she was tiered, follow some commands by squeezing my hands. eats ok, no fever, chills, sob ,chest pain. able to walk with a walker. left side mild-moderate weakness post CVA MRI here showed a new small right infarct. Pt got hallucination, then good then less response from time to time. Repeated HeAD CT showed small area with hemarrhagic change, neuro still recommend asa 162mg daily ,and lovenox for dvt ppx. family decided to do home hospice, towards to comfort care. dc home with home hospice today. cont asa, and HTN meds. dc time 40min. Patient History: DIABETES MELLITUS FH: HTN (hypertension) FH: cancer Problems: Disposition home hospice CONDITION AT DISCHARGE: Stable Diet cardiac Scheduled Amlodipine Besylate (Amlodipine Besylate), 10 MG PO DAILY, (Reported) Aspirin (Aspirin), 162 MG PO DAILYWBKFT Clonazepam (Clonazepam), 1 TAB PO DAILY, (Reported) Gabapentin (Gabapentin), 100 MG PO TID, (Reported) Isosorbide Mononitrate (Isosorbide Mononitrate Er), 1 TAB PO DAILY, (Reported) Metoprolol Tartrate (Metoprolol Tartrate), 1 TAB PO DAILY, (Reported) Multivitamin (Multivitamins), 1 TAB PO HS, (Reported) Pantoprazole Sodium (Pantoprazole Sodium), 1 TAB PO DAILY, (Reported) Scheduled PRN Acetaminophen (Tylenol), 325 MG PO PRN Q6HRS PRN for PAIN, (Reported) Discontinued Medications Aspirin (Aspirin Ec), 81 MG PO DAILYWBKFT Digoxin (Digoxin), 125 MCG PO 3X/WEEK Loperamide HCl (Imodium A-D), 2 MG PO, (Reported) DAKOTA ARGUETA MD Mar 22, 2017 15:36
--- NOTE | 2017-03-22 19:24 | PDOC2 ---
PALLIATIVE CARE Palliative Care Note Palliative Care Consult requested by Dr. Isidro to address goals of care Patient drowsy. Follows commands and answers questions appropriately. Spoke with son Smith who met with [facility]. Goal is comfort care per their conversation. Robyn will assist with discharge arrangements. JINNY PABON Mar 22, 2017 19:24
== END 2017-03-22 20:00 | disposition hospice, home (50) | DRG 64 ==
LOC: 6 SOUTH 17:20
PROVIDERS: ADMIT Internal Medicine; ATTEND Internal Medicine
DX: I63.9 Cerebral infarction, unspecified (principal); G93.41 Metabolic encephalopathy; I42.9 Cardiomyopathy, unspecified; I50.22 Chronic systolic (congestive) heart failure; I11.0 Hypertensive heart disease with heart failure; F03.90 Unspecified dementia, unspecified severity, without behavioral disturbance, psychotic disturbance, mood disturbance, and anxiety; G81.94 Hemiplegia, unspecified affecting left nondominant side; I48.92 Unspecified atrial flutter; E11.9 Type 2 diabetes mellitus without complications; E04.1 Nontoxic single thyroid nodule; H91.90 Unspecified hearing loss, unspecified ear; I48.0 Paroxysmal atrial fibrillation; I71.9 Aortic aneurysm of unspecified site, without rupture; K21.9 Gastro-esophageal reflux disease without esophagitis; Z82.49 Family history of ischemic heart disease and other diseases of the circulatory system; M19.90 Unspecified osteoarthritis, unspecified site; Z85.9 Personal history of malignant neoplasm, unspecified; Z51.5 Encounter for palliative care; Z66 Do not resuscitate
CPT/HCPCS: 36415; 70450; 70551; 76536; 80048; 80162; 81001; 82607; 82962; 84443; 85025; 87086; 87186; 87641; J1650; 92610; 97110; 97116; 97535